=== PATIENT | female | born 1965 | race Caucasian/White ===

== ENCOUNTER 2016-09-03 07:19 | Emergency (ER) | payer MEDICAID ==
[~2016-09-03] VITALS: Ht 157.5 cm; Wt 75.8 kg
[~2016-09-03 07:19] MED LIST: ASPI-664 PO; CYAN500T46 PO; GABA100C PO; GLYB2.5T2 PO; SITA1TAB5 PO; UDROBDM PO
[2016-09-03 07:26] VITALS: Ht 157.5 cm; Wt 75.8 kg
[2016-09-03] MEDS ORDERED: ASPIRIN 325 MG TAB PO STA (07:38)
[2016-09-03] MEDS ORDERED: LIDOCAINE/MYLANTA 40 ML BTL PO ONE (08:00)
--- NOTE | 2016-09-03 08:33 | RADRPT ---
PROCEDURE: CT Brain without contrast. CLINICAL INDICATION: Left arm numbness TECHNIQUE: Routine CT scan of the brain was performed on a high resolution multi detector scanner without intravenous contrast. One or more of the following dose reduction techniques were used: Auto mated exposure control; Adjustment of the mA and/or kV according to patient size; Use of iterative r econstruction technique. CTDI = 43 mGy. DLP = 630 mGy-cm. COMPARISON: MRI brain 08/15/2016, CT brain 08/15/2016 FINDINGS: Hemorrhage: No evidence of intracranial hemorrhage. Acute ischemic changes: No evidence of acute ischemic changes. Mass effect/Midline shift: None. Parenchymal volume: Within normal limits for age. Ventricular system: Concordant with parenchymal volume. Chronic changes: Mild chronic-appearing microvascular ischemic changes of the supratentorial white m atter. Idiopathic appearing calcifications of the bilateral basal ganglia are present, unchanged. A therosclerotic calcifications of the cavernous portions of both internal carotid arteries are presen t. Extracranial soft tissues: Unremarkable. Calvarium: No fractures. Paranasal sinuses: Visualized paranasal sinuses are clear. Mastoid air cells: Visualized mastoid air cells are clear. IMPRESSION: No acute intracranial abnormalities. Mild chronic-appearing microvascular ischemic changes of the supratentorial white matter, unchanged. MRI of the brain may be useful for further evaluation. RPTAT: AADD .Daniel Walden MD, MD Date Time Electronically viewed and signed by .Daniel Walden MD, MD on 09/03/2016 08:32 .B/
--- NOTE | 2016-09-03 08:41 | RADRPT ---
PROCEDURE: XR Chest. CLINICAL INDICATION: chest pain TECHNIQUE: Single AP view of the chest were obtained COMPARISON: 08/15/2016 FINDINGS: The heart and mediastinum are within normal limits. The pulmonary vasculature are unremarkable. The aorta is unremarkable. There is no lung consolidation, pleural effusion or pneumothorax. There i s no acute osseous abnormality. IMPRESSION: No acute disease. RPTAT: AA .Brandie Contreras MD, Date Time Electronically viewed and signed by .Brandie Contreras MD, MD on 09/03/2016 08:40 .J/
--- NOTE | 2016-09-03 08:42 | RADRPT ---
PROCEDURE: CT cervical spine without contrast CLINICAL INDICATION: Left neck and upper back pain radiating to left arm TECHNIQUE: CT scan of the cervical spine was performed on a multidetector CT scanner.. No IV cont rast was administered. Coronal and sagittal reformatted images were obtained from the axial source images. Images were reviewed on a high-resolution PACS workstation. CTDI = 22.24 mGy DLP: 500.09 mGy-cm One or more of the following dose reduction techniques were used: Automated exposure control Adjustment of the mA and / or kV according to patient size Use of iterative reconstruction technique. COMPARISON: None. FINDINGS: There is no CT evidence of acute fracture or subluxation. There is straightening of the usual cervical lordosis. Vertebral body heights and alignment are oth erwise preserved. The intervertebral disk spaces are normal. Small anterior osteophytes are seen at C5-C6 with calcif ication/ossification of the disk. There is mild to moderate facet arthrosis at C7-T1 on the right. There is no evidence of central canal or foraminal stenosis at any level. The prevertebral soft tissues are normal. The lung apices are clear. The paraspinal soft tissues are grossly unremarkable. IMPRESSION: 1. No CT evidence of acute fracture subluxation of the cervical spine. If there is persistent clin ical concern consider MRI. 2. Straightening of the usual cervical lordosis. 3. Mild degenerative changes as above. RPTAT: UU .Jake Read MD, Date Time Electronically viewed and signed by .Jake Read MD, on 09/03/2016 08:41 .K/
[2016-09-03 08:50] LABS: BASOPHIL # 0.1 10^3/ul (0.0-0.1); BASOPHILS % 0.3 % (0.0-2.0); HEMATOCRIT 39.2 % (37.0-47.0); HEMOGLOBIN 13.5 g/dl (12.0-16.0); LYMPHOCYTES # 1.9 10^3/ul (0.8-2.9); LYMPHOCYTES % 11.3 % (15.0-51.0); MEAN CORPUSCULAR HEMOGLOBIN 31.7 pg (29.0-33.0); MEAN CORPUSCULAR HGB CONC 34.4 g/dl (32.0-37.0); MEAN CORPUSCULAR VOLUME 92.2 fl (82.0-101.0); MONOCYTE # 0.9 10^3/ul (0.3-0.9); MONOCYTES % 5.3 % (0.0-11.0); NEUTROPHIL # 13.7 10^3/ul (1.6-7.5); NEUTROPHILS % 83.1 % (39.0-77.0); PLATELET COUNT 443 10^3/UL (140-440); RED BLOOD COUNT 4.25 10^6/ul (4.20-5.40); RED CELL DISTRIBUTION WIDTH 12.8 % (11.5-14.5); UNCORRECTED WBC 16.5 10^3/ul (4.8-10.8); WHITE BLOOD COUNT 16.5 10^3/ul (4.8-10.8)
[2016-09-03] MEDS ORDERED: DICLOFENAC SODIUM 37.5 MG/ML VIAL IV STA (08:54)
[2016-09-03 08:58] LABS: INR 0.86; PARTIAL THROMBOPLASTIN TIME 24.7 Sec (25.0-35.0); PROTIME 11.7 Sec (12.2-14.2); PT RATIO 0.9
[2016-09-03 09:01] LABS: CHLORIDE 102 mmol/L (97-110); POTASSIUM 4.2 mmol/L (3.5-5.1); SODIUM 143 mmol/L (135-144)
[2016-09-03 09:03] LABS: CREATININE 0.58 mg/dl (0.44-1.00)
[2016-09-03 09:04] LABS: ANION GAP 17 (8-16); BLOOD UREA NITROGEN 25 mg/dl (7-20); CARBON DIOXIDE 28 mmol/L (21-31)
[2016-09-03 09:05] LABS: CALCIUM 9.7 mg/dl (8.4-10.2)
[2016-09-03 09:08] LABS: B-TYPE NATRIURETIC PEPTIDE 189 PG/ML (0-125)
[2016-09-03 09:12] LABS: TROPONIN-I < 0.012 ng/ml (0.00-0.12)
[2016-09-03 09:13] LABS: GLUCOSE 461 mg/dl (70-220)
[2016-09-03 09:29] LABS: CONDITION 1
[2016-09-03] MEDS ORDERED: SOD CHLORIDE 0.9% 1,000 ML IV ONE (09:30)
[2016-09-03 10:23] LABS: ADD UMIC NO; URINE BILIRUBIN (Dip) NEGATIVE (NEGATIVE); URINE BLOOD (Dip) NEGATIVE (NEGATIVE); URINE COLOR LT. YELLOW (YELLOW); URINE GLUCOSE (Dip) >=1000 % (NEGATIVE); URINE KETONES (Dip) NEGATIVE (NEGATIVE); URINE LEUKOCYTE ESTERASE (Dip) NEGATIVE (NEGATIVE); URINE NITRITE (Dip) NEGATIVE (NEGATIVE); URINE TOTAL PROTEIN (Dip) NEGATIVE (NEGATIVE); URINE UROBILINOGEN (Dip) 0.2 E.U./dL (0.1-1.0)
[2016-09-03] MEDS ORDERED: RANI150T9 PO (11:40)
[2016-09-03] MEDS ORDERED: ONDA4TAB11 PO (11:40)
[2016-09-03] MEDS ORDERED: NAPR-688 PO (11:40)
--- NOTE | 2016-09-03 12:10 | ERD ---
ER Documentation Chief Complaint Date/Time DATE: 09/03/16 TIME: 11:56 Chief Complaint back,cp, left arm numbness rad chest and back x 2 days HPI This 50-year-old female presents to the ER with midsternal burning chest pain that feels like it's hot that radiates to the back. She's had this for 2 days now. Chest has pain at the bottom of her posterior neck which travels all the way down her left arm to her left fingertips and causes numbness. Is made worse by certain neck movements. She has had nausea as well. ROS All systems reviewed and are negative except as per history of present illness. Medications Home Meds Active Scripts Ondansetron (Zofran Odt) 4 Mg Tab.rapdis, 4 MG PO Q6 for NAUSEA, #10 Prov:ESTHER COULTER DO 09/03/16 Naproxen* (Naproxen*) 500 Mg Tablet, 500 MG PO BID Y for PAIN, #20 TAB Prov:ESTHER COULTER DO 09/03/16 Ranitidine Hcl* (Zantac*) 150 Mg Tablet, 150 MG PO BID Y for EPIGASTRIC PAIN, # 30 TAB Prov:ESTHER COULTER DO 09/03/16 Aspirin* (Aspirin* EC) 81 Mg Tablet., 81 MG PO DAILY for 30 Days, #30 TAB 1 Refill Prov:TRAVON JETER MD 08/16/16 Gabapentin* (Neurontin*) 100 Mg Capsule, 100 MG PO BID, #60 CAP Prov:TRAVON JETER MD 08/16/16 Glyburide* (Glyburide*) 2.5 Mg Tablet, 2.5 MG PO BID, #60 TAB Prov:TRAVON JETER MD 08/16/16 Sitagliptin Phos/Metformin HCl (Janumet 50-1,000 mg Tablet) 1 Each Tablet, 1 EACH PO BID, #60 TAB Prov:TRAVON JETER MD 08/16/16 Cyanocobalamin* (Vitamin B12*) 500 Mcg Tab, 1000 MCG PO DAILY, #30 TAB Prov:TRAVON JETER MD 08/16/16 Discontinued Scripts Guaifenesin-Dextromethorphan* (Robitussin* DM) 100MG/10MG/5ML Syrup, 5 ML PO Q6H Y for COUGH, #100 ML Prov:TRAVON JETER MD 08/16/16 Allergies Allergies: Coded Allergies: No Known Allergy (Unverified , 09/03/16) PMhx/Soc History of Surgery: Yes (see note) Anesthesia Reaction: No Hx Neurological Disorder: No Hx Respiratory Disorders: No Hx Cardiac Disorders: No Hx Psychiatric Problems: No Hx Miscellaneous Medical Probl: Yes (see note) Hx Alcohol Use: No Hx Substance Use: No Hx Tobacco Use: No Smoking Status: Never smoker Physical Exam Vitals Vital Signs Date Time Temp Pulse Resp B/P Pulse Ox O2 Delivery O2 Flow Rate FiO2 09/03/16 11:14 98.1 81 16 142/78 99 Room Air 09/03/16 07:26 97.8 90 18 116/74 99 Physical Exam Const: [] No distress Head: Atraumatic Eyes: Normal Conjunctiva ENT: Normal External Ears, Nose and Mouth. Neck: Full range of motion..~ No meningismus. Resp: Clear to auscultation bilaterally Cardio: Regular rate and rhythm, no murmurs Abd: Soft, mild epigastric pain without guarding or rebound, non distended. Normal bowel sounds Skin: No petechiae or rashes Back: No midline or flank tenderness Ext: No cyanosis, or edema, good motor function of bilateral hands with good 2. sensation Hand. Sensation intact. Distal pulses intact all 4 extremities Neur: Awake and alert and oriented 3, no focal deficits Psych: Normal Mood and Affect Result Diagram: 09/03/16 0820 09/03/16 0820 Results 24 hrs Laboratory Tests Test 09/03/16 08:20 Activated Partial Thromboplast Time 24.7Sec Anion Gap 17 B-Type Natriuretic Peptide 189PG/ML Basophils # 0.110^3/ul Basophils % 0.3% Blood Urea Nitrogen 25mg/dl Calcium Level 9.7mg/dl Carbon Dioxide Level 28mmol/L Chloride Level 102mmol/L Creatinine 0.58mg/dl Eosinophils # 0.010^3/ul Eosinophils % 0.0% Glucose Level 461mg/dl Hematocrit 39.2% Hemoglobin 13.5g/dl INR International Normalized Ratio 0.86 Lymphocytes # 1.910^3/ul Lymphocytes % 11.3% Mean Corpuscular Hemoglobin 31.7pg Mean Corpuscular Hemoglobin Concent 34.4g/dl Mean Corpuscular Volume 92.2fl Mean Platelet Volume 9.0fl Monocytes # 0.910^3/ul Monocytes % 5.3% Neutrophils # 13.710^3/ul Neutrophils % 83.1% Nucleated Red Blood Cells # 0.010^3/ul Nucleated Red Blood Cells % 0.0/100WBC Platelet Count 15650^3/UL Potassium Level 4.2mmol/L Prothrombin Time 11.7Sec Prothrombin Time Ratio 0.9 Red Blood Count 4.2510^6/ul Red Cell Distribution Width 12.8% Sodium Level 143mmol/L Troponin I < 0.012ng/ml Urine Bilirubin NEGATIVE Urine Clarity CLEAR Urine Color LT. YELLOW Urine Glucose >=1000% Urine Hemoglobin NEGATIVE Urine Ketones NEGATIVE Urine Leukocyte Esterase NEGATIVE Urine Nitrite NEGATIVE Urine Specific [place] 1.020 Urine Total Protein NEGATIVE Urine Urobilinogen 0.2 E.U./dL Urine pH 6.0 White Blood Count 16.510^3/ul Current Medications Medications (Trade) Dose Ordered Sig/Tyree Route PRN Reason Start Time Stop Time Status Last Admin Dose Admin Miscellaneous Medication (Gi Cocktail (2)) 40 ml ONCE ONCE PO 09/03/16 08:00 09/03/16 08:01 DC 09/03/16 08:03 Aspirin (Aspirin) 325 mg ONCE STAT PO 09/03/16 07:38 09/03/16 07:46 DC 09/03/16 08:03 Diclofenac Sodium 37.5 mg 37.5 mg ONCE STAT IV 09/03/16 08:54 09/03/16 08:56 DC 09/03/16 09:18 Sodium Chloride (NS) 1,000 ml @ 1,000 mls/hr Q1H ONCE IV 09/03/16 09:30 09/03/16 10:29 DC 09/03/16 09:18 Procedures/MDM Patient with chest pain that is likely represented by GERD and neck pain with radicular symptoms likely radiculopathy, cervical and thoracic vertebrae. Patient does have evidence of osteoarthrosis at the T1 C7 interspace. There is no mass effect from all stenosis this does fit the patient's symptoms well as they increase with neck pain. Very low suspicion for acute cardiac syndrome or aortic dissection. Patient had the pain for 2 days without much resolution after she received a GI cocktail the pain went away completely. His also given Dilaudid just IV which helped with her radicular symptoms and she was feeling much better and very thankful prior to discharge. Vital signs were stable. She did have signs of dehydration with hemoconcentration with high hemoglobin. She also had hyperglycemia she had not been able take her diabetic medications today. She is given a liter of normal saline for these problems to hydrate. I' m discharging with primary care follow-up in the next couple days as well as instructions to obtain an echocardiogram as an outpatient. I'm discharging with Zantac, naproxen, Zofran. EKG interpretation: Normal sinus rhythm rate 86, normal axis, no ST or allergies concerning for acute ischemia, normal intervals. Q waves in anteroseptal leads. lumber salvager interpretation: Normal sinus rhythm without arrhythmia Chest x-ray interpretation: No acute process no any standard pneumothorax no pulmonary edema no fractures Departure Diagnosis: Primary Impression: GERD (gastroesophageal reflux disease) Additional Impressions: Chest pain Hyperglycemia Dehydration Condition: Stable Patient Instructions: Chest Pain, Uncertain Cause, Gerd (Adult) Additional Instructions: Llame al doctor IVA y ashleigh lisa FATOUMATA PARA DENTRO DE 2-3 CACERES.Dgale a la secretaria que nosotros le instruimos hacer esta fatoumata. Consigue un referal para un ECHOCARDIOGRAMA. Avise o llame si rogers condicin se empeora antes de la fatoumata. Regresa aqui si peor o no mejor. ESTHER COULTER DO Sep 03, 2016 12:07
[2016-09-03 12:45] VITALS: BP 136/88; PULSE 67; RESP 16; TEMP 98.5
== END 2016-09-03 12:47 | disposition home or self-care (01) ==
LOC: E/R 07:19
DX: K21.9 Gastro-esophageal reflux disease without esophagitis (principal); R11.0 Nausea; E86.0 Dehydration; R73.9 Hyperglycemia, unspecified; R07.9 Chest pain, unspecified; R20.0 Anesthesia of skin; Z79.82 Long term (current) use of aspirin; Z79.84 Long term (current) use of oral hypoglycemic drugs
CPT/HCPCS: 36415; 70450; 71010; 72125; 80048; 81003; 83880; 84484; 85025; 85610; 85730; 93005; 96374; J7030; Z7502; Z7610

== ENCOUNTER 2016-10-14 18:27 | Emergency (ER) | payer MEDICAID, OTHER ==
[~2016-10-14] VITALS: Ht 157.5 cm; Wt 67.2 kg
[~2016-10-14 18:27] MED LIST changes: +NAPR-688 PO; +ONDA4TAB11 PO; +RANI150T9 PO; -UDROBDM PO
[2016-10-14 18:53] VITALS: Ht 157.5 cm; Wt 67.2 kg
[2016-10-14] MEDS ORDERED: LACTATED RINGER'S 1,000 ML IV STA (19:07)
[2016-10-14] MEDS ORDERED: SOD CHLORIDE 0.9% 2,000 ML IV STA (19:07)
[2016-10-14] MEDS ORDERED: ONDANSETRON 4 MG INJ IV STA (19:17)
[2016-10-14 19:30] LABS: ADD SCAN DIFF NO
[2016-10-14 19:32] LABS: BASOPHIL # 0.1 10^3/ul (0.0-0.1); BASOPHILS % 0.6 % (0.0-2.0); EOSINOPHILS # 0.1 10^3/ul (0.0-0.5); EOSINOPHILS % 0.9 % (0.0-7.0); HEMATOCRIT 41.9 % (37.0-47.0); HEMOGLOBIN 14.4 g/dl (12.0-16.0); LYMPHOCYTES # 1.9 10^3/ul (0.8-2.9); LYMPHOCYTES % 22.1 % (15.0-51.0); MEAN CORPUSCULAR HEMOGLOBIN 31.6 pg (29.0-33.0); MEAN CORPUSCULAR HGB CONC 34.4 g/dl (32.0-37.0); MEAN CORPUSCULAR VOLUME 92.1 fl (82.0-101.0); MEAN PLATELET VOLUME 11.1 fl (7.4-10.4); MONOCYTE # 0.6 10^3/ul (0.3-0.9); MONOCYTES % 7.2 % (0.0-11.0); NEUTROPHILS % 68.9 % (39.0-77.0); PLATELET COUNT 296 10^3/UL (140-415); RED BLOOD COUNT 4.55 10^6/ul (4.20-5.40); WHITE BLOOD COUNT 8.7 10^3/ul (4.8-10.8)
[2016-10-14 19:45] LABS: POTASSIUM 4.5 mmol/L (3.5-5.1)
[2016-10-14 19:47] LABS: CREATININE 0.68 mg/dl (0.44-1.00)
[2016-10-14 19:48] LABS: BILIRUBIN,INDIRECT 0.2 mg/dl (0-1.1); BILIRUBIN,TOTAL 0.2 mg/dl (0.2-1.3); CALCIUM 9.2 mg/dl (8.4-10.2); TOTAL PROTEIN 6.7 g/dl (6.1-8.1)
--- NOTE | 2016-10-14 20:08 | ERD ---
ER Documentation Chief Complaint Date/Time DATE: 10/14/16 TIME: 20:08 Chief Complaint sent by clinic for blood sugar of >400 HPI Patient is a 50-year-old female with diabetes who presents with hyperglycemia. The patient was seen in the clinic and her sugar was over 400 so she was sent to the ER for further evaluation. She felt dizzy. Her blood pressure was low. She is supposed to be taking medications for her diabetes. Upon review of old medical record she has multiple visits to the ER many of which were for hyperglycemia. ROS All systems reviewed and are negative except as per history of present illness. Medications Home Meds Active Scripts Ranitidine Hcl* (Zantac*) 150 Mg Tablet, 150 MG PO BID Y for EPIGASTRIC PAIN, # 30 TAB Prov:ESTHER COULTER DO 09/03/16 Aspirin* (Aspirin* EC) 81 Mg Tablet.dr, 81 MG PO DAILY for 30 Days, #30 TAB 1 Refill Prov:TRAVON JETER MD 08/16/16 Gabapentin* (Neurontin*) 100 Mg Capsule, 100 MG PO BID, #60 CAP Prov:TRAVON JETER MD 08/16/16 Glyburide* (Glyburide*) 2.5 Mg Tablet, 2.5 MG PO BID, #60 TAB Prov:TRAVON JETER MD 08/16/16 Sitagliptin Phos/Metformin HCl (Janumet 50-1,000 mg Tablet) 1 Each Tablet, 1 EACH PO BID, #60 TAB Prov:TRAVON JETER MD 08/16/16 Reported Medications Meclizine Hcl* (Meclizine Hcl*) 25 Mg Tablet, 25 MG PO TID Y for DIZZINESS, TAB 10/14/16 Docusate Sodium* (Docusate Sodium*) 100 Mg Capsule, 100 MG PO TID, #60 CAP 10/14/16 Loratadine* (Loratadine*) 10 Mg Tablet, 10 MG PO DAILY, #30 TAB 10/14/16 Discontinued Scripts Ondansetron (Zofran Odt) 4 Mg Tab.rapdis, 4 MG PO Q6 for NAUSEA, #10 Prov:ESTHER COULTER DO 09/03/16 Naproxen* (Naproxen*) 500 Mg Tablet, 500 MG PO BID Y for PAIN, #20 TAB Prov:ESTHER COULTER DO 09/03/16 Cyanocobalamin* (Vitamin B12*) 500 Mcg Tab, 1000 MCG PO DAILY, #30 TAB Prov:TRAVON JETER MD 08/16/16 Allergies Allergies: Coded Allergies: No Known Allergy (Unverified , 10/14/16) PMhx/Soc History of Surgery: Yes (CS) Anesthesia Reaction: No Hx Neurological Disorder: No Hx Respiratory Disorders: No Hx Cardiac Disorders: No Hx Psychiatric Problems: No Hx Miscellaneous Medical Probl: Yes (DM, neuropathy) Hx Alcohol Use: No Hx Substance Use: No Hx Tobacco Use: No Smoking Status: Never smoker FmHx Family History: diabetes Physical Exam Vitals Vital Signs Date Time Temp Pulse Resp B/P Pulse Ox O2 Delivery O2 Flow Rate FiO2 10/14/16 18:53 98.7 90 20 89/49 98 Physical Exam Const: No acute distress Head: Atraumatic Eyes: Normal Conjunctiva ENT: Normal External Ears, Nose and Mouth. Neck: Full range of motion..~ No meningismus. Resp: Clear to auscultation bilaterally Cardio: Regular rate and rhythm, no murmurs Abd: Soft, non tender, non distended. Normal bowel sounds Skin: No petechiae or rashes Back: No midline or flank tenderness Ext: No cyanosis, or edema Neur: Awake and alert Psych: Normal Mood and Affect Result Diagram: 10/14/16192110/14/161921 Results 24 hrs Laboratory Tests Test 10/14/16 18:59 10/14/16 19:22 10/14/16 19:49 Bedside Glucose 360mg/dL 362mg/dL Alanine Aminotransferase (ALT/SGPT) 24IU/L Albumin 4.0g/dl Alkaline Phosphatase 150IU/L Anion Gap 18 Aspartate Amino Transf (AST/SGOT) 17IU/L Basophils # 0.110^3/ul Basophils % 0.6% Blood Urea Nitrogen 22mg/dl Calcium Level 9.2mg/dl Carbon Dioxide Level 27mmol/L Chloride Level 101mmol/L Creatinine 0.68mg/dl Direct Bilirubin 0.00mg/dl Eosinophils # 0.110^3/ul Eosinophils % 0.9% Glucose Level 388mg/dl Hematocrit 41.9% Hemoglobin 14.4g/dl Indirect Bilirubin 0.2mg/dl Lactic Acid Level 2.0mmol/L Lipase 309U/L Lymphocytes # 1.910^3/ul Lymphocytes % 22.1% Mean Corpuscular Hemoglobin 31.6pg Mean Corpuscular Hemoglobin Concent 34.4g/dl Mean Corpuscular Volume 92.1fl Mean Platelet Volume 11.1fl Monocytes # 0.610^3/ul Monocytes % 7.2% Neutrophils # 6.010^3/ul Neutrophils % 68.9% Nucleated Red Blood Cells # 0.010^3/ul Nucleated Red Blood Cells % 0.0/100WBC Platelet Count 82169^3/UL Potassium Level 4.5mmol/L Red Blood Count 4.5510^6/ul Red Cell Distribution Width 12.0% Sodium Level 141mmol/L Total Bilirubin 0.2mg/dl Total Protein 6.7g/dl White Blood Count 8.710^3/ul Current Medications Medications (Trade) Dose Ordered Sig/Tyree Route PRN Reason Start Time Stop Time Status Last Admin Dose Admin Sodium Chloride 2,000 ml @ 1,000 mls/hr Q2H STAT IV 10/14/16 19:07 10/14/16 21:06 10/14/16 19:33 Lactated Ringer's (Lr) 1,000 ml @ 1,000 mls/hr Q1H STAT IV 10/14/16 19:07 10/14/16 20:06 DC 10/14/16 19:33 Ondansetron HCl (Zofran Inj) 4 mg ONCE STAT IV 10/14/16 19:17 10/14/16 19:18 DC 10/14/16 19:33 Procedures/MDM EKG read by me: Rate/Rhythm: Regular rate and rhythm at a rate of 85 Intervals: Normal Impression: No evidence of ischemia or arrhythmia Patient is a 50-year-old female presents with acute hyperglycemia. She was found to have hyperglycemia but her bicarbonate was normal and at this point I doubt acute diabetic ketoacidosis. She was given 3 L of fluid for fluid resuscitation and feels much better. Her blood pressure is improved. I believe outpatient management is appropriate. The fluids will help to bring down her sugar as well. I will not give any insulin at this time. The patient can follow-up with her primary doctor within 24-48 hours for reevaluation. She will need to discuss with her primary doctor about potentially changing her diabetic regimen. Departure Diagnosis: Primary Impression: Hyperglycemia RAMILA SHEIKH MD Oct 14, 2016 20:08
[2016-10-14] MEDS ORDERED: LORA10TA3 PO (20:21)
[2016-10-14] MEDS ORDERED: DOCU-159 PO (20:22)
[2016-10-14] MEDS ORDERED: MECL-77 PO (20:25)
[2016-10-14 21:06] VITALS: BP 148/97; PULSE 93; RESP 15
== END 2016-10-14 21:06 | disposition home or self-care (01) ==
LOC: E/R 18:27
DX: E11.65 Type 2 diabetes mellitus with hyperglycemia (principal); R42 Dizziness and giddiness; Z79.84 Long term (current) use of oral hypoglycemic drugs; Z79.82 Long term (current) use of aspirin
CPT/HCPCS: 36415; 80048; 80076; 82962; 83605; 83690; 85025; 96374; J2405; J7030; J7120; Z7502; 93005

== ENCOUNTER 2016-11-15 16:55 | Emergency (ER) | payer OTHER ==
[~2016-11-15] VITALS: Ht 160 cm; Wt 68.0 kg
[~2016-11-15 16:55] MED LIST changes: -CYAN500T46 PO; +DOCU-159 PO; +LORA10TA3 PO; +MECL-77 PO; -NAPR-688 PO; -ONDA4TAB11 PO
[2016-11-15 17:02] VITALS: Ht 160 cm; Wt 68.0 kg
[2016-11-15] MEDS ORDERED: HYDROCODONE/APAP (5/325) TAB PO ONE (18:30)
[2016-11-15 18:59] LABS: ADD SCAN DIFF NO
[2016-11-15 19:01] LABS: BASOPHILS % 0.5 % (0.0-2.0); EOSINOPHILS # 0.1 10^3/ul (0.0-0.5); EOSINOPHILS % 1.5 % (0.0-7.0); HEMATOCRIT 44.4 % (37.0-47.0); HEMOGLOBIN 15.1 g/dl (12.0-16.0); LYMPHOCYTES # 2.3 10^3/ul (0.8-2.9); LYMPHOCYTES % 29.7 % (15.0-51.0); MEAN CORPUSCULAR HEMOGLOBIN 31.3 pg (29.0-33.0); MEAN CORPUSCULAR VOLUME 92.1 fl (82.0-101.0); MEAN PLATELET VOLUME 10.7 fl (7.4-10.4); MONOCYTE # 0.6 10^3/ul (0.3-0.9); MONOCYTES % 7.6 % (0.0-11.0); NEUTROPHIL # 4.7 10^3/ul (1.6-7.5); NEUTROPHILS % 60.3 % (39.0-77.0); PLATELET COUNT 286 10^3/UL (140-415); RED BLOOD COUNT 4.82 10^6/ul (4.20-5.40); RED CELL DISTRIBUTION WIDTH 12.2 % (11.5-14.5); WHITE BLOOD COUNT 7.8 10^3/ul (4.8-10.8)
[2016-11-15 19:02] LABS: ADD UMIC NO; URINE BILIRUBIN (Dip) NEGATIVE (NEGATIVE); URINE BLOOD (Dip) NEGATIVE (NEGATIVE); URINE COLOR LT. YELLOW (YELLOW); URINE KETONES (Dip) NEGATIVE (NEGATIVE); URINE LEUKOCYTE ESTERASE (Dip) NEGATIVE (NEGATIVE); URINE NITRITE (Dip) NEGATIVE (NEGATIVE); URINE TOTAL PROTEIN (Dip) NEGATIVE (NEGATIVE); URINE UROBILINOGEN (Dip) 0.2 E.U./dL (0.1-1.0)
--- NOTE | 2016-11-15 19:13 | RADRPT ---
PROCEDURE: CT Abdomen and Pelvis without contrast. CLINICAL INDICATION: Abdominal pain post fall with back pain TECHNIQUE: CT scan of the abdomen and pelvis without contrast was performed without intravenous co ntrast. Coronal and sagittal reformatted images were obtained from the axial source images. Images were reviewed on a high-resolution PACS workstation. CTDI 16 mGy, DLP 861 mGy-cm One or more of the following dose reduction techniques were used: Automated exposure control Adjustment of the mA and/or kV according to patient size. Use of iterative reconstruction technique. COMPARISON: 05/13/2016 FINDINGS: There is minimal scarring within the right middle lobe. The lung bases are otherwise clear. The hea rt size is normal. The aorta and its branches are normal in size and caliber with minimal atherosclerotic calcification s. Again noted is a right pelvic kidney with a few small nonobstructive calculi measuring up to 2 mm. T here is similar appearance of the small obstructive 2-3 mm calculi within the superior and inferior poles of the left kidney. There is no hydronephrosis. The ureters are normal in course and caliber. No perinephric fat stranding is noted. Evaluation of solid organs is limited due to the lack of intravenous contrast. However, the liver, g allbladder, spleen, pancreas, and adrenal glands are unremarkable. The distal esophagus is unremarkable. The stomach is mildly distended and grossly unremarkable. Th e small bowel loops are normal in caliber, without evidence for small bowel obstruction. Stool is n oted throughout the colon. There is no bowel wall thickening or pneumatosis. The appendix is visua lized and is unremarkable. There is no free intraperitoneal fluid or pneumoperitoneum. There is no mesenteric, retroperitoneal, or pelvic lymphadenopathy. The bladder is mildly distended, but grossly unremarkable. The uterus and adnexa are unremarkable. There is no pelvic free fluid. There are no acute fractures. Multilevel degenerative disk disease is present within the thoracolum bar spine more prominent at L5-S1. Mild degenerative changes are also visualized within both hips. RPTAT: ZZ IMPRESSION: 1. No acute intra-abdominal abnormality. 2. Pelvic right kidney with a few small calculi measuring up to 2 mm. 3. Few nonobstructive calculi within the left kidney measuring up to 2-3 mm. 4. No acute fracture. Multilevel degenerative disk disease within the thoracolumbar spine more pro minent at L5-S1. .Brandie Bosch MD, MD Date Time Electronically viewed and signed by .Brandie Bosch MD, MD on 11/15/2016 19:12 .T/
[2016-11-15 19:14] LABS: ALBUMIN 4.4 g/dl (3.3-4.9)
[2016-11-15 19:15] LABS: POTASSIUM 3.9 mmol/L (3.5-5.1)
[2016-11-15 19:17] LABS: BILIRUBIN,INDIRECT 0.4 mg/dl (0-1.1); BILIRUBIN,TOTAL 0.4 mg/dl (0.2-1.3); CREATININE 0.57 mg/dl (0.44-1.00)
[2016-11-15 19:18] LABS: ALBUMIN/GLOBULIN RATIO 1.1; CALCIUM 9.7 mg/dl (8.4-10.2); TOTAL PROTEIN 8.4 g/dl (6.1-8.1)
--- NOTE | 2016-11-15 19:36 | RADRPT ---
PROCEDURE: XR Lumbar Spine. CLINICAL INDICATION: Back pain from trauma from fall TECHNIQUE: Two views of the lumbar spine are available for review COMPARISON: CT abdomen/pelvis from 05/13/2016 FINDINGS: The lumbar vertebral body heights are preserved. There are no acute fractures. There is minimal lo ss of height and anterior wedging of the T11 and T12 vertebral bodies which is unchanged since the p rior CT and may be physiologic. There is severe disk space narrowing at L5-S1. There is minimal di sk space narrowing with anterior endplate osteophytes at L3-L4 and L4-L5. Disk spaces are otherwise intact. Alignment is intact. Facet joints are intact. RPTAT: ZTorsten IMPRESSION: 1. Severe degenerative disk disease at L5-S1. 2. No acute fracture or malalignment of the lumbar spine. .Brandie Bosch MD, MD Date Time Electronically viewed and signed by .Brandie Bosch MD, on 11/15/2016 19:35 .T/
--- NOTE | 2016-11-15 19:38 | RADRPT ---
PROCEDURE: XR sacrum and coccyx CLINICAL INDICATION: Trauma from fall TECHNIQUE: AP and lateral views of the sacrum and coccyx were performed. COMPARISON: CT abdomen/pelvis from 05/13/[address] FINDINGS: There is no acute fracture. The bilateral sacroiliac joints and sacral arcuate lines are intact wit h mild osseous spurring. No erosive changes are visualized. There is a round calcific structure ov erlying the left sacroiliac joint superiorly measuring about 1.2 cm corresponding with an injection granuloma as seen on the same day CT. RPTAT: ZZ IMPRESSION: 1. No acute fracture. 2. Mild degenerative changes of the bilateral sacroiliac joints. .Brandie Bosch MD, MD Date Time Electronically viewed and signed by .Brandie Bosch MD, on 11/15/2016 19:37 .T/
--- NOTE | 2016-11-15 19:38 | ERD ---
ER Documentation Chief Complaint Date/Time DATE: 11/15/16 TIME: 19:35 Chief Complaint TRIPPED ON CURB, LOWER BACK PAIN X 3DAYS HPI This a 50-year-old female who presents to the emergency department today complaining of low back pain after a fall, abdominal pain, "bleeding from her bellybutton".. States she has pain in her liver. States she has taken Tylenol for pain. Denies any fevers or chills, nausea or vomiting. ROS All systems reviewed and are negative except as per history of present illness. Medications Home Meds Active Scripts Acetaminophen* (Tylophen*) 500 Mg Capsule, 1 CAP PO Q6H Y for PAIN AND OR ELEVATED TEMP, #30 CAP Prov:JOSEPH WANG PA-C 11/15/16 Naproxen* (Naprosyn*) 500 Mg Tablet, 500 MG PO BID Y for PAIN AND/OR INFLAMMATION, #30 TAB Prov:JOSEPH WANG PA-C 11/15/16 Tramadol HCl (Tramadol HCl) 50 Mg Tablet, 50 MG PO Q4 Y for PAIN, #20 TAB Prov:JOSEPH WANG PA-C 11/15/16 Ranitidine Hcl* (Zantac*) 150 Mg Tablet, 150 MG PO BID Y for EPIGASTRIC PAIN, # 30 TAB Prov:ESTHER COULTER DO 09/03/16 Aspirin* (Aspirin* EC) 81 Mg Tablet., 81 MG PO DAILY for 30 Days, #30 TAB 1 Refill Prov:TRAVON JETER MD 08/16/16 Gabapentin* (Neurontin*) 100 Mg Capsule, 100 MG PO BID, #60 CAP Prov:TRAVON JETER MD 08/16/16 Glyburide* (Glyburide*) 2.5 Mg Tablet, 2.5 MG PO BID, #60 TAB Prov:TRAVON JETER MD 08/16/16 Sitagliptin Phos/Metformin HCl (Janumet 50-1,000 mg Tablet) 1 Each Tablet, 1 EACH PO BID, #60 TAB Prov:TRAVON JETER MD 08/16/16 Reported Medications Meclizine Hcl* (Meclizine Hcl*) 25 Mg Tablet, 25 MG PO TID Y for DIZZINESS, TAB 10/14/16 Docusate Sodium* (Docusate Sodium*) 100 Mg Capsule, 100 MG PO TID, #60 CAP 10/14/16 Loratadine* (Loratadine*) 10 Mg Tablet, 10 MG PO DAILY, #30 TAB 10/14/16 Allergies Allergies: Coded Allergies: No Known Allergy (Unverified , 10/14/16) PMhx/Soc History of Surgery: Yes (CS) Anesthesia Reaction: No Hx Neurological Disorder: No Hx Respiratory Disorders: No Hx Cardiac Disorders: No Hx Psychiatric Problems: No Hx Miscellaneous Medical Probl: Yes (DM, neuropathy) Hx Alcohol Use: No Hx Substance Use: No Hx Tobacco Use: No Physical Exam Vitals Vital Signs Date Time Temp Pulse Resp B/P Pulse Ox O2 Delivery O2 Flow Rate FiO2 11/15/16 19:50 98.2 88 16 102/54 100 Room Air 11/15/16 17:02 98.3 90 22 109/68 100 Physical Exam Const: No acute distress Head: Atraumatic Eyes: Normal Conjunctiva ENT: Normal External Ears, Nose and Mouth. Neck: Full range of motion..~ No meningismus. Resp: Clear to auscultation bilaterally Cardio: Regular rate and rhythm, no murmurs Abd: Soft, diffuse abdominal pain in all 4 quadrants. non distended. Normal bowel sounds Skin: No petechiae or rashes Back: Lumbar spine and coccyx with midline tenderness. Bilateral paraspinal tenderness. Pulses 2+. Distal neurovascularly intact Ext: No cyanosis, or edema Neur: Awake and alert Psych: Normal Mood and Affect Result Diagram: 11/15/16 1830 11/15/16 1830 Results 24 hrs Laboratory Tests Test 11/15/16 18:30 White Blood Count 7.810^3/ul Red Blood Count 4.8210^6/ul Hemoglobin 15.1g/dl Hematocrit 44.4% Mean Corpuscular Volume 92.1fl Mean Corpuscular Hemoglobin 31.3pg Mean Corpuscular Hemoglobin Concent 34.0g/dl Red Cell Distribution Width 12.2% Platelet Count 22805^3/UL Mean Platelet Volume 10.7fl Neutrophils % 60.3% Lymphocytes % 29.7% Monocytes % 7.6% Eosinophils % 1.5% Basophils % 0.5% Nucleated Red Blood Cells % 0.0/100WBC Neutrophils # 4.710^3/ul Lymphocytes # 2.310^3/ul Monocytes # 0.610^3/ul Eosinophils # 0.110^3/ul Basophils # 0.010^3/ul Nucleated Red Blood Cells # 0.010^3/ul Urine Color LT. YELLOW Urine Clarity CLEAR Urine pH 5.5 Urine Specific [place] >=1.030 Urine Ketones NEGATIVE Urine Nitrite NEGATIVE Urine Bilirubin NEGATIVE Urine Urobilinogen 0.2 E.U./dL Urine Leukocyte Esterase NEGATIVE Urine Hemoglobin NEGATIVE Urine Glucose 0.5%% Urine Total Protein NEGATIVE Sodium Level 140mmol/L Potassium Level 3.9mmol/L Chloride Level 102mmol/L Carbon Dioxide Level 29mmol/L Anion Gap 13 Blood Urea Nitrogen 21mg/dl Creatinine 0.57mg/dl Glucose Level 158mg/dl Calcium Level 9.7mg/dl Total Bilirubin 0.4mg/dl Direct Bilirubin 0.00mg/dl Indirect Bilirubin 0.4mg/dl Aspartate Amino Transf (AST/SGOT) 24IU/L Alanine Aminotransferase (ALT/SGPT) 29IU/L Alkaline Phosphatase 160IU/L Total Protein 8.4g/dl Albumin 4.4g/dl Globulin 4.00g/dl Albumin/Globulin Ratio 1.10 Lipase 258U/L Current Medications Medications (Trade) Dose Ordered Sig/Tyree Route PRN Reason Start Time Stop Time Status Last Admin Dose Admin Acetaminophen/ Hydrocodone Bitart 1 tab 1 tab ONCE ONCE PO 11/15/16 18:30 11/15/16 18:31 DC 11/15/16 18:43 Sodium Chloride (NS) 1,000 ml @ 1,000 mls/hr Q1H ONCE IV 11/15/16 20:00 11/15/16 20:59 11/15/16 19:50 [place] [id number] Radiology Main Line: [phone] DIAGNOSTIC IMAGING REPORT Patient: KARTHIK PIERRE : 1965 Age: 50 Sex: F MR #: [id number] DOS: 11/15/16 1813 Ordering MD: JOSEPH WANG PA-C Location: [facility] Room/Bed: PROCEDURE: CT Abdomen and Pelvis without contrast. CLINICAL INDICATION: Abdominal pain post fall with back pain TECHNIQUE: CT scan of the abdomen and pelvis without contrast was performed without intravenous contrast. Coronal and sagittal reformatted images were obtained from the axial source images. Images were reviewed on a high- resolution PACS workstation. CTDI 16 mGy, DLP 861 mGy-cm One or more of the following dose reduction techniques were used: Automated exposure control Adjustment of the mA and/or kV according to patient size. Use of iterative reconstruction technique. COMPARISON: 05/13/2016 FINDINGS: There is minimal scarring within the right middle lobe. The lung bases are otherwise clear. The heart size is normal. The aorta and its branches are normal in size and caliber with minimal atherosclerotic calcifications. Again noted is a right pelvic kidney with a few small nonobstructive calculi measuring up to 2 mm. There is similar appearance of the small obstructive 2-3 mm calculi within the superior and inferior poles of the left kidney. There is no hydronephrosis. The ureters are normal in course and caliber. No perinephric fat stranding is noted. Evaluation of solid organs is limited due to the lack of intravenous contrast. However, the liver, gallbladder, spleen, pancreas, and adrenal glands are unremarkable. The distal esophagus is unremarkable. The stomach is mildly distended and grossly unremarkable. The small bowel loops are normal in caliber, without evidence for small bowel obstruction. Stool is noted throughout the colon. There is no bowel wall thickening or pneumatosis. The appendix is visualized and is unremarkable. There is no free intraperitoneal fluid or pneumoperitoneum. There is no mesenteric, retroperitoneal, or pelvic lymphadenopathy. The bladder is mildly distended, but grossly unremarkable. The uterus and adnexa are unremarkable. There is no pelvic free fluid. There are no acute fractures. Multilevel degenerative disk disease is present within the thoracolumbar spine more prominent at L5-S1. Mild degenerative changes are also visualized within both hips. RPTAT: ZZ IMPRESSION: 1. No acute intra-abdominal abnormality. 2. Pelvic right kidney with a few small calculi measuring up to 2 mm. 3. Few nonobstructive calculi within the left kidney measuring up to 2-3 mm. 4. No acute fracture. Multilevel degenerative disk disease within the thoracolumbar spine more prominent at L5-S1. .Brandie Bosch MD, MD Date Time Electronically viewed and signed by .Brandie Bosch MD, MD on 11/15/2016 19: 12 .T/ CC: JOSEPH WANG PA-C DIAGNOSTIC IMAGING REPORT Patient: KARTHIK PIERRE : 1965 Age: 50 Sex: F MR #: [id number] DOS: 11/15/16 0000 Ordering MD: JOSEPH WANG PA-C Location: [facility] Room/Bed: PROCEDURE: XR Lumbar Spine. CLINICAL INDICATION: Back pain from trauma from fall TECHNIQUE: Two views of the lumbar spine are available for review COMPARISON: CT abdomen/pelvis from 05/13/2016 FINDINGS: The lumbar vertebral body heights are preserved. There are no acute fractures. There is minimal loss of height and anterior wedging of the T11 and T12 vertebral bodies which is unchanged since the prior CT and may be physiologic. There is severe disk space narrowing at L5-S1. There is minimal disk space narrowing with anterior endplate osteophytes at L3-L4 and L4-L5. Disk spaces are otherwise intact. Alignment is intact. Facet joints are intact. RPTAT: ZZ IMPRESSION: 1. Severe degenerative disk disease at L5-S1. 2. No acute fracture or malalignment of the lumbar spine. .Brandie Bosch MD, MD Date Time Electronically viewed and signed by .Brandie Bosch MD, MD on 11/15/2016 19: 35 .T/ CC: JOSEPH WANG PA-C DIAGNOSTIC IMAGING REPORT Patient: KARTHIK PIERRE : 1965 Age: 50 Sex: F MR #: [id number] DOS: 11/15/16 0000 Ordering MD: JOSEPH WANG PA-C Location: [facility] Room/Bed: PROCEDURE: XR sacrum and coccyx CLINICAL INDICATION: Trauma from fall TECHNIQUE: AP and lateral views of the sacrum and coccyx were performed. COMPARISON: CT abdomen/pelvis from 05/13/[address] FINDINGS: There is no acute fracture. The bilateral sacroiliac joints and sacral arcuate lines are intact with mild osseous spurring. No erosive changes are visualized. There is a round calcific structure overlying the left sacroiliac joint superiorly measuring about 1.2 cm corresponding with an injection granuloma as seen on the same day CT. RPTAT: ZZ IMPRESSION: 1. No acute fracture. 2. Mild degenerative changes of the bilateral sacroiliac joints. .Brandie Bosch MD, Date Time Electronically viewed and signed by .Brandie Bosch MD, on 11/15/2016 19: 37 .T/ CC: JOSEPH WANG PA-C Procedures/MDM This 50-year-old female who presents to the emergency department today with multiple complaints. Patient was complaining of back pain after mechanical fall 3 weeks ago and a reinjury 3 days ago. Given that there is trauma I did obtain images. Furthermore on physical exam patient was complaining of diffuse abdominal pain. Patient has a history of being admitted for hyperglycemia in the past. I did obtain laboratory workup as well as imaging of the patient's abdomen. Laboratory work shows no elevated white blood cell count. She is not anemic. Platelets are within normal limits. Electrolytes are within normal limits. Glucose is within normal limits. Liver functions within normal limits. Lipase is within normal limits. UA is negative for infection. CT abdomen pelvis noncontrast shows no acute intra-abdominal abnormality. There is a right kidney shows a few small calculi measuring up to 2 mm. There are a few nonobstructive calculi within the left kidney measuring up to 2-3 mm per there is no acute fracture. There is multilevel degenerative disc disease within the thoracic lumbar spine more prominent L5-S1. Images of the lumbar spine show no acute fracture. There is minimal loss of height and anterior wedging of the T11 and T12 vertebral bodies which is unchanged since prior CT may be physiologic. There is severe disc space narrowing at L5 and S1. There is minimal disc space narrowing with anterior endplate osteophytes at L3 and 4 and L4 and 5. The spaces are otherwise intact. Images of the lumbar spine show severe degenerative disc disease L5 and S1. Patient symptoms at this time is consistent with acute on chronic back pain secondary to fall. Her abdominal pain may be related to her renal stones. Patient's urine is negative for infection. She is afebrile and otherwise well- appearing. Low suspicion for pyelonephritis. Low suspicion for any acute surgical abdomen. Notified by nursing staff that blood pressure at discharge was 103/54. There is reported that patient was "wobbly" while walking. Patient was given a liter of fluids. She was also given [place] here in the emergency department for pain. Patient was given a prescription for tramadol for home, Naprosyn and Tylenol. Patient was signed out to Shonda Clements NP pending improvement in blood pressure. At this time the patient is stable for discharge and outpatient management. Patient should follow up with their PCP in the next 1-2 days. They may return to the emergency department sooner for any persistent or worsening of symptoms. Patient understood and agreed with the plan. Departure Diagnosis: Primary Impression: Multiple complaints Condition: JOSEPH Valentin PA-C Nov 15, 2016 19:38
[2016-11-15 19:50] VITALS: RESP 16; TEMP 98.2
[2016-11-15] MEDS ORDERED: TRAM50TA2 PO (19:51)
[2016-11-15] MEDS ORDERED: NAPR-260 PO (19:51)
[2016-11-15] MEDS ORDERED: ACET500C5 PO (19:53)
[2016-11-15] MEDS ORDERED: SOD CHLORIDE 0.9% 1,000 ML IV ONE (20:00)
[2016-11-15 20:36] VITALS: BP 113/71; PULSE 79
--- NOTE | 2016-11-15 21:36 | EN ---
Date/Time of Note Date/Time of Note DATE: 11/15/16 TIME: 21:35 ER Progress Note Gosia GUILLEN signed out patients to me, patient was getting 1 L normal saline IV bolus, recheck blood pressure was done, now is better, patient verbalizing much better, patient was discharged according to Gosia Granados instructions the patient is stable upon discharge. AALIYAH CRESPO NP Nov 15, 2016 21:36
== END 2016-11-15 20:49 | disposition home or self-care (01) ==
LOC: FTE 16:55
DX: S39.92XA Unspecified injury of lower back, initial encounter (principal); E11.9 Type 2 diabetes mellitus without complications; W18.39XA Other fall on same level, initial encounter; Y92.9 Unspecified place or not applicable
CPT/HCPCS: 36415; 72100; 72220; 74176; 80053; 81003; 83690; 85025; J7030; Z7502; Z7610

== ENCOUNTER 2016-12-16 00:30 | Inpatient (IN) | payer OTHER ==
[~2016-12-16] VITALS: Ht 157.5 cm; Wt 69.5 kg
[~2016-12-16 00:30] MED LIST changes: +ACET500C5 PO; +NAPR-260 PO; +TRAM50TA2 PO
[2016-12-16 00:37] VITALS: Ht 157.5 cm; Wt 69.5 kg
[2016-12-16] MEDS ORDERED: ONDANSETRON 4 MG INJ IV STA (02:09)
[2016-12-16] MEDS ORDERED: SOD CHLORIDE 0.9% 500 ML IV STA (02:09)
[2016-12-16] MEDS ORDERED: morphine 2 MG INJ IV STA (02:09)
--- NOTE | 2016-12-16 02:39 | ERD ---
ER Documentation Chief Complaint Date/Time DATE: 12/16/16 TIME: 02:38 Chief Complaint painful/burning/blood in urine x 2 days HPI 51-year-old female presents here in emergency department for complaints of lower abdominal pain and bilateral flank pain and hematuria dysuria for 2 days, burning pain is 6/10 scale, accompanied with hematuria. Patient did not take medications to help with symptoms. Patient is diabetic. Patient denies any diarrhea or vomiting, but is complaining of nausea. Patient denies any fever or chills. ROS All systems reviewed and are negative except as per history of present illness. Medications Home Meds Active Scripts Acetaminophen* (Tylophen*) 500 Mg Capsule, 1 CAP PO Q6H Y for PAIN AND OR ELEVATED TEMP, #30 CAP Prov:JSOEPH WANG PA-C 11/15/16 Naproxen* (Naprosyn*) 500 Mg Tablet, 500 MG PO BID Y for PAIN AND/OR INFLAMMATION, #30 TAB Prov:JOSEPH WANG PA-C 11/15/16 Tramadol HCl (Tramadol HCl) 50 Mg Tablet, 50 MG PO Q4 Y for PAIN, #20 TAB Prov:JOSEPH WANG PA-C 11/15/16 Ranitidine Hcl* (Zantac*) 150 Mg Tablet, 150 MG PO BID Y for EPIGASTRIC PAIN, # 30 TAB Prov:ESTHER COULTER DO 09/03/16 Aspirin* (Aspirin* EC) 81 Mg Tablet.dr, 81 MG PO DAILY for 30 Days, #30 TAB 1 Refill Prov:TRAVON JETER MD 08/16/16 Gabapentin* (Neurontin*) 100 Mg Capsule, 100 MG PO BID, #60 CAP Prov:TRAVON JETER MD 08/16/16 Glyburide* (Glyburide*) 2.5 Mg Tablet, 2.5 MG PO BID, #60 TAB Prov:TRAVON JETER MD 08/16/16 Sitagliptin Phos/Metformin HCl (Janumet 50-1,000 mg Tablet) 1 Each Tablet, 1 EACH PO BID, #60 TAB Prov:TRAVON JETER MD 08/16/16 Reported Medications Meclizine Hcl* (Meclizine Hcl*) 25 Mg Tablet, 25 MG PO TID Y for DIZZINESS, TAB 10/14/16 Docusate Sodium* (Docusate Sodium*) 100 Mg Capsule, 100 MG PO TID, #60 CAP 10/14/16 Loratadine* (Loratadine*) 10 Mg Tablet, 10 MG PO DAILY, #30 TAB 10/14/16 Allergies Allergies: Coded Allergies: No Known Drug Allergies (Verified Allergy, Unknown, 12/16/16) PMhx/Soc History of Surgery: Yes (CSx2) Anesthesia Reaction: No Hx Neurological Disorder: No Hx Respiratory Disorders: No Hx Cardiac Disorders: No Hx Psychiatric Problems: No Hx Miscellaneous Medical Probl: Yes (DM, neuropathy, leg swelling, kidney stones) Hx Alcohol Use: No Hx Substance Use: No Hx Tobacco Use: No Smoking Status: Never smoker FmHx Family History: No coronary disease, No diabetes, No other Physical Exam Vitals Vital Signs Date Time Temp Pulse Resp B/P Pulse Ox O2 Delivery O2 Flow Rate FiO2 12/16/16 04:54 97.6 84 16 101/57 98 12/16/16 00:37 99.0 98 20 129/70 97 Physical Exam GENERAL: The patient is well developed and appropriate for usual state of health, in no apparent distress. CHEST: Clear to auscultation bilaterally. There are no rales, wheezes or rhonchi. HEART: Regular rate and rhythm. No murmurs, clicks, rubs or gallops. No S3 or S4. ABDOMEN: Soft, nontender and nondistended. Good bowel sounds. No rebound or guarding. No gross peritonitis. No gross organomegaly or masses. No Flores sign or McBurney point tenderness. BACK: No midline tenderness. Bilateral CVA tenderness noted. EXTREMITIES: Equal pulses bilaterally. There is no peripheral clubbing, cyanosis or edema. No focal swelling or erythema. Full range of motion. Grossly neurovascularly intact. NEURO: Alert and oriented. Cranial nerves 2-12 intact. Motor strength in all 4 extremities with 5/5 strength. Sensation grossly intact. Normal speech and gait. SKIN: There is no apparent rash or petechia. The skin is warm and dry. HEMATOLOGIC AND LYMPHATIC: There is no evidence of excessive bruising or lymphedema. No gross cervical, axillary, or inguinal lymphadenopathy. Result Diagram: 12/16/16 0252 12/16/16 0252 Results 24 hrs Laboratory Tests Test 12/16/16 02:30 12/16/16 02:52 12/16/16 03:27 12/16/16 04:58 Urine Color RED Urine Clarity CLOUDY Urine pH 6.0 Urine Specific [place] 1.015 Urine Ketones NEGATIVE Urine Nitrite NEGATIVE Urine Bilirubin NEGATIVE Urine Urobilinogen 0.2 E.U./dL Urine Leukocyte Esterase TRACE Urine Microscopic RBC >200/HPF Urine Microscopic WBC 25-50/HPF Urine Squamous Epithelial Cells FEW Urine Bacteria FEW Urine Hemoglobin 3+ Urine Glucose >=1000% Urine Total Protein 1+ White Blood Count 18.710^3/ul Red Blood Count 4.4710^6/ul Hemoglobin 13.8g/dl Hematocrit 40.7% Mean Corpuscular Volume 91.1fl Mean Corpuscular Hemoglobin 30.9pg Mean Corpuscular Hemoglobin Concent 33.9g/dl Red Cell Distribution Width 12.4% Platelet Count 40725^3/UL Mean Platelet Volume 11.2fl Neutrophils % 80.9% Lymphocytes % 10.8% Monocytes % 6.4% Eosinophils % 1.1% Basophils % 0.3% Nucleated Red Blood Cells % 0.0/100WBC Neutrophils # 15.110^3/ul Lymphocytes # 2.010^3/ul Monocytes # 1.210^3/ul Eosinophils # 0.210^3/ul Basophils # 0.110^3/ul Nucleated Red Blood Cells # 0.010^3/ul Sodium Level 134mmol/L Potassium Level 4.5mmol/L Chloride Level 98mmol/L Carbon Dioxide Level 25mmol/L Anion Gap 16 Blood Urea Nitrogen 18mg/dl Creatinine 0.56mg/dl Glucose Level 481mg/dl Calcium Level 9.6mg/dl Total Bilirubin 0.5mg/dl Direct Bilirubin 0.00mg/dl Indirect Bilirubin 0.5mg/dl Aspartate Amino Transf (AST/SGOT) 16IU/L Alanine Aminotransferase (ALT/SGPT) 25IU/L Alkaline Phosphatase 218IU/L Total Protein 7.3g/dl Albumin 4.0g/dl Globulin 3.30g/dl Albumin/Globulin Ratio 1.21 Lipase 575U/L Bedside Glucose 398mg/dL 370mg/dL Current Medications Medications (Trade) Dose Ordered Sig/Tyree Route PRN Reason Start Time Stop Time Status Last Admin Dose Admin Sodium Chloride (NS) 500 ml @ 500 mls/hr Q1H STAT IV 12/16/16 02:09 12/16/16 03:08 DC 12/16/16 02:50 Morphine Sulfate (morphine) 2 mg ONCE STAT IV 12/16/16 02:09 12/16/16 02:12 DC 12/16/16 02:49 Ondansetron HCl (Zofran Inj) 4 mg ONCE STAT IV 12/16/16 02:09 12/16/16 02:12 DC 12/16/16 02:49 Insulin Aspart 10 unit 10 unit ONCE ONCE SC 12/16/16 03:30 12/16/16 03:31 DC 12/16/16 03:48 Sodium Chloride 500 ml @ 500 mls/hr Q1H ONCE IV 12/16/16 03:30 12/16/16 04:29 DC 12/16/16 03:32 Sodium Chloride 1,000 ml @ 1,000 mls/hr Q1H ONCE IV 12/16/16 05:30 12/16/16 06:29 Ceftriaxone Sodium (Rocephin) 50 ml @ 100 mls/hr ONCE ONCE IVPB 12/16/16 05:30 12/16/16 05:59 Normal saline IV bolus was given here in emergency department for rehydration, patient tolerated IV fluids.Patient was given medication for pain here in emergency department, after treatment, patient verbalized feeling much better. Patient's pain is improved.Patient was given Zofran here in the emergency department. After treatment, patient was able to tolerate po fluids here in the emergency department without any vomiting. There is no signs and symptoms of dehydration. PROCEDURE: CT ABDOMEN/PELVIS WITHOUT CONTRAST CLINICAL INDICATION: 51-year-old female with flank pain and hematuria. TECHNIQUE: The study was performed utilizing a [employer] VCT 64-slice CT scanner. Direct axial sections were obtained through the abdomen and pelvis without the use of intravenous contrast material. Sagittal and coronal reformations were obtained. One or more of the following dose reduction techniques were utilized: automated exposure control, adjustment of the mA and/ or kV according to patient's size or use of iterative reconstruction technique. The images were reviewed on a PACS workstation. CTD/vol = 14.0 mGy; Total Exam DLP = 815.8 mGy-cm. COMPARISON: CT abdomen/pelvis November 15, 2016. FINDINGS: There is minimal right middle lobe and trace right medial basal scarring without interval change. There is no evidence for significant pleural effusion. The liver has a normal size and contour without focal areas of abnormal density. No intrahepatic nor extrahepatic biliary ductal dilatation is seen. The gallbladder demonstrates no wall thickening nor pericholecystic fluid. No biliary stones are evident. The pancreas is without areas of abnormal attenuation. The spleen is identified and has a normal size without abnormal density. The adrenal glands are unremarkable. There is a ptotic right kidney extending into the right lower quadrant/pelvic region. There are a couple of punctate nonobstructing right upper and mid renal calculi. There are small nonobstructing left upper and lower pole renal ramon calculi with the largest calculus in the right upper pole measuring 3 x 2 mm and in the left lower pole ramon measuring 4 x 3 mm. These are similar to the patient's prior study. The urinary bladder contains a small volume of urine with a thickened wall measuring up to 12 mm There is [id number] retained stool throughout the colon without gross bowel obstruction. The appendix is visualized and is without abnormal thickening or surrounding inflammatory reaction. The uterus is unremarkable. There is no significant free fluid. The aortoiliac vessels are without aneurysmal dilatation. Degenerative changes are present within the spine most prominently within the lower thoracic and lumbar regions. IMPRESSION: 1. Bilateral small nonobstructing renal calculi. 2. Retained stool without gross bowel obstruction. 3. No CT evidence for appendicitis. 4. Thick-walled partially decompressed bladder. A cystitis could have this appearance. Clinical correlation is necessary. 5. Degenerative changes within the spine. .James Rivera MD, MD Date Time Electronically viewed and signed by .James Rivera MD, on 12/16/2016 03:31 .M/ CC: AALIYAH CRESPO [employer] Procedures/MDM Medical Decision Making: She has pyelonephritis with hyperglycemia and elevated lipase consistent with acute pancreatitis, discussed case with my attending physician, Dr. Regalado, agrees with plan of admission to the hospital, to start patient with IV Rocephin, patient was informed about this plan, agrees with the plan at this time, spoke with hospitalist, Dr. Mccabe, will admit patient to the hospital. Departure Diagnosis: Primary Impression: Pyelonephritis Additional Impressions: Pancreatitis Chronicity: acute Pancreatitis type: unspecified pancreatitis type Acute pancreatitis complication: unspecified Qualified Code: K85.90 - Acute pancreatitis, unspecified complication status, unspecified pancreatitis type Hyperglycemia Condition: Fair AALIYAH CRESPO NP Dec 16, 2016 02:39
[2016-12-16 02:59] LABS: ADD SCAN DIFF NO
[2016-12-16 03:10] LABS: POTASSIUM 4.5 mmol/L (3.5-5.1)
[2016-12-16 03:12] LABS: BILIRUBIN,INDIRECT 0.5 mg/dl (0-1.1); BILIRUBIN,TOTAL 0.5 mg/dl (0.2-1.3); CREATININE 0.56 mg/dl (0.44-1.00)
[2016-12-16 03:13] LABS: ALBUMIN/GLOBULIN RATIO 1.21; CALCIUM 9.6 mg/dl (8.4-10.2); TOTAL PROTEIN 7.3 g/dl (6.1-8.1)
[2016-12-16 03:17] LABS: ADD UMIC YES; URINE BILIRUBIN (Dip) NEGATIVE (NEGATIVE); URINE BLOOD (Dip) 3+ (NEGATIVE); URINE COLOR RED (YELLOW); URINE GLUCOSE (Dip) >=1000 % (NEGATIVE); URINE KETONES (Dip) NEGATIVE (NEGATIVE); URINE LEUKOCYTE ESTERASE (Dip) TRACE (NEGATIVE); URINE NITRITE (Dip) NEGATIVE (NEGATIVE); URINE TOTAL PROTEIN (Dip) 1+ (NEGATIVE); URINE UROBILINOGEN (Dip) 0.2 E.U./dL (0.1-1.0)
[2016-12-16 03:25] LABS: URINE RBCS >200 /HPF (0)
[2016-12-16 03:25] LABS: BASOPHIL # 0.1 10^3/ul (0.0-0.1); BASOPHILS % 0.3 % (0.0-2.0); EOSINOPHILS # 0.2 10^3/ul (0.0-0.5); EOSINOPHILS % 1.1 % (0.0-7.0); HEMATOCRIT 40.7 % (37.0-47.0); HEMOGLOBIN 13.8 g/dl (12.0-16.0); LYMPHOCYTES % 10.8 % (15.0-51.0); MEAN CORPUSCULAR HEMOGLOBIN 30.9 pg (29.0-33.0); MEAN CORPUSCULAR HGB CONC 33.9 g/dl (32.0-37.0); MEAN CORPUSCULAR VOLUME 91.1 fl (82.0-101.0); MEAN PLATELET VOLUME 11.2 fl (7.4-10.4); MONOCYTE # 1.2 10^3/ul (0.3-0.9); MONOCYTES % 6.4 % (0.0-11.0); NEUTROPHIL # 15.1 10^3/ul (1.6-7.5); NEUTROPHILS % 80.9 % (39.0-77.0); PLATELET COUNT 281 10^3/UL (140-415); RED BLOOD COUNT 4.47 10^6/ul (4.20-5.40); RED CELL DISTRIBUTION WIDTH 12.4 % (11.5-14.5); WHITE BLOOD COUNT 18.7 10^3/ul (4.8-10.8)
[2016-12-16 03:26] LABS: BACTERIA,URINE FEW; SQUAMOUS EPITHELIAL CELL,UR FEW
[2016-12-16] MEDS ORDERED: INSULIN ASPART [NOVOLOG] 3 ML PEN SC ONE ×2 (03:30→07:30)
[2016-12-16] MEDS ORDERED: SOD CHLORIDE 0.9% 500 ML IV ONE (03:30)
--- NOTE | 2016-12-16 03:31 | RADRPT ---
PROCEDURE: CT ABDOMEN/PELVIS WITHOUT CONTRAST CLINICAL INDICATION: 51-year-old female with flank pain and hematuria. TECHNIQUE: The study was performed utilizing a [employer] VCT 64-slice CT scanner. Direct axia l sections were obtained through the abdomen and pelvis without the use of intravenous contrast mate rial. Sagittal and coronal reformations were obtained. One or more of the following dose reduction t echniques were utilized: automated exposure control, adjustment of the mA and/or kV according to pat ient's size or use of iterative reconstruction technique. The images were reviewed on a PACS workst [email or web address]. CTD/vol = 14.0 mGy; Total Exam DLP = 815.8 mGy-cm. COMPARISON: CT abdomen/pelvis November 15, 2016. FINDINGS: There is minimal right middle lobe and trace right medial basal scarring without interval change. Th ere is no evidence for significant pleural effusion. The liver has a normal size and contour withou t focal areas of abnormal density. No intrahepatic nor extrahepatic biliary ductal dilatation is see n. The gallbladder demonstrates no wall thickening nor pericholecystic fluid. No biliary stones are evident. The pancreas is without areas of abnormal attenuation. The spleen is identified and has a normal size without abnormal density. The adrenal glands are unremarkable. There is a ptotic right k idney extending into the right lower quadrant/pelvic region. There are a couple of punctate nonobst ructing right upper and mid renal calculi. There are small nonobstructing left upper and lower pole renal ramon calculi with the largest calculus in the right upper pole measuring 3 x 2 mm and in the left lower pole ramon measuring 4 x 3 mm. These are similar to the patient's prior study. The urinary bladder contains a small volume of urine with a thickened wall measuring up to 12 mm There i s [id number] retained stool throughout the colon without gross bowel obstruction. The appendi x is visualized and is without abnormal thickening or surrounding inflammatory reaction. The uterus is unremarkable. There is no significant free fluid. The aortoiliac vessels are without aneurysmal dilatation. Degenerative changes are present within the spine most prominently within the lower thor acic and lumbar regions. IMPRESSION: 1. Bilateral small nonobstructing renal calculi. 2. Retained stool without gross bowel obstruction. 3. No CT evidence for appendicitis. 4. Thick-walled partially decompressed bladder. A cystitis could have this appearance. Clinical c orrelation is necessary. 5. Degenerative changes within the spine. .James Rivera MD, Date Time Electronically viewed and signed by .James Rivera MD, on 12/16/2016 03:31 .Norberto/
[2016-12-16 04:54] VITALS: TEMP 97.6
[2016-12-16] MEDS ORDERED: SOD CHLORIDE 0.9% 1,000 ML IV ONE (05:30)
[2016-12-16] MEDS ORDERED: CEFTRIAXONE 1 GM/50 ML (PMX) 50 ML IVPB ONE (05:30)
[2016-12-16] MEDS ORDERED: MECLIZINE 25 MG TAB PO PRN (07:30)
[2016-12-16] MEDS ORDERED: ACETAMINOPHEN 325 MG TAB PO PRN (07:30)
[2016-12-16] MEDS ORDERED: ONDANSETRON 4 MG INJ IV PRN (07:30)
[2016-12-16] MEDS ORDERED: morphine 2 MG INJ IV PRN (07:30)
[2016-12-16] MEDS ORDERED: RANITIDINE 150 MG TAB PO PRN (07:30)
[2016-12-16] MEDS ORDERED: NACL 0.9% 3 ML SYG IV SCH (07:30)
[2016-12-16] MEDS: INSULIN ASPART [NOVOLOG] 3 ML PEN SC SCH ×6 (08:00→23:45)
--- NOTE | 2016-12-16 08:12 | HP ---
Date/Time of Note Date/Time of Note DATE: 12/16/16 TIME: 07:58 Assessment/Plan VTE Prophylaxis VTE Prophylaxis Intervention: SCD's Assessment/Plan Assessment/Plan IMPRESSION 1. Sepsis as evidenced by leukocytosis and tachycardia 2/2 pyelonephritis 2. Gross Hematuria: likely 2/2 cystitis 3. Diabetes with hyperglycemia 4. Acute Pancreatitis 5. Hx of Dyslipidemia 6. Mild Hyponatremia PLAN Will keep NPO with IVF Abx Will f/u Culture results Adjust Insulin for better Glycemic control Pain mgmt Correct Electrolytes as needed HPI/ROS Admit Date/Time Admit Date/Time Hx of Present Illness This is a 51 yo female with history of diabetes and dyslipidemia who presented to ER c/o lower abd pain, bilateral flank pain, and hematuria, which occurs at the end of urination. Symptoms started 2 days ago. she reported weakness and fever as well. ER course: Vitals stable. WBC ~ 19,000, Glu almost 500, lipase ~ 600, UA consistent with UTI. CTa/p shows Bilateral small nonobstructing renal calculi, retained stool without gross bowel obstruction and hick-walled partially decompressed bladder. . PMH/Family/Social Past Surgical History Past Surgical Hx: no surgical history, other Social History Smoking Status: Never smoker Exam/Review of Systems Vital Signs Vitals Vital Signs Date Time Temp Pulse Resp B/P Pulse Ox O2 Delivery O2 Flow Rate FiO2 12/16/16 04:54 97.6 84 16 101/57 98 Exam Constitutional: other (sleepy, in mild distress) Head: atraumatic, normocephalic Eyes: EOMI, PERRL Respiratory: clear to auscultation, normal air movement Cardiovascular: nl pulses, regular rate and rhythm Gastrointestinal: other (tenderness on lower abd region and flank area), soft Extremities: normal pulses Labs Result Diagram: 12/16/16 0252 12/16/16 0252 Medications Medications Current Medications Sodium Chloride (NS) 1,000 ml @ 100 mls/hr Q10H IV ; Start 12/16/16 at 07:11; Status UNV Ondansetron HCl (Zofran Inj) 4 mg Q6H PRN IV NAUSEA AND/OR VOMITING; Start at 07:30; Status UNV Acetaminophen (Tylenol Tab) 650 mg Q6H PRN PO PAIN LEVEL 1-3 OR FEVER; Start at 07:30; Status UNV Morphine Sulfate (morphine) 2 mg Q4H PRN IV SEVERE PAIN LEVEL 7-10; Start 12/16 at 07:30; Status UNV Enoxaparin Sodium (Lovenox) 40 mg DAILY SC ; Start 12/16/16 at 09:00; Status UNV Miscellaneous Information (* Miscellaneous Pharmacy Order) HYPOGLYCEMIA PROTOCOL w... ONCE ONCE XX ; Start 12/16/16 at 07:30; Stop 12/16/16 at 07:31; Status UNV Aspirin (Halfprin) 81 mg DAILY PO ; Start 12/16/16 at 09:00; Status UNV Docusate Sodium (Colace) 100 mg TID PO ; Start 12/16/16 at 09:00; Status UNV Gabapentin (Neurontin) 100 mg BID PO ; Start 12/16/16 at 09:00; Status UNV Loratadine (Claritin) 10 mg DAILY PO ; Start 12/16/16 at 09:00; Status UNV Meclizine HCl (Antivert) 25 mg TID PRN PO DIZZINESS; Start 12/16/16 at 07:30; Status UNV Ranitidine HCl (Zantac) 150 mg BID PRN PO EPIGASTRIC PAIN; Start 12/16/16 at 07 :30; Status UNV Tramadol HCl (Ultram) 50 mg Q4 PRN PO PAIN; Start 12/16/16 at 07:30; Status UNV Miscellaneous Information 1 each BID PO ; Start 12/16/16 at 09:00; Status UNV Insulin Aspart (Novolog Insulin Pen) 12 unit ONCE ONCE SC ; Start 12/16/16 at 07:30; Stop 12/16/16 at 07:31; Status UNV PAULETTE CANNON MD Dec 16, 2016 08:11
[2016-12-16] MEDS: SOD CHLORIDE 0.9% 1,000 ML IV SCH ×2 (08:21→22:36)
[2016-12-16] MEDS ORDERED: GLUCOSE GEL 15 GRAM TUBE PO PRN ×2 (08:30)
[2016-12-16] MEDS ORDERED: GLUCAGON 1 MG INJ IM PRN (08:30)
[2016-12-16] MEDS ORDERED: DEXTROSE 50% 50 ML SYRINGE IV PRN ×2 (08:30)
[2016-12-16] MEDS ORDERED: GLUCOSE GEL 15 GRAM TUBE BUCCAL PRN (08:30)
[2016-12-16] MEDS ORDERED: ENOXAPARIN 40 MG/0.4 ML SYG SC SCH (09:00)
[2016-12-16] MEDS: GABAPENTIN 100 MG CAP PO SCH ×2 (09:25→22:30)
[2016-12-16] MEDS: ASPIRIN (EC) 81 MG TAB PO SCH (09:25)
[2016-12-16] MEDS: DOCUSATE SODIUM 100 MG CAP PO SCH ×3 (09:25→22:30)
[2016-12-16] MEDS: LORATADINE 10 MG TAB PO SCH (09:25)
[2016-12-16] MEDS ORDERED: SODI44SP19 NASAL (16:33)
[2016-12-16] MEDS ORDERED: IBUP-1542 PO (16:45)
[2016-12-16] MEDS ORDERED: ALBU18HF INHALATION (16:47)
[2016-12-16] MEDS ORDERED: INSU100V3 SC (16:53)
[2016-12-16] MEDS ORDERED: NOVO3I SC ×2 (16:56)
[2016-12-16] MEDS: metFORMIN 500 MG TAB PO SCH (18:06)
[2016-12-16 19:12] VITALS: BP 131/68; RESP 18
[2016-12-16] MEDS ORDERED: INSULIN GLARGINE [LANtus] 3 ML PEN SC SCH (20:00)
[2016-12-16] MEDS: traMADol 50 MG TAB PO PRN (22:31)
[2016-12-17] MEDS: SOD CHLORIDE 0.9% 1,000 ML IV SCH ×3 (04:00→22:23)
[2016-12-17 06:11] LABS: ADD SCAN DIFF NO
[2016-12-17 06:33] LABS: BASOPHILS % 0.6 % (0.0-2.0); EOSINOPHILS # 0.4 10^3/ul (0.0-0.5); EOSINOPHILS % 5.5 % (0.0-7.0); HEMATOCRIT 37.2 % (37.0-47.0); HEMOGLOBIN 12.7 g/dl (12.0-16.0); LYMPHOCYTES % 27.9 % (15.0-51.0); MEAN CORPUSCULAR HEMOGLOBIN 31.4 pg (29.0-33.0); MEAN CORPUSCULAR HGB CONC 34.1 g/dl (32.0-37.0); MEAN CORPUSCULAR VOLUME 92.1 fl (82.0-101.0); MEAN PLATELET VOLUME 10.9 fl (7.4-10.4); MONOCYTE # 0.6 10^3/ul (0.3-0.9); MONOCYTES % 8.2 % (0.0-11.0); NEUTROPHIL # 4.1 10^3/ul (1.6-7.5); NEUTROPHILS % 57.2 % (39.0-77.0); PLATELET COUNT 268 10^3/UL (140-415); RED BLOOD COUNT 4.04 10^6/ul (4.20-5.40); RED CELL DISTRIBUTION WIDTH 12.4 % (11.5-14.5); WHITE BLOOD COUNT 7.2 10^3/ul (4.8-10.8)
[2016-12-17 06:46] LABS: POTASSIUM 4.6 mmol/L (3.5-5.1)
[2016-12-17 06:49] LABS: ALBUMIN/GLOBULIN RATIO 0.96; BILIRUBIN,INDIRECT 0.3 mg/dl (0-1.1); BILIRUBIN,TOTAL 0.3 mg/dl (0.2-1.3); CALCIUM 8.8 mg/dl (8.4-10.2); CREATININE 0.48 mg/dl (0.44-1.00); TOTAL PROTEIN 6.1 g/dl (6.1-8.1)
[2016-12-17 07:37] VITALS: BP 134/68; RESP 16
[2016-12-17] MEDS: GABAPENTIN 100 MG CAP PO SCH ×2 (08:24→21:16)
[2016-12-17] MEDS: DOCUSATE SODIUM 100 MG CAP PO SCH ×3 (08:24→21:16)
[2016-12-17] MEDS: metFORMIN 500 MG TAB PO SCH ×2 (08:24→17:19)
[2016-12-17] MEDS: ASPIRIN (EC) 81 MG TAB PO SCH (08:25)
[2016-12-17] MEDS: LINAGLIPTIN 5 MG TABLET PO SCH (08:25)
[2016-12-17] MEDS: LORATADINE 10 MG TAB PO SCH (08:25)
[2016-12-17] MEDS: INSULIN ASPART [NOVOLOG] 3 ML PEN SC SCH ×7 (08:26→21:21)
[2016-12-17] MEDS ORDERED: CEFTRIAXONE 2 GM/50 ML (PMX) 50 ML IVPB SCH (13:30)
--- NOTE | 2016-12-17 13:39 | PN ---
Date/Time of Note Date/Time of Note DATE: 12/17/16 TIME: 13:37 Assessment/Plan VTE Prophylaxis VTE Prophylaxis Intervention: SCD's Lines/Catheters IV Catheter Type (from Nrs): Peripheral IV Urinary Cath still in place: No Assessment/Plan Chief Complaint/Hosp Course Assessment and plan 1. Sepsis secondary to pyelonephritis. Continue antibiotics. Awaiting final cultures. Adjust antibiotics accordingly. Analgesics as needed for pain 2. Reported hematuria likely secondary to #1. No further reports of hematuria. We'll monitor for now. 3. Diabetes. Patient underwent A1c of 13. We'll get certified adapted physical educator to follow. We'll adjust insulin regimen. 4. Acute pancreatitis. Improving at present. Able to tolerate diet. We'll monitor 5. Discontinue. Continue on statin medication Disposition and plan: Follow up with final urine cultures. Continue antibiotics for now. Adjust insulin for better blood glucose control. Discussed plan of care with Dr. Jaramillo Problems: Subjective 24 Hr Interval Summary Free Text/Dictation Still reports having flank pain bilaterally Exam/Review of Systems Vital Signs Vitals Vital Signs Date Time Temp Pulse Resp B/P Pulse Ox O2 Delivery O2 Flow Rate FiO2 12/17/16 07:37 98.2 83 16 134/68 95 12/16/16 16:14 Room Air Intake and Output 12/16/16 12/16/16 12/17/16 14:59 22:59 06:59 Intake Total 1250 ml Balance 1250 ml Exam Constitutional: alert, oriented Psych: nl mood/affect Head: normocephalic Eyes: nl conjunctiva Neck: No jvd Respiratory: clear to auscultation, normal air movement Cardiovascular: regular rate and rhythm Gastrointestinal: soft, tender (tender on bilateral flank) Musculoskeletal: nl extremities to inspection Extremities: normal pulses, No edema Neurological: [employer] FR[employer] COLORER II-XII intact, nl mental status, nl speech Skin: nl turgor Results Result Diagram: 12/17/1633 12/17/1633 Results 24 hrs Laboratory Tests Test 12/16/16 17:40 12/16/16 23:29 12/17/16 05:33 12/17/16 07:53 Bedside Glucose 387 H 278 H 268 H White Blood Count 7.2 # Red Blood Count 4.04 L Hemoglobin 12.7 Hematocrit 37.2 Mean Corpuscular Volume 92.1 Mean Corpuscular Hemoglobin 31.4 Mean Corpuscular Hemoglobin Concent 34.1 Red Cell Distribution Width 12.4 Platelet Count 268 Mean Platelet Volume 10.9 H Neutrophils % 57.2 Lymphocytes % 27.9 Monocytes % 8.2 Eosinophils % 5.5 Basophils % 0.6 Nucleated Red Blood Cells % 0.0 Neutrophils # 4.1 Lymphocytes # 2.0 Monocytes # 0.6 Eosinophils # 0.4 Basophils # 0.0 Nucleated Red Blood Cells # 0.0 Sodium Level 138 Potassium Level 4.6 Chloride Level 104 Carbon Dioxide Level 27 Anion Gap 12 Blood Urea Nitrogen 11 Creatinine 0.48 Glucose Level 327 #H Hemoglobin A1c 13.0 H Calcium Level 8.8 Total Bilirubin 0.3 Direct Bilirubin 0.00 Indirect Bilirubin 0.3 Aspartate Amino Transf (AST/SGOT) 16 Alanine Aminotransferase (ALT/SGPT) 25 Alkaline Phosphatase 117 Total Protein 6.1 # Albumin 3.0 #L Globulin 3.10 Albumin/Globulin Ratio 0.96 Test 12/17/16 11:47 Bedside Glucose 191 Medications Medications Current Medications Sodium Chloride (NS) 1,000 ml @ 100 mls/hr Q10H IV Last administered on 08:29; Admin Dose 100 MLS/HR; Start 12/16/16 at 08:00 Ondansetron HCl (Zofran Inj) 4 mg Q6H PRN IV NAUSEA AND/OR VOMITING; Start at 07:30 Acetaminophen (Tylenol Tab) 650 mg Q6H PRN PO PAIN LEVEL 1-3 OR FEVER Last administered on 12/16/16 17:57; Admin Dose 650 MG; Start 12/16/16 at 07:30 Morphine Sulfate (morphine) 2 mg Q4H PRN IV SEVERE PAIN LEVEL 7-10; Start 12/16 at 07:30 Aspirin (Halfprin) 81 mg DAILY PO Last administered on 12/17/16 08:25; Admin Dose 81 MG; Start 12/16/16 at 09:00 Docusate Sodium (Colace) 100 mg TID PO Last administered on 12/17/16 11:58; Admin Dose 100 MG; Start 12/16/16 at 09:00 Gabapentin (Neurontin) 100 mg BID PO Last administered on 12/17/16 08:24; Admin Dose 100 MG; Start 12/16/16 at 09:00 Loratadine (Claritin) 10 mg DAILY PO Last administered on 12/17/16 08:25; Admin Dose 10 MG; Start 12/16/16 at 09:00 Meclizine HCl (Antivert) 25 mg TID PRN PO DIZZINESS; Start 12/16/16 at 07:30 Ranitidine HCl (Zantac) 150 mg BID PRN PO EPIGASTRIC PAIN; Start 12/16/16 at 07 :30 Tramadol HCl (Ultram) 50 mg Q4H PRN PO PAIN Last administered on 12/16/16 22: 31; Admin Dose 50 MG; Start 12/16/16 at 07:30 Miscellaneous Information 1 ea NOTE XX ; Start 12/16/16 at 08:30 Glucose (Glutose) 15 gm Q15M PRN PO DECREASED GLUCOSE; Start 12/16/16 at 08:30 Glucose (Glutose) 22.5 gm Q15M PRN PO DECREASED GLUCOSE; Start 12/16/16 at 08: 30 Dextrose (D50w Syringe) 25 ml Q15M PRN IV DECREASED GLUCOSE; Start 12/16/16 at 08:30 Dextrose (D50w Syringe) 50 ml Q15M PRN IV DECREASED GLUCOSE; Start 12/16/16 at 08:30 Glucagon (Glucagen) 1 mg Q15M PRN IM DECREASED GLUCOSE; Start 12/16/16 at 08:30 Glucose (Glutose) 15 gm Q15M PRN BUCCAL DECREASED GLUCOSE; Start 12/16/16 at 08 :30 Linagliptin (Tradjenta) 5 mg DAILY PO Last administered on 12/17/16 08:25; Admin Dose 5 MG; Start 12/17/16 at 09:00 Insulin Glargine 20 unit 20 unit DAILY@20 SC ; Start 12/17/16 at 20:00 Ceftriaxone Sodium (Rocephin) 50 ml @ 100 mls/hr Q24H IVPB Last administered on 12/17/16 13:36; Admin Dose 100 MLS/HR; Start 12/17/16 at 13:30 AMINTA MCCLAIN Dec 17, 2016 13:39
[2016-12-17 19:11] VITALS: BP 123/70; RESP 18
[2016-12-17] MEDS: INSULIN GLARGINE [LANtus] 3 ML PEN SC SCH (21:19)
[2016-12-18] MEDS: traMADol 50 MG TAB PO PRN ×2 (00:05→07:54)
[2016-12-18 06:13] LABS: ADD SCAN DIFF NO
[2016-12-18 06:18] LABS: BASOPHILS % 0.4 % (0.0-2.0); EOSINOPHILS # 0.5 10^3/ul (0.0-0.5); HEMATOCRIT 38.5 % (37.0-47.0); HEMOGLOBIN 13.7 g/dl (12.0-16.0); LYMPHOCYTES # 2.1 10^3/ul (0.8-2.9); LYMPHOCYTES % 27.3 % (15.0-51.0); MEAN CORPUSCULAR HEMOGLOBIN 32.3 pg (29.0-33.0); MEAN CORPUSCULAR HGB CONC 35.6 g/dl (32.0-37.0); MEAN CORPUSCULAR VOLUME 90.8 fl (82.0-101.0); MEAN PLATELET VOLUME 11.2 fl (7.4-10.4); MONOCYTE # 0.6 10^3/ul (0.3-0.9); MONOCYTES % 8.3 % (0.0-11.0); NEUTROPHIL # 4.4 10^3/ul (1.6-7.5); NEUTROPHILS % 57.6 % (39.0-77.0); PLATELET COUNT 267 10^3/UL (140-415); RED BLOOD COUNT 4.24 10^6/ul (4.20-5.40); RED CELL DISTRIBUTION WIDTH 12.5 % (11.5-14.5); WHITE BLOOD COUNT 7.6 10^3/ul (4.8-10.8)
[2016-12-18 06:41] LABS: CALCIUM 8.8 mg/dl (8.4-10.2); CREATININE 0.46 mg/dl (0.44-1.00); POTASSIUM 4.3 mmol/L (3.5-5.1)
[2016-12-18 07:49] VITALS: BP 156/88; RESP 18
[2016-12-18] MEDS: GABAPENTIN 100 MG CAP PO SCH ×2 (07:54→20:56)
[2016-12-18] MEDS: LORATADINE 10 MG TAB PO SCH (07:54)
[2016-12-18] MEDS: DOCUSATE SODIUM 100 MG CAP PO SCH ×3 (07:55→20:56)
[2016-12-18] MEDS: LINAGLIPTIN 5 MG TABLET PO SCH (07:55)
[2016-12-18] MEDS: metFORMIN 500 MG TAB PO SCH ×2 (07:55→17:21)
[2016-12-18] MEDS: INSULIN ASPART [NOVOLOG] 3 ML PEN SC SCH ×7 (08:00→20:56)
[2016-12-18] MEDS: SOD CHLORIDE 0.9% 1,000 ML IV SCH ×2 (09:45→21:02)
[2016-12-18] MEDS: ASPIRIN (EC) 81 MG TAB PO SCH (09:45)
[2016-12-18] MEDS: LEVOFLOXACIN 500MG/D5W (PMX) 100 ML IVPB SCH (14:50)
--- NOTE | 2016-12-18 15:09 | PN ---
Date/Time of Note Date/Time of Note DATE: 12/18/16 TIME: 15:07 Assessment/Plan VTE Prophylaxis VTE Prophylaxis Intervention: SCD's Lines/Catheters IV C[facility]ter Type (from [facility]): [place] Urinary Cath still in place: No Assessment/Plan Chief Complaint/Hosp Course Assessment and plan 1. Sepsis secondary to pyelonephritis. Continue antibiotics. Noted with Escherichia coli in urine culture... Analgesics as needed for pain 2. Reported hematuria likely secondary to #1. No further reports of hematuria. We'll monitor for now. 3. Diabetes. Patient underwent A1c of 13. Continue insulin regimen. Stable at present 4. Acute pancreatitis. Improving at present. Able to tolerate diet. We' ll monitor 5. Discontinue. Continue on statin medication Disposition and plan: Continue antibiotics. Await for clinical improvement of pyelonephritis. Discharge him medically stable Discussed plan of care with Dr. Jaramillo Problems: Subjective 24 Hr Interval Summary Free Text/Dictation Still reports having flank pain but low but better today Exam/Review of Systems Vital Signs Vitals Vital Signs Date Time Temp Pulse Resp B/P Pulse Ox O2 Delivery O2 Flow Rate FiO2 12/18/16 07:49 98.3 85 18 156/88 97 12/16/16 16:14 Room Air Intake and Output 12/17/16 12/17/16 12/18/16 14:59 22:59 06:59 Intake Total 350 ml 2675 ml 2090 ml Output Total 700 ml Balance 350 ml 1975 ml 2090 ml Exam Constitutional: alert, oriented Psych: nl mood/affect Head: normocephalic Eyes: nl conjunctiva Neck: non-tender, supple Respiratory: clear to auscultation Cardiovascular: regular rate and rhythm Gastrointestinal: soft, tender (tender on bilateral flank) Musculoskeletal: No swelling Neurological: CUT ORDER HAND II-XII intact, nl mental status, nl speech Skin: nl turgor Results Result Diagram: 12/18/16 0505 12/18/16 0505 Results 24 hrs Laboratory Tests Test 12/17/16 16:10 12/17/16 17:17 12/17/16 21:06 12/18/16 02:00 Bedside Glucose 82 139 290 H 241 H Test 12/18/16 05:05 12/18/16 07:42 12/18/16 12:01 White Blood Count 7.6 Red Blood Count 4.24 Hemoglobin 13.7 Hematocrit 38.5 Mean Corpuscular Volume 90.8 Mean Corpuscular Hemoglobin 32.3 Mean Corpuscular Hemoglobin Concent 35.6 Red Cell Distribution Width 12.5 Platelet Count 267 Mean Platelet Volume 11.2 H Neutrophils % 57.6 Lymphocytes % 27.3 Monocytes % 8.3 Eosinophils % 6.0 Basophils % 0.4 Nucleated Red Blood Cells % 0.0 Neutrophils # 4.4 Lymphocytes # 2.1 Monocytes # 0.6 Eosinophils # 0.5 Basophils # 0.0 Nucleated Red Blood Cells # 0.0 Sodium Level 135 Potassium Level 4.3 Chloride Level 105 Carbon Dioxide Level 26 Anion Gap 8 Blood Urea Nitrogen 10 Creatinine 0.46 Glucose Level 283 H Calcium Level 8.8 Bedside Glucose 269 H 130 Medications Medications Current Medications Sodium Chloride (NS) 1,000 ml @ 100 mls/hr Q10H IV Last administered on 09:45; Admin Dose 100 MLS/HR; Start 12/16/16 at 08:00 Ondansetron HCl (Zofran Inj) 4 mg Q6H PRN IV NAUSEA AND/OR VOMITING; Start at 07:30 Acetaminophen (Tylenol Tab) 650 mg Q6H PRN PO PAIN LEVEL 1-3 OR FEVER Last administered on 12/16/16 17:57; Admin Dose 650 MG; Start 12/16/16 at 07:30 Morphine Sulfate (morphine) 2 mg Q4H PRN IV SEVERE PAIN LEVEL 7-10; Start 12/16 at 07:30 Aspirin (Halfprin) 81 mg DAILY PO Last administered on 12/18/16 09:45; Admin Dose 81 MG; Start 12/16/16 at 09:00 Docusate Sodium (Colace) 100 mg TID PO Last administered on 12/18/16 07:55; Admin Dose 100 MG; Start 12/16/16 at 09:00 Gabapentin (Neurontin) 100 mg BID PO Last administered on 12/18/16 07:54; Admin Dose 100 MG; Start 12/16/16 at 09:00 Loratadine (Claritin) 10 mg DAILY PO Last administered on 12/18/16 07:54; Admin Dose 10 MG; Start 12/16/16 at 09:00 Meclizine HCl (Antivert) 25 mg TID PRN PO DIZZINESS; Start 12/16/16 at 07:30 Ranitidine HCl (Zantac) 150 mg BID PRN PO EPIGASTRIC PAIN Last administered on 12/17/16 21:16; Admin Dose 150 MG; Start 12/16/16 at 07:30 Tramadol HCl (Ultram) 50 mg Q4H PRN PO PAIN Last administered on 12/18/16 07: 54; Admin Dose 50 MG; Start 12/16/16 at 07:30 Miscellaneous Information 1 ea NOTE XX ; Start 12/16/16 at 08:30 Glucose (Glutose) 15 gm Q15M PRN PO DECREASED GLUCOSE; Start 12/16/16 at 08:30 Glucose (Glutose) 22.5 gm Q15M PRN PO DECREASED GLUCOSE; Start 12/16/16 at 08: 30 Dextrose (D50w Syringe) 25 ml Q15M PRN IV DECREASED GLUCOSE; Start 12/16/16 at 08:30 Dextrose (D50w Syringe) 50 ml Q15M PRN IV DECREASED GLUCOSE; Start 12/16/16 at 08:30 Glucagon (Glucagen) 1 mg Q15M PRN IM DECREASED GLUCOSE; Start 12/16/16 at 08:30 Glucose (Glutose) 15 gm Q15M PRN BUCCAL DECREASED GLUCOSE; Start 12/16/16 at 08 :30 Linagliptin (Tradjenta) 5 mg DAILY PO Last administered on 12/18/16 07:55; Admin Dose 5 MG; Start 12/17/16 at 09:00 Insulin Glargine 20 unit 20 unit DAILY@20 SC Last administered on 12/17/16 21: 19; Admin Dose 20 UNIT; Start 12/17/16 at 20:00 Levofloxacin/ Dextrose (Levaquin 500mg/ D5W 100 ml (Pmx)) 100 ml @ 100 mls/hr Q24H IVPB Last administered on 12/18/16 14:50; Admin Dose 100 MLS/HR; Start at 14:30 AMINTA MCCLAIN Dec 18, 2016 15:09
[2016-12-18] MEDS ORDERED: NITROGLYCERIN (SL) 0.4 MG TAB SL PRN (18:00)
[2016-12-18 18:16] VITALS: BP 128/79; PULSE 86; RESP 18
[2016-12-18 19:55] VITALS: BP 109/59; RESP 18
[2016-12-18] MEDS: INSULIN GLARGINE [LANtus] 3 ML PEN SC SCH (21:04)
[2016-12-18] MEDS ORDERED: VITAMIN A & D 5 GM OINT PACKET TOP ONE (21:54)
[2016-12-19] MEDS: SOD CHLORIDE 0.9% 1,000 ML IV SCH ×2 (06:00→08:17)
[2016-12-19 06:05] LABS: ADD SCAN DIFF NO
[2016-12-19 06:08] LABS: BASOPHILS % 0.4 % (0.0-2.0); EOSINOPHILS # 0.4 10^3/ul (0.0-0.5); EOSINOPHILS % 5.7 % (0.0-7.0); HEMATOCRIT 35.7 % (37.0-47.0); HEMOGLOBIN 12.3 g/dl (12.0-16.0); LYMPHOCYTES # 2.1 10^3/ul (0.8-2.9); LYMPHOCYTES % 28.3 % (15.0-51.0); MEAN CORPUSCULAR HEMOGLOBIN 31.6 pg (29.0-33.0); MEAN CORPUSCULAR HGB CONC 34.5 g/dl (32.0-37.0); MEAN CORPUSCULAR VOLUME 91.8 fl (82.0-101.0); MEAN PLATELET VOLUME 10.8 fl (7.4-10.4); MONOCYTE # 0.7 10^3/ul (0.3-0.9); MONOCYTES % 9.4 % (0.0-11.0); NEUTROPHIL # 4.2 10^3/ul (1.6-7.5); NEUTROPHILS % 55.4 % (39.0-77.0); PLATELET COUNT 285 10^3/UL (140-415); RED BLOOD COUNT 3.89 10^6/ul (4.20-5.40); RED CELL DISTRIBUTION WIDTH 12.6 % (11.5-14.5); WHITE BLOOD COUNT 7.5 10^3/ul (4.8-10.8)
[2016-12-19 06:24] LABS: CALCIUM 8.9 mg/dl (8.4-10.2); CREATININE 0.52 mg/dl (0.44-1.00); POTASSIUM 4.3 mmol/L (3.5-5.1)
[2016-12-19 07:52] VITALS: BP 117/62; RESP 20
[2016-12-19] MEDS: GABAPENTIN 100 MG CAP PO SCH (08:14)
[2016-12-19] MEDS: DOCUSATE SODIUM 100 MG CAP PO SCH ×2 (08:14→12:27)
[2016-12-19] MEDS: metFORMIN 500 MG TAB PO SCH (08:14)
[2016-12-19] MEDS: LORATADINE 10 MG TAB PO SCH (08:14)
[2016-12-19] MEDS: ASPIRIN (EC) 81 MG TAB PO SCH (08:14)
[2016-12-19] MEDS: LINAGLIPTIN 5 MG TABLET PO SCH (08:14)
[2016-12-19] MEDS: INSULIN ASPART [NOVOLOG] 3 ML PEN SC SCH ×4 (08:16→12:23)
[2016-12-19] MEDS: traMADol 50 MG TAB PO PRN (12:27)
[2016-12-19] MEDS: LEVOFLOXACIN 500MG/D5W (PMX) 100 ML IVPB SCH (14:30)
--- NOTE | 2016-12-19 14:31 | PDOCDIS ---
Discharge Instructions DIAGNOSIS Discharge Diagnosis: pyelopnephrits CONDITION Patient Condition: Stable HOME CARE INSTRUCTIONS: Special Diet: 1800 donnell 2gm NA ACTIVITY: Activity Restrictions: Slowly Increase Activity Rest between Activity FOLLOW UP/APPOINTMENTS Appointments Followup with your primary doctor within the next 1-2 weeks to ensure complete resolution If you don't have one please let someone know, we can give you resources that may help you pick one. You may call Dr Demarcus Michaels's office. he's accepting new patients Name, Degree: Demarcus Michaels MD Specialty: Internal Medicine Comments: Office Address: [address] [place] [address] [place] [id number] Office Office You may also call your insurance company to assign one to you. Review your medication list with your nurse before leaving and if you need new prescriptions please let your nurse know. I may have made changes to your home medications or given you new prescriptions , please let your primary doctor know as well. Stay compliant with your medications and report any side effects to your PCP or pharmacist. Return to the ER if you have any concerns and cannot reach your doctors or call your insurance company, they usually have a nurse that can help you. REFERRALS Other Referrals Day Care Home Provider refferal for possible endoscopy ÁNGEL ROGERS December 19, 2016 14:31
--- NOTE | 2016-12-19 14:33 | DS ---
Date/Time of Note Date/Time of Note DATE: 12/19/16 TIME: 14:31 Discharge Summary Admission/Discharge Info Admit Date/Time Dec 16, 2016 at 04:37 Discharge Date/Time 12/19/16 Final Diagnosis 1. Sepsis secondary to pyelonephritis. 2. Reported hematuria likely secondary to #1. No further reports of hematuria. 3. Diabetes type 2 with very poor home control, A!C13. 4. Non mobstructing renal stones 5. Dyslipidemia Hx of Present Illness This is a 51 yo female with history of diabetes and dyslipidemia who presented to ER c/o lower abd pain, bilateral flank pain, and hematuria, which occurs at the end of urination. Symptoms started 2 days ago. she reported weakness and fever as well. ER course: Vitals stable. WBC ~ 19,000, Glu almost 500, lipase ~ 600, UA consistent with UTI. CTa/p shows Bilateral small nonobstructing renal calculi, retained stool without gross bowel obstruction and hick-walled partially decompressed bladder. . Home Meds Active Scripts Acetaminophen* (Tylophen*) 500 Mg Capsule, 1 CAP PO Q6H Y for PAIN AND OR ELEVATED TEMP, #30 CAP Prov:JOSEPH WANG PA-C 11/15/16 Tramadol HCl (Tramadol HCl) 50 Mg Tablet, 50 MG PO Q4 Y for PAIN, #20 TAB Prov:JOSEPH WANG PA-C 11/15/16 Ranitidine Hcl* (Zantac*) 150 Mg Tablet, 150 MG PO BID Y for EPIGASTRIC PAIN, # 30 TAB Prov:ESTHER COULTER DO 09/03/16 Aspirin* (Aspirin* EC) 81 Mg Tablet., 81 MG PO DAILY for 30 Days, #30 TAB 1 Refill Prov:TRAVON JETER MD 08/16/16 Gabapentin* (Neurontin*) 100 Mg Capsule, 100 MG PO BID, #60 CAP Prov:TRAVON JETER MD 08/16/16 Sitagliptin Phos/Metformin HCl (Janumet 50-1,000 mg Tablet) 1 Each Tablet, 1 EACH PO BID, #60 TAB Prov:TRAVON JETER MD 08/16/16 Reported Medications Insulin Aspart* (Novolog Insulin Pen*) 100 Unit/Ml Soln, 1 UNIT SC WITH MEALS, EA 12/16/16 Insulin Regular, Human (Humulin R) 100 Unit/1 Ml Vial, 10 UNIT SC INJECT 10UNITS TID, VIAL INJECT 10 UNITS BREAKFAST, LUNCH, DINNER INJECT 15 UNITS AT BEDTIME 12/16/16 Albuterol Sulfate* (Ventolin HFA*) 18 Gm Hfa.aer.ad, 1 PUFF INHALATION INHALE 1 PUFF Q4-Q6 Y for PRN, #1 INHALER 12/16/16 Ibuprofen* (Ibuprofen*) 600 Mg Tablet, 600 MG PO BID Y for PRN, TAB 12/16/16 Saline (Deep Sea) 44 Ml [place], 60 ML NASAL 1 SPRAY IEN Q4 TO 6 , SPRAY 12/16/16 Meclizine Hcl* (Meclizine Hcl*) 25 Mg Tablet, 25 MG PO TID Y for DIZZINESS, TAB 10/14/16 Docusate Sodium* (Docusate Sodium*) 100 Mg Capsule, 100 MG PO TID, #60 CAP 10/14/16 Loratadine* (Loratadine*) 10 Mg Tablet, 10 MG PO DAILY, #30 TAB 10/14/16 Discontinued Reported Medications Insulin Aspart* (Novolog Insulin Pen*) 100 Unit/Ml Soln, 1 UNIT SC WITH BREAKFAST, EA 12/16/16 Discontinued Scripts Naproxen* (Naprosyn*) 500 Mg Tablet, 500 MG PO BID Y for PAIN AND/OR INFLAMMATION, #30 TAB Prov:JOSEPH WANG PA-C 11/15/16 Glyburide* (Glyburide*) 2.5 Mg Tablet, 2.5 MG PO BID, #60 TAB Prov:TRAVON JETER MD 08/16/16 Pending Labs Laboratory Tests Test 12/18/16 16:59 12/18/16 20:55 12/19/16 05:00 12/19/16 08:02 Bedside Glucose 130mg/dL (70-220) 131mg/dL (70-220) 206mg/dL (70-220) White Blood Count 7.510^3/ul (4.8-10.8) Red Blood Count 3.8910^6/ul (4.20-5.40) Hemoglobin 12.3g/dl (12.0-16.0) Hematocrit 35.7% (37.0-47.0) Mean Corpuscular Volume 91.8fl (82.0-101.0) Mean Corpuscular Hemoglobin 31.6pg (29.0-33.0) Mean Corpuscular Hemoglobin Concent 34.5g/dl (32.0-37.0) Red Cell Distribution Width 12.6% (11.5-14.5) Platelet Count 64897^3/UL (140-415) Mean Platelet Volume 10.8fl (7.4-10.4) Neutrophils % 55.4% (39.0-77.0) Lymphocytes % 28.3% (15.0-51.0) Monocytes % 9.4% (0.0-11.0) Eosinophils % 5.7% (0.0-7.0) Basophils % 0.4% (0.0-2.0) Nucleated Red Blood Cells % 0.0/100WBC (0.0-0.0) Neutrophils # 4.210^3/ul (1.6-7.5) Lymphocytes # 2.110^3/ul (0.8-2.9) Monocytes # 0.710^3/ul (0.3-0.9) Eosinophils # 0.410^3/ul (0.0-0.5) Basophils # 0.010^3/ul (0.0-0.1) Nucleated Red Blood Cells # 0.010^3/ul (0.0-0.0) Sodium Level 136mmol/L (135-144) Potassium Level 4.3mmol/L (3.5-5.1) Chloride Level 106mmol/L (97-110) Carbon Dioxide Level 28mmol/L (21-31) Anion Gap 6 (8-16) Blood Urea Nitrogen 9mg/dl (7-20) Creatinine 0.52mg/dl (0.44-1.00) Glucose Level 213mg/dl (70-220) Calcium Level 8.9mg/dl (8.4-10.2) Test 12/19/16 12:02 Bedside Glucose 175mg/dL (70-220) ÁNGEL ROGERS December 19, 2016 14:33
[2016-12-19] MEDS ORDERED: LANT3I SC (15:05)
[2016-12-19] MEDS ORDERED: TRAM50TA2 PO (15:05)
[2016-12-19] MEDS ORDERED: PANT40TA3 PO (15:08)
[2016-12-19] MEDS ORDERED: LEVO750T25 PO (15:08)
[2016-12-19] MEDS ORDERED: LACT1CAP57 PO (16:27)
--- NOTE | 2016-12-21 20:03 | RADRPT ---
Vent Rate: 88 bpm RR Interval: 0 msec PA Interval: 184 msec QRS Duration: 74 msec QT Interval: 378 msec QTC Interval: 457 msec P-R-T [place]: 51 - 41 - 60 degrees Normal sinus rhythm Cannot rule out Anterior infarct , age undetermined Abnormal ECG Electronically Signed By: Edmundo Treadwell [id number]
== END 2016-12-19 17:50 | disposition home or self-care (01) | DRG 871 ==
LOC: FTE 00:30 → MS2 04:37 → UNDODISIN 16:57 → MS2 18:56
PROVIDERS: ADMIT Internal Medicine; ATTEND Internal Medicine
DX: A41.9 Sepsis, unspecified organism (principal); K85.90 Acute pancreatitis without necrosis or infection, unspecified; E11.65 Type 2 diabetes mellitus with hyperglycemia; E87.1 Hypo-osmolality and hyponatremia; N30.01 Acute cystitis with hematuria; N10 Acute pyelonephritis; N20.0 Calculus of kidney; E78.5 Hyperlipidemia, unspecified
CPT/HCPCS: 36415; 74176; 80048; 80053; 81001; 81003; 82962; 83036; 83690; 85025; 87086; 93005; 96372; 96374; 96375; J0696; J1815; J1956; J2270; J2405; J7030; J7040

== ENCOUNTER 2017-02-16 16:44 | Emergency (ER) | payer OTHER ==
[~2017-02-16] VITALS: Ht 157.5 cm; Wt 66.0 kg
[~2017-02-16 16:44] MED LIST changes: +ALBU18HF INHALATION; -GLYB2.5T2 PO; +INSU100V3 SC; +LACT1CAP57 PO; +LANT3I SC; +LEVO750T25 PO; -NAPR-260 PO; +NOVO3I SC; +PANT40TA3 PO; -RANI150T9 PO; +SODI44SP19 NASAL
[2017-02-16 16:53] VITALS: Ht 157.5 cm; Wt 66.0 kg
[2017-02-16] MEDS ORDERED: IBUPROFEN 600 MG TAB PO ONE (17:30)
[2017-02-16] MEDS ORDERED: TETRACAINE 0.5% 4 ML OPH BOTH EYES SCH (17:30)
[2017-02-16] MEDS ORDERED: FLUORESCEIN STRIP BOTH EYES ONE (17:30)
[2017-02-16] MEDS ORDERED: POLY10DR19 BOTH EYES (18:45)
[2017-02-16 18:55] VITALS: BP 113/63; PULSE 77; RESP 18; TEMP 98.3
--- NOTE | 2017-02-16 21:21 | ERD ---
ER Documentation Chief Complaint Date/Time DATE: 02/16/17 TIME: 21:18 Chief Complaint Complains of bilateral eye pain HPI This patient is a 51-year-old female with past medical history of bilateral chronic eye pain presenting to the emergency department with worsening bilateral eye pain, worse on the right side for the past 2 days. She reports mild bilateral vision changes but denies complete blindness, darkness, double vision, or seeing halos. She does wear glasses but not contacts. Symptoms are currently moderate in severity. She did see her school laboratory technician 2 days ago who prescribed her polymyxin ophthalmic ointment. She reports no relief with this. She denies fevers, chills, trauma, or other symptoms currently. ROS All systems reviewed and are negative except as per history of present illness. Medications Home Meds Active Scripts Polymyxin B Sulfate-TMP* (Polymyxin B-TMP Eye Drops*) 10 Ml Drops, 1 DROP BOTH EYES QID for 7 Days, #1 BOTTLE Prov:PAULETTE ORDOÑEZ PA-C 02/16/17 Lactobacillus Rhamnosus* (Culturelle*) 1 Each Cap.obie, 1 CAP PO BID for 10 Days, CAP Prov:KENCHANATITO M. 12/19/16 Levofloxacin* (Levaquin*) 750 Mg Tablet, 750 MG PO DAILY for 8 Days, TAB Prov:KENCHANATITO M. 12/19/16 Pantoprazole* (Protonix*) 40 Mg Tablet., 40 MG PO DAILY for 30 Days, TAB Prov:KENCHANATITO M. 12/19/16 Insulin Glargine* (Lantus*) 100 Unit/Ml Soln, 20 UNIT SC DAILY@20 for 30 Days, 2 Refills Prov:KENCHANATITO M. 12/19/16 Tramadol HCl (Tramadol HCl) 50 Mg Tablet, 50 MG PO Q4 Y for PAIN, #30 TAB Prov:KENCHANATITO M. 12/19/16 Acetaminophen* (Tylophen*) 500 Mg Capsule, 1 CAP PO Q6H Y for PAIN AND OR ELEVATED TEMP, #30 CAP Prov:JOSEPH WANG PA-C 11/15/16 Aspirin* (Aspirin* EC) 81 Mg Tablet., 81 MG PO DAILY for 30 Days, #30 TAB 1 Refill Prov:TRAVON JETER MD 08/16/16 Gabapentin* (Neurontin*) 100 Mg Capsule, 100 MG PO BID, #60 CAP Prov:TRAVON JETER MD 08/16/16 Sitagliptin Phos/Metformin HCl (Janumet 50-1,000 mg Tablet) 1 Each Tablet, 1 EACH PO BID, #60 TAB Prov:TRAVON JETER MD 08/16/16 Reported Medications Insulin Aspart* (Novolog Insulin Pen*) 100 Unit/Ml Soln, 1 UNIT SC WITH MEALS, EA 12/16/16 Insulin Regular, Human (Humulin R) 100 Unit/1 Ml Vial, 10 UNIT SC INJECT 10UNITS TID, VIAL INJECT 10 UNITS BREAKFAST, LUNCH, DINNER INJECT 15 UNITS AT BEDTIME 12/16/16 Albuterol Sulfate* (Ventolin HFA*) 18 Gm Hfa.aer.ad, 1 PUFF INHALATION INHALE 1 PUFF Q4-Q6 Y for PRN, #1 INHALER 12/16/16 Saline (Deep Sea) 44 Ml [place], 60 ML NASAL 1 SPRAY IEN Q4 TO 6 , SPRAY 12/16/16 Meclizine Hcl* (Meclizine Hcl*) 25 Mg Tablet, 25 MG PO TID Y for DIZZINESS, TAB 10/14/16 Docusate Sodium* (Docusate Sodium*) 100 Mg Capsule, 100 MG PO TID, #60 CAP 10/14/16 Loratadine* (Loratadine*) 10 Mg Tablet, 10 MG PO DAILY, #30 TAB 10/14/16 Allergies Allergies: Coded Allergies: No Known Drug Allergies (Verified Allergy, Unknown, 12/16/16) PMhx/Soc History of Surgery: Yes (c-sec 23 years ago) Anesthesia Reaction: No Hx Neurological Disorder: No Hx Respiratory Disorders: No Hx Cardiac Disorders: Yes (dyslipidemia) Hx Psychiatric Problems: No Hx Miscellaneous Medical Probl: No Hx Alcohol Use: No Hx Substance Use: No Hx Tobacco Use: No Physical Exam Vitals Vital Signs Date Time Temp Pulse Resp B/P Pulse Ox O2 Delivery O2 Flow Rate FiO2 02/16/17 18:55 98.3 77 18 113/63 98 Room Air 02/16/17 16:53 98.3 86 20 114/65 98 Physical Exam Const: Nontoxic, well-appearing female in mild distress secondary to pain. Head: Atraumatic Eyes: Bilateral conjunctival injection but no discharge noted. Visual acuity is 20/70 in the left eye, 20/70 in the right eye, and 20/70 bilaterally. ENT: Normal External Ears, Nose and Mouth. Neck: Full range of motion..~ No meningismus. Resp: Clear to auscultation bilaterally Cardio: Regular rate and rhythm, no murmurs Abd: Soft, non tender, non distended. Normal bowel sounds Skin: No petechiae or rashes Back: No midline or flank tenderness Ext: No cyanosis, or edema Neur: Awake and alert Psych: Normal Mood and Affect Results 24 hrs Current Medications Medications (Trade) Dose Ordered Sig/Tyree Route PRN Reason Start Time Stop Time Status Last Admin Dose Admin Fluorescein Sodium (Sblmu-A-Agrde) 1 strip ONCE ONCE BOTH EYES 02/16/17 17:30 02/16/17 17:31 DC Ibuprofen (Motrin) 600 mg ONCE ONCE PO 02/16/17 17:30 02/16/17 17:31 DC 02/16/17 17:28 Tetracaine HCl (Tetracaine 0.5% Steri-Unit Rosibel) 1 drop ONCE BOTH EYES 02/16/17 17:30 02/16/17 18:56 DC Procedures/MDM 51-year-old female presents to the emergency department secondary to complaints of bilateral eye pain. This is a chronic problem however it has been exacerbated recently. On physical examination there is bilateral conjunctival injection. There are no changes in visual acuity. Eye Exam w/ Wood's lamp: Visual Acuity: 20/70 in the left, 20/70 in the right, 20/70 bilaterally Visual Schmid: Intact in all four quadrants bilaterally Lac ducts/glands: No swelling Lids w/ evertion: Normal, no foreign body Conj/[place]: Clear, negative Fluorescein/Dasha's Anterior Chamber: Clear Retina exam: No obvious abnormality The patient has no evidence of corneal ulcerations or other abnormalities on Miranda lamp exam. The patient stable for outpatient management with a prescription for Polytrim ophthalmic drops. She is to have close follow-up with her school laboratory technician and she was also given follow-up information for the [facility]. Her questions and concerns were addressed. I have low suspicion for retinal detachment, acute angle-closure glaucoma, corneal ulceration, or other emergent conditions. The patient agreed with the discharge plan and diagnosis. Strict ER return precautions were discussed. Departure Diagnosis: Primary Impression: Conjunctivitis Conjunctivitis type: unspecified Laterality: bilateral Qualified Code: H10.9 - Conjunctivitis of both eyes, unspecified conjunctivitis type Condition: Fair Patient Instructions: Conjunctivitis Caused by Infection Referrals: [facility] Usted se lo hecho un examen mdico de control que le indica que no est en lisa condicin que requiera tratamiento urgente en el Departamento de Emergencia. Un estudio ms profundo y el tratamiento de rogers condicin pueden esperar sin ningn riesgo hasta que usted sea atendida/o en el consultorio de rogers mdico o lisa cl jose alfredo. Es responsabilidad suya arreglar lisa magno para el seguimiento del laine. MANEJO DE CONDICIONES NO URGENTES EN EL FUTURO 1) Si usted tiene un mdico de atencin primaria: Usted debera llamar a rogers mdico de atencin primaria antes de venir al departamento de emergencia. Despus de las horas de consultorio, rogers doctor o rogers asociado/a est disponible por telfono. El mdico o enfermero de preston en el servicio telefnico puede asesorarle por mohinder medio para atender el problema, o laine contrario se puede programar lisa magno. 2) Si usted no tiene un mdico de atencin primaria: Llame al mdico o clnica de referencia que aparece abajo nathalia las horas de consultorio para hacer lisa magno para que le vean. CLINICAS: [facility] [phone] [facility] [phone] [facility] [phone] [facility] [phone] [place] [id number] [phone] [facility]. [phone] [facility] Hours: Mon - Mon 9:00 AM - 5:00 PM Additional Instructions: No mas mejor en 2-3 turner, regresar. Mas peor en 24 horas, regresear rapidamente. Ir a doctor primario in 5-7 turner. Usar instrucciones cuando pricilla medicamento. PAULETTE ORDOÑEZ PA-C Feb 16, 2017 21:21
== END 2017-02-16 18:56 | disposition home or self-care (01) ==
LOC: FTE 16:44
DX: H10.9 Unspecified conjunctivitis (principal); E11.9 Type 2 diabetes mellitus without complications; Z79.4 Long term (current) use of insulin; Z79.84 Long term (current) use of oral hypoglycemic drugs; Z79.82 Long term (current) use of aspirin
CPT/HCPCS: Z7610 ×3; 99283

== ENCOUNTER 2017-03-01 11:04 | Emergency (ER) | payer OTHER ==
[~2017-03-01] VITALS: Ht 160 cm; Wt 65.5 kg
[~2017-03-01 11:04] MED LIST changes: +POLY10DR19 BOTH EYES
[2017-03-01 11:08] VITALS: Ht 160 cm; Wt 65.5 kg
[2017-03-01] MEDS ORDERED: ONDANSETRON 4 MG INJ IV STA (11:21)
[2017-03-01] MEDS ORDERED: morphine 4 MG/ML VIAL IV STA (11:21)
[2017-03-01] MEDS ORDERED: SOD CHLORIDE 0.9% 1,000 ML IV STA ×2 (11:21→12:45)
[2017-03-01 11:59] LABS: ADD SCAN DIFF NO
[2017-03-01 12:03] LABS: BASOPHIL # 0.1 10^3/ul (0.0-0.1); BASOPHILS % 0.4 % (0.0-2.0); EOSINOPHILS % 0.2 % (0.0-7.0); HEMATOCRIT 42.1 % (37.0-47.0); HEMOGLOBIN 14.3 g/dl (12.0-16.0); LYMPHOCYTES # 1.6 10^3/ul (0.8-2.9); LYMPHOCYTES % 9.2 % (15.0-51.0); MEAN CORPUSCULAR HEMOGLOBIN 30.8 pg (29.0-33.0); MEAN CORPUSCULAR VOLUME 90.5 fl (82.0-101.0); MEAN PLATELET VOLUME 11.5 fl (7.4-10.4); MONOCYTE # 1.2 10^3/ul (0.3-0.9); MONOCYTES % 7.2 % (0.0-11.0); NEUTROPHILS % 82.2 % (39.0-77.0); PLATELET COUNT 251 10^3/UL (140-415); RED BLOOD COUNT 4.65 10^6/ul (4.20-5.40)
[2017-03-01 12:19] LABS: ALBUMIN 4.2 g/dl (3.3-4.9); ALBUMIN/GLOBULIN RATIO 1.31; BILIRUBIN,INDIRECT 0.5 mg/dl (0-1.1); BILIRUBIN,TOTAL 0.5 mg/dl (0.2-1.3); CALCIUM 9.5 mg/dl (8.4-10.2); CREATININE 0.61 mg/dl (0.44-1.00); POTASSIUM 4.5 mmol/L (3.5-5.1); TOTAL PROTEIN 7.4 g/dl (6.1-8.1)
[2017-03-01 12:23] LABS: ADD UMIC YES; UR ASCORBIC ACID NEGATIVE (NEGATIVE); UR BACTERIA FEW /HPF (NONE SEEN); UR BILIRUBIN (Dip) NEGATIVE (NEGATIVE); UR BLOOD (Dip) 2+ mg/dL (NEGATIVE); UR CLARITY TURBID (CLEAR); UR COLOR YELLOW (YELLOW); UR GLUCOSE (Dip) 3+ mg/dL (NEGATIVE); UR KETONES (Dip) NEGATIVE (NEGATIVE); UR LEUKOCYTE ESTERASE (Dip) 3+ Leu/ul (NEGATIVE); UR MUCUS FEW /HPF (NONE SEEN); UR NITRITE (Dip) POSITIVE (NEGATIVE); UR RBC 37 /HPF (0-5); UR SQUAMOUS EPITHELIAL CELL FEW /HPF (FEW); UR TOTAL PROTEIN (Dip) 1+ mg/dl (NEGATIVE); UR UROBILINOGEN (Dip) NEGATIVE (NEGATIVE); UR WBC CLUMPS MANY /HPF (NONE SEEN)
--- NOTE | 2017-03-01 12:23 | RADRPT ---
PROCEDURE: CT Abdomen and pelvis without contrast. CLINICAL INDICATION: Abdominal pain TECHNIQUE: CT scan of the abdomen and pelvis without contrast was performed on a multidetector hig h-resolution CT scan. . Coronal and sagittal reformatted images were obtained from the axial [facility] e images. Standard CT scan of the abdomen pelvis without contrast protocols were performed. The total exam CTDI equals 11.3 mGy and the total exam DLP equals 622.27 mGy-cm. One or more of the following dose reduction techniques were used: - Automated exposure control. - Adjustment of the mA and/or kV according to patient size. Use of iterative reconstruction technique. COMPARISON: CT abdomen pelvis 12/16/2016 FINDINGS: The kidneys are normal in size without hydronephrosis or intra renal masses bilaterally. Again note d are multiple bilateral small nonobstructing calcified renal calculi unchanged. There is no eviden ce of calcified ureteral calculi. Again noted is urinary bladder wall thickening which may relate t o lack of optimal distension however cystitis should be excluded. The appendix is unremarkable. The stomach, small bowel and large bowel are unremarkable. Negative for intra-abdominal free air, free fluid, abscesses or lymphadenopathy. The liver spleen pancreas adrenal glands and gallbladder are unremarkable. No evidence of biliary d uctal dilation. Insulin noted are several accessory spleens along the inferior aspect of the spleen . The aorta is unremarkable. The lower thoracic abdominal pelvic wall is unremarkable. The lung base s are unremarkable. There is degenerative enthesopathy of the lower thoracic and lumbar spine witho ut acute osseous findings or osteoblastic/osteolytic lesions. IMPRESSION: 1. No significant change. 2. Bilateral small nonobstructing renal calcified calculi unchanged. Negative for obstructive urop athy. 3. Diffuse circumferential urinary bladder wall thickening may relate to lack of optimal distension however cystitis should be excluded. 4. No CT evidence of appendicitis or diverticulitis. Negative for intra-abdominal free air fluid a bscesses or lymphadenopathy. RPTAT:AAJJ Physician Matti Date Time Electronically viewed and signed by Physician Matti on 03/01/2017 12:23 BM/
[2017-03-01] MEDS ORDERED: ACETAMINOPHEN 500 MG TAB PO STA (12:25)
[2017-03-01] MEDS ORDERED: CEFTRIAXONE 1 GM/50 ML (PMX) 50 ML IVPB ONE (12:30)
[2017-03-01] MEDS ORDERED: INSULIN LISPRO 100 UNIT/ML VIAL SC STA (12:45)
--- NOTE | 2017-03-01 12:52 | ERD ---
ER Documentation Chief Complaint Date/Time DATE: 03/01/17 TIME: 12:48 Chief Complaint BLOOD IN URINE , LOWER BACK PAIN RADIATING TO PELVIC AREA HPI This patient is a 51-year-old female who has a history of diabetes complaining of right-sided flank pain that began early this morning. She admits to dysuria , hematuria as well as increased urinary frequency. He also states she has had a fever and nausea and vomiting. She has not taken any medications for her pain or fever. Pain is 8 out of 10 in the right flank and is throbbing in nature. Patient uses insulin at home but states she did not use it today and she last used it last night. ROS All systems reviewed and are negative except as per history of present illness. Medications Home Meds Active Scripts Ciprofloxacin Hcl* (Ciprofloxacin Hcl*) 500 Mg Tablet, 500 MG PO BID for 7 Days , TAB Prov:MINDY ROASLES PA-C 03/01/17 Polymyxin B Sulfate-TMP* (Polymyxin B-TMP Eye Drops*) 10 Ml Drops, 1 DROP BOTH EYES QID for 7 Days, #1 BOTTLE Prov:PAULETTE ORDOÑEZ PA-C 02/16/17 Lactobacillus Rhamnosus* (Culturelle*) 1 Each Cap.sprink, 1 CAP PO BID for 10 Days, CAP Prov:ÁNGEL ROGERS. 12/19/16 Levofloxacin* (Levaquin*) 750 Mg Tablet, 750 MG PO DAILY for 8 Days, TAB Prov:ÁNGEL ROGERS. 12/19/16 Pantoprazole* (Protonix*) 40 Mg Tablet.dr, 40 MG PO DAILY for 30 Days, TAB Prov:ÁNGEL ROGERS. 12/19/16 Insulin Glargine* (Lantus*) 100 Unit/Ml Soln, 20 UNIT SC DAILY@20 for 30 Days, 2 Refills Prov:KENÁNGEL Ha. 12/19/16 Tramadol HCl (Tramadol HCl) 50 Mg Tablet, 50 MG PO Q4 Y for PAIN, #30 TAB Prov:ÁNGEL ROGERS. 12/19/16 Acetaminophen* (Tylophen*) 500 Mg Capsule, 1 CAP PO Q6H Y for PAIN AND OR ELEVATED TEMP, #30 CAP Prov:JOSEPH WANG PA-C 11/15/16 Aspirin* (Aspirin* EC) 81 Mg Tablet.dr, 81 MG PO DAILY for 30 Days, #30 TAB 1 Refill Prov:TRAVON JETER MD 08/16/16 Gabapentin* (Neurontin*) 100 Mg Capsule, 100 MG PO BID, #60 CAP Prov:TRAVON JETER MD 08/16/16 Sitagliptin Phos/Metformin HCl (Janumet 50-1,000 mg Tablet) 1 Each Tablet, 1 EACH PO BID, #60 TAB Prov:TRAVON JETER MD 08/16/16 Reported Medications Insulin Aspart* (Novolog Insulin Pen*) 100 Unit/Ml Soln, 1 UNIT SC WITH MEALS, EA 12/16/16 Insulin Regular, Human (Humulin R) 100 Unit/1 Ml Vial, 10 UNIT SC INJECT 10UNITS TID, VIAL INJECT 10 UNITS BREAKFAST, LUNCH, DINNER INJECT 15 UNITS AT BEDTIME 12/16/16 Albuterol Sulfate* (Ventolin HFA*) 18 Gm Hfa.aer.ad, 1 PUFF INHALATION INHALE 1 PUFF Q4-Q6 Y for PRN, #1 INHALER 12/16/16 Saline (Deep Sea) 44 Ml Reagan, 60 ML NASAL 1 SPRAY IEN Q4 TO 6 , SPRAY 12/16/16 Meclizine Hcl* (Meclizine Hcl*) 25 Mg Tablet, 25 MG PO TID Y for DIZZINESS, TAB 10/14/16 Docusate Sodium* (Docusate Sodium*) 100 Mg Capsule, 100 MG PO TID, #60 CAP 10/14/16 Loratadine* (Loratadine*) 10 Mg Tablet, 10 MG PO DAILY, #30 TAB 10/14/16 Allergies Allergies: Coded Allergies: No Known Drug Allergies (Verified Allergy, Unknown, 12/16/16) PMhx/Soc History of Surgery: Yes (c-sec 23 years ago) Anesthesia Reaction: No Hx Neurological Disorder: No Hx Respiratory Disorders: No Hx Cardiac Disorders: Yes (dyslipidemia) Hx Psychiatric Problems: No Hx Miscellaneous Medical Probl: No Hx Alcohol Use: No Hx Substance Use: No Hx Tobacco Use: No FmHx Family History: diabetes Physical Exam Vitals Vital Signs Date Time Temp Pulse Resp B/P Pulse Ox O2 Delivery O2 Flow Rate FiO2 03/01/17 11:08 100.7 89 18 108/65 99 Physical Exam General: well developed, well nourished, alert, nontoxic, no distress Head: normocephalic, atraumatic Neck: Supple, nontender, no lymphadenopathy, no midline tenderness Respiratory: Clear to auscaultation bilaterally, speaks in full sentences, no use of accesory muscles or labored breathing, no rales, ronchi, or wheezing Cardiovascular: RRR, No murmurs GI: soft, non tender, non distended, negative murphys sign, negative mcburneys point tenderness, right-sided CVA tenderness, no rebound or guarding Back: no midline tenderness, no step offs or bony abnormalities, sensation to light touch in tact Result Diagram: 03/01/17 1146 03/01/17 1146 Results 24 hrs Laboratory Tests Test 03/01/17 11:40 03/01/17 11:46 Urine Color YELLOW Urine Clarity TURBID Urine pH 6.0 Urine Specific Marshall 1.020 Urine Ketones NEGATIVEmg/dL Urine Nitrite POSITIVEmg/dL Urine Bilirubin NEGATIVEmg/dL Urine Urobilinogen NEGATIVEmg/dL Urine Leukocyte Esterase 3+Usha/ul Urine Microscopic RBC 37/HPF Urine Microscopic WBC > 182/HPF Urine Squamous Epithelial Cells FEW/HPF Urine Bacteria FEW/HPF Urine Mucus FEW/HPF Urine Hemoglobin 2+mg/dL Urine Glucose 3+mg/dL Urine Total Protein 1+mg/dl White Blood Count 17.010^3/ul Red Blood Count 4.6510^6/ul Hemoglobin 14.3g/dl Hematocrit 42.1% Mean Corpuscular Volume 90.5fl Mean Corpuscular Hemoglobin 30.8pg Mean Corpuscular Hemoglobin Concent 34.0g/dl Red Cell Distribution Width 12.0% Platelet Count 75554^3/UL Mean Platelet Volume 11.5fl Neutrophils % 82.2% Lymphocytes % 9.2% Monocytes % 7.2% Eosinophils % 0.2% Basophils % 0.4% Nucleated Red Blood Cells % 0.0/100WBC Neutrophils # 14.010^3/ul Lymphocytes # 1.610^3/ul Monocytes # 1.210^3/ul Eosinophils # 0.010^3/ul Basophils # 0.110^3/ul Nucleated Red Blood Cells # 0.010^3/ul Sodium Level 127mmol/L Potassium Level 4.5mmol/L Chloride Level 93mmol/L Carbon Dioxide Level 29mmol/L Anion Gap 10 Blood Urea Nitrogen 19mg/dl Creatinine 0.61mg/dl Glucose Level 465mg/dl Calcium Level 9.5mg/dl Total Bilirubin 0.5mg/dl Direct Bilirubin 0.00mg/dl Indirect Bilirubin 0.5mg/dl Aspartate Amino Transf (AST/SGOT) 14IU/L Alanine Aminotransferase (ALT/SGPT) 24IU/L Alkaline Phosphatase 150IU/L Total Protein 7.4g/dl Albumin 4.2g/dl Globulin 3.20g/dl Albumin/Globulin Ratio 1.31 Lipase 115U/L Current Medications Medications (Trade) Dose Ordered Sig/Tyree Route PRN Reason Start Time Stop Time Status Last Admin Dose Admin Sodium Chloride (NS) 1,000 ml @ 1,000 mls/hr Q1H STAT IV 03/01/17 11:21 03/01/17 12:20 DC 03/01/17 11:49 Morphine Sulfate (morphine) 4 mg ONCE STAT IV 03/01/17 11:21 03/01/17 11:23 DC 03/01/17 11:49 Ondansetron HCl (Zofran Inj) 4 mg ONCE STAT IV 03/01/17 11:21 03/01/17 11:23 DC 03/01/17 11:49 Acetaminophen 1000 mg 1,000 mg ONCE STAT PO 03/01/17 12:25 03/01/17 12:26 DC 03/01/17 13:08 Ceftriaxone Sodium (Rocephin) 50 ml @ 100 mls/hr ONCE ONCE IVPB 03/01/17 12:30 03/01/17 12:59 DC 03/01/17 13:09 Insulin Human Lispro 10 unit 10 unit ONCE STAT SC 03/01/17 12:45 03/01/17 12:48 DC 03/01/17 13:11 Sodium Chloride (NS) 1,000 ml @ 1,000 mls/hr Q1H STAT IV 03/01/17 12:45 03/01/17 13:44 DC 03/01/17 13:10 Procedures/MDM This patient has right flank pain and fever 100.7. She was given Tylenol. She was given IV fluids and pain medication. She has an elevated white blood cell count of 17 and her urine shows infection. She has evidence of pyelonephritis. Her blood sugar is also elevated greater than 450 without any evidence of DKA. Her CT scan of the abdomen and pelvis does not show any acute emergent pathology. I reviewed the case with Dr. Regalado my supervising physician who recommended giving the patient Humalog subcu as well as IV fluids. At discharge her blood sugar had improved to 309. She was also given Rocephin here. She will be discharged with Keflex. Recommended this patient follow up with her primary care doctor within 48 hours or return to the emergency room for any worsening of symptoms. However this time I do believe there is suitable for outpatient management. I answered all their questions and they agreed with the plan and were discharged home. Departure Diagnosis: Primary Impression: Type 2 diabetes mellitus with hyperglycemia Additional Impression: Pyelonephritis Condition: Stable MINDY ROSALES PA-C Mar 01, 2017 12:51
[2017-03-01] MEDS ORDERED: CIPR500T4 PO (13:13)
[2017-03-01 14:35] VITALS: BP 125/69; PULSE 77; RESP 18
== END 2017-03-01 14:36 | disposition home or self-care (01) ==
LOC: FTE 11:04
DX: N12 Tubulo-interstitial nephritis, not specified as acute or chronic (principal); E11.65 Type 2 diabetes mellitus with hyperglycemia; Z79.4 Long term (current) use of insulin; Z79.82 Long term (current) use of aspirin
CPT/HCPCS: 74176; 80053; 81001; 82962; 83690; 85025; J0696; J1815; J2270; J2405; J7030; Z7610; 36415; 96372; 96374; 96375

== ENCOUNTER 2017-04-07 18:25 | Inpatient (IN) | payer OTHER ==
[~2017-04-07] VITALS: Ht 157.5 cm; Wt 64.5 kg
[2017-04-07 18:25] VITALS: Ht 157.5 cm; Wt 64.5 kg
[~2017-04-07 18:25] MED LIST changes: +ACET1TAB40 PO; +ACYC400T2 PO; +ACYC400T84 PO; +ACYC800T PO; +CIPR500T4 PO; +CYAN500T46 PO; +ERYT1OIN6 LEFT EYE; +ESOM20CA PO; +ESOM40CA PO; +FAMO-96 PO; +GLIP5TAB13 PO; +GLYB2.5T2 PO; +HYDR-3498 PO; +HYDR-906 PO; +IBUP-1542 PO; +MAG355OR15 PO; +METF1000 PO; +METF500T PO; +NAPR-260 PO; +NAPR-688 PO; +NAPR220C2 PO; +ONDA4TAB11 PO; +ONDA4TAB35 PO; +ONDA4TAB95 PO; +PRED20TA PO; +RANI150T9 PO; +SIMV20TA2 PO; +SITA100T8 PO; +SITA1TBM7 PO; +TRAM-40 PO; +UDROBDM PO
[2017-04-07 20:27] LABS: URINE BLOOD (Dip) POC Trace-intact (NEGATIVE)
[2017-04-07] MEDS ORDERED: SOD CHLORIDE 0.9% 1,000 ML IV STA (20:30)
[2017-04-07] MEDS ORDERED: ONDANSETRON 4 MG INJ IV STA (20:30)
[2017-04-07] MEDS ORDERED: KETOROLAC 30 MG INJ IV STA (20:30)
[2017-04-07 20:41] LABS: BASOPHIL # 0.1 10^3/ul (0.0-0.1); BASOPHILS % 0.8 % (0.0-2.0); EOSINOPHILS # 0.1 10^3/ul (0.0-0.5); EOSINOPHILS % 1.3 % (0.0-7.0); HEMATOCRIT 38.7 % (37.0-47.0); HEMOGLOBIN 13.6 g/dl (12.0-16.0); LYMPHOCYTES # 2.1 10^3/ul (0.8-2.9); LYMPHOCYTES % 27.1 % (15.0-51.0); MEAN CORPUSCULAR HEMOGLOBIN 31.3 pg (29.0-33.0); MEAN CORPUSCULAR HGB CONC 35.1 g/dl (32.0-37.0); MEAN CORPUSCULAR VOLUME 89.2 fl (82.0-101.0); MEAN PLATELET VOLUME 11.7 fl (7.4-10.4); MONOCYTE # 0.5 10^3/ul (0.3-0.9); MONOCYTES % 6.9 % (0.0-11.0); NEUTROPHILS % 63.2 % (39.0-77.0); PLATELET COUNT 277 10^3/UL (140-415); RED BLOOD COUNT 4.34 10^6/ul (4.20-5.40); RED CELL DISTRIBUTION WIDTH 12.2 % (11.5-14.5); WHITE BLOOD COUNT 7.6 10^3/ul (4.8-10.8)
[2017-04-07 20:47] LABS: ADD UMIC YES; UR ASCORBIC ACID NEGATIVE (NEGATIVE); UR BILIRUBIN (Dip) NEGATIVE (NEGATIVE); UR BLOOD (Dip) NEGATIVE (NEGATIVE); UR CLARITY CLEAR (CLEAR); UR COLOR STRAW (YELLOW); UR GLUCOSE (Dip) 3+ mg/dL (NEGATIVE); UR KETONES (Dip) NEGATIVE (NEGATIVE); UR LEUKOCYTE ESTERASE (Dip) 1+ Leu/ul (NEGATIVE); UR NITRITE (Dip) NEGATIVE (NEGATIVE); UR RBC 1 /HPF (0-5); UR SPECIFIC GRAVITY (Dip) 1.029 (1.003-1.030); UR SQUAMOUS EPITHELIAL CELL FEW /HPF (FEW); UR TOTAL PROTEIN (Dip) NEGATIVE (NEGATIVE); UR UROBILINOGEN (Dip) NEGATIVE (NEGATIVE)
[2017-04-07] MEDS ORDERED: GABA300C16 PO (20:51)
[2017-04-07] MEDS ORDERED: LANT3I SC (20:53)
[2017-04-07] MEDS ORDERED: IBUP-1542 PO (20:54)
[2017-04-07 21:04] LABS: ALANINE AMINOTRANSFERASE 32 IU/L (13-69); ALBUMIN 4.1 g/dl (3.3-4.9); ALBUMIN/GLOBULIN RATIO 1.32; ALKALINE PHOSPHATASE 205 IU/L (42-121); ANION GAP 14 (8-16); ASPARTATE AMINO TRANSFERASE 20 IU/L (15-46); BILIRUBIN,INDIRECT 0.3 mg/dl (0-1.1); BILIRUBIN,TOTAL 0.3 mg/dl (0.2-1.3); BLOOD UREA NITROGEN 19 mg/dl (7-20); CALCIUM 9.4 mg/dl (8.4-10.2); CARBON DIOXIDE 28 mmol/L (21-31); CHLORIDE 94 mmol/L (97-110); CREATININE 0.64 mg/dl (0.44-1.00); POTASSIUM 4.8 mmol/L (3.5-5.1); SODIUM 131 mmol/L (135-144); TOTAL PROTEIN 7.2 g/dl (6.1-8.1)
[2017-04-07 21:12] LABS: GLUCOSE 617 mg/dl (70-220)
[2017-04-07 21:18] LABS: TROPONIN-I < 0.012 ng/ml (0.00-0.12)
[2017-04-07] MEDS ORDERED: SOD CHLORIDE 0.9% 1,000 ML IV ONE (21:30)
[2017-04-07] MEDS ORDERED: FENTAnyl 50 MCG/ML VIAL IV ONE (21:30)
--- NOTE | 2017-04-07 21:31 | RADRPT ---
PROCEDURE: CT Abdomen and Pelvis without contrast. CLINICAL INDICATION: Abdominal pain TECHNIQUE: CT scan of the abdomen and pelvis without contrast was performed on a multidetector hig h-resolution CT scanner. The patient was scanned without intravenous contrast. Coronal and sagittal reformatted images were obtained from the axial source images. Images were reviewed on a high-resol [employer] PACS workstation. The total exam CTDI equals 11.41 mGy and the total exam DLP equals 617.32 mG y-cm. One or more the following dose reduction techniques were utilized: Automated exposure control, adjus tment of the mA and / or kV according to patient's size, or use of iterative reconstruction techniqu e. COMPARISON: 03/01/2017 FINDINGS: Scattered linear atelectasis/fibrosis at the right lung base. No pneumoperitoneum is seen. Very sm all umbilical hernia containing fat only. No abnormality is seen in the liver, gallbladder, spleen. Food material/debris and air in the stomach. No abnormality is seen in the pancreas, adrenals or right kidney. Multiple nonobstructing left renal calcifications are again seen the largest 4 mm in the mid left kidney. No hydronephrosis is seen bilaterally. No ureteral stone is seen bilaterally. Small phleboliths in pelvis. No definite abnormality of the bladder is seen. No definite abnorma lity of the uterus or adnexal regions is seen on CT. No ascites is seen. Calcification in bilatera l common iliac arteries. No abdominal aortic aneurysm is seen. No biliary dilatation is seen. Lik keisha calcified injection granulomas in the subcutaneous fat of the gluteal regions bilaterally. Sto ol seen in much of the colon. There is no evidence of acute appendicitis. There is appearance of an unremarkable appendix.. No dilated small bowel loops are seen. No enlarged lymph nodes are seen in the abdomen or pelvis. Mild degenerative changes at sacroiliac joints. Degenerative changes in thoracolumbar spine. IMPRESSION: Multiple nonobstructing left renal calculi again seen. No hydronephrosis or ureteral stone seen bila terally. Please see above. RPTAT: HJES .Yousif Ceja MD, MD Date Time Electronically viewed and signed by .Yousif Ceja MD, MD on 04/07/2017 21:30 .S/
--- NOTE | 2017-04-07 21:41 | RADRPT ---
PROCEDURE: XR Chest. CLINICAL INDICATION: Abdominal pain. TECHNIQUE: Single frontal view of the chest. COMPARISON: 09/03/2016 FINDINGS: The cardiomediastinal silhouette is within normal limits. The lungs are clear. No signs of pleural f luid or pneumothorax are seen. The osseous structures and soft tissues are unremarkable. IMPRESSION: No evidence for active cardiopulmonary disease. RPTAT: UU Physician Anibal Date Time Electronically viewed and signed by Olga Angel Physician on 04/07/2017 21:41 RS/
[2017-04-07] MEDS ORDERED: morphine 4 MG/ML VIAL IV STA (22:59)
[2017-04-07 23:13] VITALS: TEMP 98.3
[2017-04-08] MEDS ORDERED: HYDROmorphONE 1 MG/ML SYG IV STA (00:56)
[2017-04-08] MEDS ORDERED: INSULIN REGULAR, HUMAN 100 UNIT/1 ML 3ML VIAL SC ONE (01:00)
--- NOTE | 2017-04-08 01:20 | ERA ---
ER Documentation Chief Complaint Date/Time DATE: 04/08/17 TIME: 01:01 Chief Complaint upper belly pain radiating to the sides & back x a day 2day,hx of DM HPI This is a 51-year-old female with a history of poorly controlled diabetes, diabetic peripheral neuropathy, diabetic retinopathy, frequent previous admissions for diabetes related to noncompliance who is presenting with full body pains, most significant in the left flank, progressive worsening of her neuropathy and retinopathy. The patient was evaluated and sent in by her primary care doctor with concerns of her uncontrolled diabetes. The patient also has a history of kidney stones, and she is concerned that she could have a recurrence of a kidney stone in the left side as she has severe left-sided flank pain. She has had chills, but no significant fever. She has had a generalized headache. She does endorse blurry but no double vision. She reports that this is been ongoing for several months. She also endorses tingling and numbness to her hands and feet that have been also worsening over the last several weeks to months. The patient does endorse nausea with nonbilious nonbloody vomiting. She does endorse chest pain but no trouble breathing. Her pain is generalized. She endorses general abdominal pain but worse in the suprapubic region. The patient has not noticed any hematuria. She also endorses intermittent constipation. ROS All systems reviewed and are negative except as per history of present illness. Medications Home Meds Active Scripts Aspirin* (Aspirin* EC) 81 Mg Tablet., 81 MG PO DAILY for 30 Days, #30 TAB 1 Refill Prov:TRAVON JETER MD 08/16/16 Sitagliptin Phos/Metformin HCl (Janumet 50-1,000 mg Tablet) 1 Each Tablet, 1 EACH PO BID, #60 TAB Prov:TRAVON JETER MD 08/16/16 Reported Medications Ibuprofen* (Ibuprofen*) 600 Mg Tablet, 600 MG PO Q6H Y for NEEDED, TAB 04/07/17 Insulin Glargine* (Lantus*) 100 Unit/Ml Soln, 30 UNIT SC QHS, #1 VIAL BASAGLAR KWIK PEN-100 UNITS/ML 04/07/17 Gabapentin* (Gabapentin*) 300 Mg Capsule, 300 MG PO TID, #90 CAP 04/07/17 Insulin Regular, Human (Humulin R) 100 Unit/1 Ml Vial, 15 UNIT SC TID, VIAL INJECT 15 UNITS BREAKFAST, LUNCH, DINNER 12/16/16 Docusate Sodium* (Docusate Sodium*) 100 Mg Capsule, 100 MG PO TID, #60 CAP 10/14/16 Loratadine* (Loratadine*) 10 Mg Tablet, 10 MG PO DAILY, #30 TAB 10/14/16 Discontinued Reported Medications Insulin Aspart* (Novolog Insulin Pen*) 100 Unit/Ml Soln, 1 UNIT SC WITH MEALS, EA 12/16/16 Albuterol Sulfate* (Ventolin HFA*) 18 Gm Hfa.aer.ad, 1 PUFF INHALATION INHALE 1 PUFF Q4-Q6 Y for PRN, #1 INHALER 12/16/16 Saline (Deep Sea) 44 Ml [place], 60 ML NASAL 1 SPRAY IEN Q4 TO 6 , SPRAY 12/16/16 Meclizine Hcl* (Meclizine Hcl*) 25 Mg Tablet, 25 MG PO TID Y for DIZZINESS, TAB 10/14/16 Discontinued Scripts Ciprofloxacin Hcl* (Ciprofloxacin Hcl*) 500 Mg Tablet, 500 MG PO BID for 7 Days , TAB Prov:MINDY ROSALES PA-C 03/01/17 Polymyxin B Sulfate-TMP* (Polymyxin B-TMP Eye Drops*) 10 Ml Drops, 1 DROP BOTH EYES QID for 7 Days, #1 BOTTLE Prov:PAULETTE ORDOÑEZ PA-C 02/16/17 Lactobacillus Rhamnosus* (Culturelle*) 1 Each Cap.sprink, 1 CAP PO BID for 10 Days, CAP Prov:ÁNGEL ROGERS. 12/19/16 Levofloxacin* (Levaquin*) 750 Mg Tablet, 750 MG PO DAILY for 8 Days, TAB Prov:ÁNGEL ROGERS. 12/19/16 Pantoprazole* (Protonix*) 40 Mg Tablet.dr, 40 MG PO DAILY for 30 Days, TAB Prov:ÁNGEL ROGERS. 12/19/16 Insulin Glargine* (Lantus*) 100 Unit/Ml Soln, 20 UNIT SC DAILY@20 for 30 Days, 2 Refills Prov:ÁNGEL ROGERS 12/19/16 Tramadol HCl (Tramadol HCl) 50 Mg Tablet, 50 MG PO Q4 Y for PAIN, #30 TAB Prov:KEN,BOLATITO M. 12/19/16 Acetaminophen* (Tylophen*) 500 Mg Capsule, 1 CAP PO Q6H Y for PAIN AND OR ELEVATED TEMP, #30 CAP Prov:JOSEPH WANG PA-C 11/15/16 Gabapentin* (Neurontin*) 100 Mg Capsule, 100 MG PO BID, #60 CAP Prov:TRAVON JETER MD 08/16/16 Allergies Allergies: Coded Allergies: No Known Drug Allergies (Verified Allergy, Unknown, 04/07/17) PMhx/Soc History of Surgery: Yes (c-sec 23 years ago) Anesthesia Reaction: No Hx Neurological Disorder: No Hx Respiratory Disorders: No Hx Cardiac Disorders: Yes (dyslipidemia) Hx Psychiatric Problems: No Hx Miscellaneous Medical Probl: Yes (DM) Hx Alcohol Use: No Hx Substance Use: No Hx Tobacco Use: No Smoking Status: Never smoker FmHx Family History: diabetes Physical Exam Vitals Vital Signs Date Time Temp Pulse Resp B/P Pulse Ox O2 Delivery O2 Flow Rate FiO2 04/07/17 23:13 98.3 89 18 137/68 98 Room Air 04/07/17 18:25 98.9 82 20 123/69 100 Physical Exam Const: Moderate distress related to pain Head: Atraumatic Eyes: Normal Conjunctiva ENT: Normal External Ears, Nose and Mouth. Neck: Full range of motion..~ No meningismus. Resp: Clear to auscultation bilaterally Cardio: Regular rate and rhythm, no murmurs Abd: Soft, non distended, generalized abdominal tenderness, worse in the suprapubic region, Normal bowel sounds Skin: No petechiae or rashes Back: No midline tenderness, bilateral flank tenderness Ext: No cyanosis, or edema Neur: Awake and alert, strength intact in all extremities, sensation diminished in all extremities Psych: Normal Mood and Affect Result Diagram: 04/07/17201904/07/172019 Results 24 hrs Laboratory Tests Test 04/07/17 20:00 04/07/17 20:20 04/07/17 20:33 04/07/17 23:53 Urine Color STRAW Urine Clarity CLEAR Urine pH 7.0 Urine Specific [place] 1.029 Urine Ketones NEGATIVEmg/dL Urine Nitrite NEGATIVEmg/dL Urine Bilirubin NEGATIVEmg/dL Urine Urobilinogen NEGATIVEmg/dL Urine Leukocyte Esterase 1+Usha/ul Urine Microscopic RBC 1/HPF Urine Microscopic WBC 11/HPF Urine Squamous Epithelial Cells FEW/HPF Urine Hemoglobin NEGATIVEmg/dL Urine Glucose 3+mg/dL Urine Total Protein NEGATIVEmg/dl White Blood Count 7.610^3/ul Red Blood Count 4.3410^6/ul Hemoglobin 13.6g/dl Hematocrit 38.7% Mean Corpuscular Volume 89.2fl Mean Corpuscular Hemoglobin 31.3pg Mean Corpuscular Hemoglobin Concent 35.1g/dl Red Cell Distribution Width 12.2% Platelet Count 51071^3/UL Mean Platelet Volume 11.7fl Neutrophils % 63.2% Lymphocytes % 27.1% Monocytes % 6.9% Eosinophils % 1.3% Basophils % 0.8% Nucleated Red Blood Cells % 0.0/100WBC Neutrophils # (Manual) 510^3/ul Lymphocytes # 2.110^3/ul Monocytes # 0.510^3/ul Eosinophils # 0.110^3/ul Basophils # 0.110^3/ul Nucleated Red Blood Cells # 0.010^3/ul Sodium Level 131mmol/L Potassium Level 4.8mmol/L Chloride Level 94mmol/L Carbon Dioxide Level 28mmol/L Anion Gap 14 Blood Urea Nitrogen 19mg/dl Creatinine 0.64mg/dl Glucose Level 617mg/dl Calcium Level 9.4mg/dl Total Bilirubin 0.3mg/dl Direct Bilirubin 0.00mg/dl Indirect Bilirubin 0.3mg/dl Aspartate Amino Transf (AST/SGOT) 20IU/L Alanine Aminotransferase (ALT/SGPT) 32IU/L Alkaline Phosphatase 205IU/L Troponin I < 0.012ng/ml Total Protein 7.2g/dl Albumin 4.1g/dl Globulin 3.10g/dl Albumin/Globulin Ratio 1.32 Lipase 176U/L Serum HCG, Qualitative NEGATIVE Bedside Urine pH (LAB) 6.5 Bedside Urine Protein (LAB) Negative Bedside Urine Glucose (UA) 0.50% Bedside Urine Ketones (LAB) Negative Bedside Urine Blood Trace-intact Bedside Urine Nitrite (LAB) Negative Bedside Urine Leukocyte Esterase (L Negative Bedside Glucose 384mg/dL Current Medications Medications (Trade) Dose Ordered Sig/Tyree Route PRN Reason Start Time Stop Time Status Last Admin Dose Admin Sodium Chloride (NS) 1,000 ml @ 1,000 mls/hr Q1H STAT IV 8/18/17 20:30 04/07/17 21:29 DC 04/07/17 21:11 Ondansetron HCl (Zofran Inj) 4 mg ONCE STAT IV 04/07/17 20:30 04/07/17 20:33 DC 04/07/17 21:11 Ketorolac Tromethamine 30 mg 30 mg ONCE STAT IV 04/07/17 20:30 04/07/17 20:33 DC 04/07/17 21:11 Sodium Chloride (NS) 1,000 ml @ 1,000 mls/hr Q1H ONCE IV 04/07/17 21:30 04/07/17 22:29 DC 04/07/17 21:42 Fentanyl (Sublimaze) 50 mcg ONCE ONCE IV 04/07/17 21:30 04/07/17 21:31 DC 04/07/17 21:42 Morphine Sulfate (morphine) 4 mg ONCE STAT IV 04/07/17 22:59 04/07/17 23:15 DC 04/07/17 23:20 Hydromorphone HCl (Dilaudid) 1 mg ONCE STAT IV 04/08/17 00:56 04/08/17 00:58 DC Insulin Human Regular (Humulin R) 7 unit ONCE ONCE SC 04/08/17 01:00 04/08/17 01:01 Procedures/MDM The patient's presentation warrants further workup. The patient has known history of hypoglycemia, and her symptoms could be related to chronic elevation of her glucose. While she is a type II diabetic, she will need to be evaluated for DKA. The patient has a history of nephrolithiasis, and her flank pain could potentially be associated with a kidney stone. This will be evaluated as well. Patient's blood work was obtained and reviewed. The patient does not have look cytosis or left shift. She is afebrile and I do not suspect a systemic infection. The patient is not anemic at this time. The patient's CMP does show an elevation of her creatinine above her baseline, which could indicate acute kidney injury. The patient does have bilateral flank pain. This could be related to a diabetic nephropathy. Again, nephrolithiasis will be evaluated for. The patient's blood sugar was initially greater than 600. The patient's CT of the abdomen and pelvis did reveal multiple left-sided kidney stones but no signs of obstruction or inflammation or infection. I do not suspect pyelonephritis. There is no obvious evidence of obstruction, but the patient could have had a kidney stone that led to her significant pain that has passed. The patient may require a urology consult in the hospital. The patient was given pain medication to help control her pain in the ER. However, her pain was never adequately controlled. At this time, I feel that the patient requires admission to the hospital for pain management, further treatment of her significant hyperglycemia, further management of her complications of poorly controlled diabetes. The patient's sugar did come down to around 360 after receiving 2 L of normal saline. The patient was also given insulin in the emergency department. The patient's vital signs were stable in the ER. Departure Diagnosis: Primary Impression: Type 2 diabetes mellitus with hyperglycemia Qualified Code: E11.65 - Type 2 diabetes mellitus with hyperglycemia, with long-term current use of insulin Additional Impressions: Flank pain LEESA (acute kidney injury) Diabetic neuropathy Qualified Code: E11.42 - Diabetic polyneuropathy associated with type 2 diabetes mellitus Condition: Serious HUGH HODGES MD Apr 08, 2017 01:12
[2017-04-08] MEDS ORDERED: ONDANSETRON 4 MG INJ IV PRN ×2 (01:30→03:30)
[2017-04-08] MEDS ORDERED: ACETAMINOPHEN 325 MG TAB PO PRN (01:30)
[2017-04-08 03:10] VITALS: BP 120/68; PULSE 75; RESP 18
[2017-04-08] MEDS ORDERED: morphine 2 MG INJ IV PRN (03:30)
[2017-04-08] MEDS ORDERED: DEXTROSE 50% 50 ML SYRINGE IV PRN ×4 (04:00→07:00)
[2017-04-08] MEDS ORDERED: GLUCOSE GEL 15 GRAM TUBE PO PRN ×4 (04:00→07:00)
[2017-04-08] MEDS ORDERED: GLUCOSE GEL 15 GRAM TUBE BUCCAL PRN ×2 (04:00→07:00)
[2017-04-08] MEDS ORDERED: GLUCAGON 1 MG INJ IM PRN ×2 (04:00→07:00)
[2017-04-08] MEDS ORDERED: INSULIN ASPART [NOVOLOG] 3 ML PEN SC SCH (05:00)
--- NOTE | 2017-04-08 05:50 | HP ---
Date/Time of Note Date/Time of Note DATE: 04/08/17 TIME: 05:41 Assessment/Plan VTE Prophylaxis VTE Prophylaxis Intervention: heparin Assessment/Plan Assessment/Plan 1. UTI, with probable left-sided pyelonephritis -Urinalysis is consistent with UTI and given left flank pain and left kidney stones, diagnosis of pyelonephritis is a possibility. Notes that CT scan did not show perinephric stranding or any other sign of pyelonephritis. -will treat with IV antibiotic -Follow-up urine culture results -Continue pain management 2. Diabetes with hyperglycemia -Continue IV fluids and insulin with adjustment as needed 3. Mild hyponatremia, likely pseudohyponatremia from hyperglycemia -Continue IV fluid for hyperglycemia. Will check a.m. lab HPI/ROS Admit Date/Time Admit Date/Time Apr 08, 2017 at 01:21 Hx of Present Illness This is a 51-year-old female with a history of diabetes, dyslipidemia and nonobstructing left kidney stones who was sent by her PMD for evaluation of uncontrolled diabetes. Patient complains of abdominal pain, subjective fever and left flank pain. She was admitted here 3 months ago for flank pain and abdominal pain. At that time she was treated for pyelonephritis. Urine culture was positive for E. coli and strep agalactiae. When she presented to the ER this time, vitals were stable. Labs shows blood glucose greater than 600 and a sodium of 131. CT abdomen/pelvis shows multiple nonobstructing left renal calculi which were seen before. Urinalysis shows UTI. Patient was given antibiotic and IV fluid. . PMH/Family/Social Past Medical History Medical History: diabetes, urinary tract infection, other (Nonobstructing left kidney stones) Past Surgical History Past Surgical Hx: no surgical history, other Social History Alcohol Use: none Smoking Status: Unknown if ever smoked Drug Use: none Exam/Review of Systems Vital Signs Vitals Vital Signs Date Time Temp Pulse Resp B/P Pulse Ox O2 Delivery O2 Flow Rate FiO2 04/08/17 03:10 98.3 75 18 120/68 97 Room Air Exam Constitutional: alert, oriented, well developed Head: atraumatic, normocephalic Eyes: EOMI, PERRL Respiratory: clear to auscultation, normal air movement Cardiovascular: nl pulses, regular rate and rhythm Gastrointestinal: other (Left flank tenderness), soft, tender Extremities: normal pulses Labs Result Diagram: 8/18/17 2020 8/18/17 2020 Medications Medications Current Medications Morphine Sulfate (morphine) 2 mg Q4H PRN IV PAIN; Start 04/08/17 at 03:30 Ondansetron HCl (Zofran Inj) 4 mg Q6H PRN IV NAUSEA AND/OR VOMITING; Start at 03:30 Diagnostic Test (Pha) (Accu-Chek) 1 ea 02 XX ; Start 04/09/17 at 02:00 Miscellaneous Information 1 ea NOTE XX ; Start 04/08/17 at 04:00 Glucose (Glutose) 15 gm Q15M PRN PO DECREASED GLUCOSE; Start 04/08/17 at 04:00 Glucose (Glutose) 22.5 gm Q15M PRN PO DECREASED GLUCOSE; Start 04/08/17 at 04: 00 Dextrose (D50w Syringe) 25 ml Q15M PRN IV DECREASED GLUCOSE; Start 04/08/17 at 04:00 Dextrose (D50w Syringe) 50 ml Q15M PRN IV DECREASED GLUCOSE; Start 04/08/17 at 04:00 Glucagon (Glucagen) 1 mg Q15M PRN IM DECREASED GLUCOSE; Start 04/08/17 at 04:00 Glucose 15 gm 15 gm Q15M PRN BUCCAL DECREASED GLUCOSE; Start 04/08/17 at 04:00 Ceftriaxone Sodium (Rocephin) 50 ml @ 100 mls/hr Q24H IVPB ; Start 04/08/17 at 04:30 Insulin Glargine (Lantus) 30 unit QHS SC ; Start 04/08/17 at 21:00; Status UNV Insulin Human Regular (Humulin R) 15 unit TID SC ; Start 04/08/17 at 09:00; Status UNV Miscellaneous Information 1 each BID PO ; Start 04/08/17 at 09:00; Status UNV Aspirin (Halfprin) 81 mg DAILY PO ; Start 04/08/17 at 09:00; Status UNV Docusate Sodium (Colace) 100 mg BID PO ; Start 04/08/17 at 09:00; Status UNV Gabapentin (Neurontin) 300 mg TID PO ; Start 04/08/17 at 09:00; Status UNV Loratadine (Claritin) 10 mg DAILY PO ; Start 04/08/17 at 09:00; Status UNV PAULETTE CANNON MD Apr 08, 2017 05:50
[2017-04-08] MEDS: CEFTRIAXONE 1 GM/NS 50 ML IVPB SCH (06:25)
[2017-04-08 07:15] LABS: BASOPHILS % 0.6 % (0.0-2.0); EOSINOPHILS # 0.1 10^3/ul (0.0-0.5); EOSINOPHILS % 1.9 % (0.0-7.0); HEMATOCRIT 37.3 % (37.0-47.0); LYMPHOCYTES # 1.9 10^3/ul (0.8-2.9); MEAN CORPUSCULAR HEMOGLOBIN 31.3 pg (29.0-33.0); MEAN CORPUSCULAR HGB CONC 34.9 g/dl (32.0-37.0); MEAN CORPUSCULAR VOLUME 89.9 fl (82.0-101.0); MONOCYTE # 0.5 10^3/ul (0.3-0.9); MONOCYTES % 6.7 % (0.0-11.0); NEUTROPHILS % 61.2 % (39.0-77.0); PLATELET COUNT 282 10^3/UL (140-415); RED BLOOD COUNT 4.15 10^6/ul (4.20-5.40); RED CELL DISTRIBUTION WIDTH 12.2 % (11.5-14.5); WHITE BLOOD COUNT 6.7 10^3/ul (4.8-10.8)
[2017-04-08 07:45] LABS: ALBUMIN 3.2 g/dl (3.3-4.9); ALBUMIN/GLOBULIN RATIO 1.03; BILIRUBIN,INDIRECT 0.4 mg/dl (0-1.1); BILIRUBIN,TOTAL 0.4 mg/dl (0.2-1.3); CALCIUM 8.4 mg/dl (8.4-10.2); CREATININE 0.57 mg/dl (0.44-1.00); MAGNESIUM 2.1 mg/dl (1.7-2.5); PHOSPHORUS 3.2 mg/dl (2.5-4.9); POTASSIUM 4.3 mmol/L (3.5-5.1); TOTAL PROTEIN 6.3 g/dl (6.1-8.1)
[2017-04-08 07:55] VITALS: BP 124/75; RESP 20
[2017-04-08] MEDS: LINAGLIPTIN 5 MG TABLET PO SCH (08:36)
[2017-04-08] MEDS: metFORMIN 500 MG TAB PO SCH ×2 (08:36→17:46)
[2017-04-08] MEDS: LORATADINE 10 MG TAB PO SCH (08:37)
[2017-04-08] MEDS: GABAPENTIN 300 MG CAP PO SCH ×3 (08:38→21:00)
[2017-04-08] MEDS: ASPIRIN (EC) 81 MG TAB PO SCH (08:38)
[2017-04-08] MEDS: DOCUSATE SODIUM 100 MG CAP PO SCH ×2 (08:38→21:00)
[2017-04-08] MEDS: INSULIN ASPART [NOVOLOG] 3 ML PEN SC SCH ×6 (08:53→21:00)
[2017-04-08] MEDS ORDERED: INSULIN GLARGINE [LANtus] 3 ML PEN SC SCH ×2 (09:00→21:00)
[2017-04-08] MEDS ORDERED: NON-FORMULARY/PATIENT OWN MED (Sitagliptin Phos/Metformin HCl (Janumet 50-1,000 mg Tablet) PO SCH (09:00)
[2017-04-08] MEDS ORDERED: CEFTRIAXONE 1 GM INJ IVPB SCH (09:00)
--- NOTE | 2017-04-08 09:35 | PN ---
Date/Time of Note Date/Time of Note DATE: 04/08/17 TIME: 09:31 Assessment/Plan VTE Prophylaxis VTE Prophylaxis Intervention: heparin Assessment/Plan Problems: (1) Abnormal finding on urinalysis Status: Acute Comment: She was admitted to this facility roughly 3 months ago which time she had abnormal culture. Repeat culture is in process right now. She will be treated as if she has infection. I am concerned that she may have infected renal stones even though they are extremely small and therefore may need a urologic intervention in the near future. (2) Nonproliferative diabetic retinopathy associated with type 2 diabetes mellitus Status: Chronic Comment: Noted. Unfortunately the patient has been noncooperative for many years in terms of controlling her diabetes. We will continue to work with this. She does not need ophthalmologic intervention at this moment (3) Hyperlipidemia due to type 2 diabetes mellitus Status: Chronic Comment: Statin therapy. (4) Renal calculus, left Status: Chronic Comment: This is been a long-term problem. If her cultures are again positive then she will need outpatient urologic evaluation for the possibility of intervention to remove these. That would be because we suspect that these are a source of recurring infection. (5) Non-compliance Status: Chronic Comment: Strongly counseled on the rationale treatment risks and benefits of treatment and goals of treatment (6) Type 2 diabetes mellitus with hyperglycemia Status: Chronic Comment: Due to noncompliance she has a history of extremely poor glycemic control over a long period of time. When she is in the hospital on her medications we are able to bring her under control with relative ease. I will continue continue trying to work with her. Please note she has never shown up in my office for outpatient follow-up and evaluation Qualifiers: Diabetes mellitus custodial insulin use: with technician terminal and repeater use Qualified Code : E11.65 - Type 2 diabetes mellitus with hyperglycemia, with long-term current use of insulin (7) Diabetic neuropathy Status: Acute Comment: This is noted. She is not having significant painful neuropathy at this time as such the goal here will be to try and get her under better control. That would be regarding her sugars Qualifiers: Diabetes mellitus type: type 2 Diabetes mellitus complication detail: diabetic polyneuropathy Qualified Code: E11.42 - Diabetic polyneuropathy associated with type 2 diabetes mellitus Subjective 24 Hr Interval Summary Free Text/Dictation Charming female known to me from the last 3 years of admissions. She has a history of poorly controlled diabetes mellitus type 2 having never had an A1c better than 13. She has marginal cooperation with her medications. At this time she reports that she is feeling relatively better than when she came to the emergency room Constitutional: no complaints (Denies fevers chills or sweats) Respiratory: no complaints Cardiovascular: no complaints Exam/Review of Systems Vital Signs Vitals Vital Signs Date Time Temp Pulse Resp B/P Pulse Ox O2 Delivery O2 Flow Rate FiO2 04/08/17 07:55 98.7 74 20 124/75 96 04/08/17 03:10 Room Air Intake and Output 04/07/17 04/07/17 04/08/17 15:00 23:00 07:00 Intake Total 120 ml Balance 120 ml Exam Constitutional: alert, oriented Neck: non-tender, supple Respiratory: clear to auscultation, normal air movement Cardiovascular: nl pulses, regular rate and rhythm Results Result Diagram: 04/08/17 0650 04/08/17 0650 Results 24 hrs Laboratory Tests Test 04/07/17 20:00 04/07/17 20:20 04/07/17 20:33 04/07/17 23:53 Urine Color STRAW Urine Clarity CLEAR Urine pH 7.0 Urine Specific [place] 1.029 Urine Ketones NEGATIVE Urine Nitrite NEGATIVE Urine Bilirubin NEGATIVE Urine Urobilinogen NEGATIVE Urine Leukocyte Esterase 1+ H Urine Microscopic RBC 1 Urine Microscopic WBC 11 H Urine Squamous Epithelial Cells FEW Urine Hemoglobin NEGATIVE Urine Glucose 3+ H Urine Total Protein NEGATIVE White Blood Count 7.6 # Red Blood Count 4.34 Hemoglobin 13.6 Hematocrit 38.7 Mean Corpuscular Volume 89.2 Mean Corpuscular Hemoglobin 31.3 Mean Corpuscular Hemoglobin Concent 35.1 Red Cell Distribution Width 12.2 Platelet Count 277 Mean Platelet Volume 11.7 H Neutrophils % 63.2 Lymphocytes % 27.1 Monocytes % 6.9 Eosinophils % 1.3 Basophils % 0.8 Nucleated Red Blood Cells % 0.0 Neutrophils # (Manual) 5 Lymphocytes # 2.1 Monocytes # 0.5 Eosinophils # 0.1 Basophils # 0.1 Nucleated Red Blood Cells # 0.0 Sodium Level 131 L Potassium Level 4.8 Chloride Level 94 L Carbon Dioxide Level 28 Anion Gap 14 Blood Urea Nitrogen 19 Creatinine 0.64 Glucose Level 617 *H Calcium Level 9.4 Total Bilirubin 0.3 Direct Bilirubin 0.00 Indirect Bilirubin 0.3 Aspartate Amino Transf (AST/SGOT) 20 Alanine Aminotransferase (ALT/SGPT) 32 Alkaline Phosphatase 205 H Troponin I < 0.012 Total Protein 7.2 Albumin 4.1 Globulin 3.10 Albumin/Globulin Ratio 1.32 Lipase 176 Serum HCG, Qualitative NEGATIVE Bedside Urine pH (LAB) 6.5 Bedside Urine Protein (LAB) Negative Bedside Urine Glucose (UA) 0.50% H Bedside Urine Ketones (LAB) Negative Bedside Urine Blood Trace-intact H Bedside Urine Nitrite (LAB) Negative Bedside Urine Leukocyte Esterase (L Negative Bedside Glucose 384 H Test 04/08/17 02:55 04/08/17 06:50 04/08/17 08:34 Bedside Glucose 335 H 254 H White Blood Count 6.7 Red Blood Count 4.15 L Hemoglobin 13.0 Hematocrit 37.3 Mean Corpuscular Volume 89.9 Mean Corpuscular Hemoglobin 31.3 Mean Corpuscular Hemoglobin Concent 34.9 Red Cell Distribution Width 12.2 Platelet Count 282 Mean Platelet Volume 11.0 H Neutrophils % 61.2 Lymphocytes % 29.0 Monocytes % 6.7 Eosinophils % 1.9 Basophils % 0.6 Nucleated Red Blood Cells % 0.0 Neutrophils # (Manual) 4 Lymphocytes # 1.9 Monocytes # 0.5 Eosinophils # 0.1 Basophils # 0.0 Nucleated Red Blood Cells # 0.0 Sodium Level 141 Potassium Level 4.3 Chloride Level 101 Carbon Dioxide Level 28 Anion Gap 16 Blood Urea Nitrogen 18 Creatinine 0.57 Glucose Level 262 #H Hemoglobin A1c 13.8 H Calcium Level 8.4 Phosphorus Level 3.2 Magnesium Level 2.1 Total Bilirubin 0.4 Direct Bilirubin 0.00 Indirect Bilirubin 0.4 Aspartate Amino Transf (AST/SGOT) 19 Alanine Aminotransferase (ALT/SGPT) 28 Alkaline Phosphatase 118 Total Protein 6.3 Albumin 3.2 L Globulin 3.10 Albumin/Globulin Ratio 1.03 Medications Medications Current Medications Morphine Sulfate (morphine) 2 mg Q4H PRN IV PAIN; Start 04/08/17 at 03:30 Ondansetron HCl (Zofran Inj) 4 mg Q6H PRN IV NAUSEA AND/OR VOMITING; Start at 03:30 Diagnostic Test (Pha) (Accu-Chek) 1 ea 02 XX ; Start 04/09/17 at 02:00 Miscellaneous Information 1 ea NOTE XX ; Start 04/08/17 at 04:00 Dextrose (D50w Syringe) 25 ml Q15M PRN IV DECREASED GLUCOSE; Start 04/08/17 at 04:00 Dextrose 50 ml 50 ml Q15M PRN IV DECREASED GLUCOSE; Start 04/08/17 at 04:00 Ceftriaxone Sodium (Rocephin) 50 ml @ 100 mls/hr Q24H IVPB Last administered on 04/08/17 06:25; Admin Dose 100 MLS/HR; Start 04/08/17 at 04:30 Insulin Glargine (Lantus) 30 unit QHS SC ; Start 04/08/17 at 21:00 Aspirin (Halfprin) 81 mg DAILY PO Last administered on 04/08/17 08:38; Admin Dose 81 MG; Start 04/08/17 at 09:00 Docusate Sodium (Colace) 100 mg BID PO Last administered on 04/08/17 08:38; Admin Dose 100 MG; Start 04/08/17 at 09:00 Gabapentin (Neurontin) 300 mg TID PO Last administered on 04/08/17 08:38; Admin Dose 300 MG; Start 04/08/17 at 09:00 Loratadine (Claritin) 10 mg DAILY PO Last administered on 04/08/17 08:37; Admin Dose 10 MG; Start 04/08/17 at 09:00 Miscellaneous Information 1 ea NOTE XX ; Start 04/08/17 at 07:00 Glucose (Glutose) 15 gm Q15M PRN PO DECREASED GLUCOSE; Start 04/08/17 at 07:00 Glucose (Glutose) 22.5 gm Q15M PRN PO DECREASED GLUCOSE; Start 04/08/17 at 07: 00 Dextrose (D50w Syringe) 25 ml Q15M PRN IV DECREASED GLUCOSE; Start 04/08/17 at 07:00 Dextrose (D50w Syringe) 50 ml Q15M PRN IV DECREASED GLUCOSE; Start 04/08/17 at 07:00 Glucagon (Glucagen) 1 mg Q15M PRN IM DECREASED GLUCOSE; Start 04/08/17 at 07:00 Glucose (Glutose) 15 gm Q15M PRN BUCCAL DECREASED GLUCOSE; Start 04/08/17 at 07 :00 Linagliptin (Tradjenta) 5 mg DAILY PO Last administered on 04/08/17 08:36; Admin Dose 5 MG; Start 04/08/17 at 09:00 ESTHER AARON MD Apr 08, 2017 09:35
[2017-04-08 14:00] VITALS: BP 80/46; RESP 18
[2017-04-08 19:56] VITALS: BP 92/59; RESP 20
[2017-04-08] MEDS: ATORVASTATIN 20 MG TAB PO SCH (21:00)
[2017-04-09 01:36] VITALS: BP 111/60; RESP 16
[2017-04-09] MEDS: ACCU-CHEK XX SCH (02:00)
[2017-04-09] MEDS: CEFTRIAXONE 1 GM/NS 50 ML IVPB SCH (04:57)
[2017-04-09 08:36] VITALS: BP 121/71; RESP 18
--- NOTE | 2017-04-09 08:58 | PN ---
Date/Time of Note Date/Time of Note DATE: 04/09/17 TIME: 08:55 Assessment/Plan VTE Prophylaxis VTE Prophylaxis Intervention: heparin Lines/Catheters IV [facility] Saline Lock Assessment/Plan Problems: (1) Abdominal pain Status: Acute Comment: The patient has been admitted for what is believed to be urinary infection. Urine culture is negative and on review of the available data I suspect this is actually obstipation induced pain. Suspect this is happened on more than a single occasion. She will be treated with laxatives and should be able to be discharged tomorrow. In the meantime we need to work on her cooperation see below Qualifiers: Abdominal location: generalized Qualified Code: R10.84 - Generalized abdominal pain (2) Nonproliferative diabetic retinopathy associated with type 2 diabetes mellitus Status: Chronic Comment: As per ophthalmology as an outpatient no inpatient need for intervention (3) Hyperlipidemia due to type 2 diabetes mellitus Status: Chronic Comment: Continue on statin therapy (4) Renal calculus, left Status: Chronic Comment: This is nonobstructing. Given the negative urine culture I do not believe the specific intervention is presently required (5) Non-compliance Status: Chronic Comment: This is a vexing problem with this patient. I am somewhat concerned there may be some secondary gain for her to get attention from outside i.e. family members. This is extremely risky if it is in fact the case as her noncompliance will ultimately lead to target organ damage from her underlying medical problems and not taking care of herself. She has been counseled again (6) Abnormal finding on urinalysis Status: Acute Comment: Urine culture is negative Subjective 24 Hr Interval Summary Free Text/Dictation Patient reports that she has pain in the lower abdomen also in the right flank area. Constitutional: no complaints (Denies fevers chills or sweats) Respiratory: no complaints (No respiratory complaints) Cardiovascular: no complaints Gastrointestinal: pain (Lower abdominal pain and right flank pain that comes and goes in a colicky fashion) Genitourinary: no complaints Exam/Review of Systems Vital Signs Vitals Vital Signs Date Time Temp Pulse Resp B/P Pulse Ox O2 Delivery O2 Flow Rate FiO2 04/09/17 01:36 98.6 86 16 111/60 98 04/08/17 03:10 Room Air Intake and Output 04/08/17 04/08/17 04/09/17 15:00 23:00 07:00 Intake Total 1100 ml 450 ml Output Total 680 ml Balance 420 ml 450 ml Exam Constitutional: alert, oriented Respiratory: clear to auscultation, normal air movement Cardiovascular: nl pulses, regular rate and rhythm Gastrointestinal: nl liver, spleen, non-tender, soft Results Result Diagram: 04/08/17 0650 04/08/17 0650 Results 24 hrs Laboratory Tests Test 04/08/17 12:32 04/08/17 17:33 04/08/17 20:59 Bedside Glucose 198 208 150 Medications Medications Current Medications Morphine Sulfate (morphine) 2 mg Q4H PRN IV PAIN; Start 04/08/17 at 03:30 Ondansetron HCl (Zofran Inj) 4 mg Q6H PRN IV NAUSEA AND/OR VOMITING; Start at 03:30 Diagnostic Test (Pha) (Accu-Chek) 1 ea 02 XX ; Start 04/09/17 at 02:00 Miscellaneous Information 1 ea NOTE XX ; Start 04/08/17 at 04:00 Dextrose (D50w Syringe) 25 ml Q15M PRN IV DECREASED GLUCOSE; Start 04/08/17 at 04:00 Dextrose 50 ml 50 ml Q15M PRN IV DECREASED GLUCOSE; Start 04/08/17 at 04:00 Ceftriaxone Sodium (Rocephin) 50 ml @ 100 mls/hr Q24H IVPB Last administered on 04/09/17 04:57; Admin Dose 100 MLS/HR; Start 04/08/17 at 04:30 Insulin Glargine (Lantus) 30 unit QHS SC Last administered on 04/08/17 21:02; Admin Dose 30 UNIT; Start 04/08/17 at 21:00 Aspirin (Halfprin) 81 mg DAILY PO Last administered on 04/08/17 08:38; Admin Dose 81 MG; Start 04/08/17 at 09:00 Docusate Sodium (Colace) 100 mg BID PO Last administered on 04/08/17 21:00; Admin Dose 100 MG; Start 04/08/17 at 09:00 Gabapentin (Neurontin) 300 mg TID PO Last administered on 04/08/17 21:00; Admin Dose 300 MG; Start 04/08/17 at 09:00 Loratadine (Claritin) 10 mg DAILY PO Last administered on 04/08/17 08:37; Admin Dose 10 MG; Start 04/08/17 at 09:00 Miscellaneous Information 1 ea NOTE XX ; Start 04/08/17 at 07:00 Glucose (Glutose) 15 gm Q15M PRN PO DECREASED GLUCOSE; Start 04/08/17 at 07:00 Glucose (Glutose) 22.5 gm Q15M PRN PO DECREASED GLUCOSE; Start 04/08/17 at 07: 00 Dextrose (D50w Syringe) 25 ml Q15M PRN IV DECREASED GLUCOSE; Start 04/08/17 at 07:00 Dextrose (D50w Syringe) 50 ml Q15M PRN IV DECREASED GLUCOSE; Start 04/08/17 at 07:00 Glucagon (Glucagen) 1 mg Q15M PRN IM DECREASED GLUCOSE; Start 04/08/17 at 07:00 Glucose (Glutose) 15 gm Q15M PRN BUCCAL DECREASED GLUCOSE; Start 04/08/17 at 07 :00 Linagliptin (Tradjenta) 5 mg DAILY PO Last administered on 04/08/17 08:36; Admin Dose 5 MG; Start 04/08/17 at 09:00 Atorvastatin Calcium (Lipitor) 20 mg HS PO Last administered on 04/08/17 21:00 ; Admin Dose 20 MG; Start 04/08/17 at 21:00 ESTHER AARON MD Apr 09, 2017 08:58
[2017-04-09] MEDS: metFORMIN 500 MG TAB PO SCH ×2 (09:01→17:45)
[2017-04-09] MEDS: ASPIRIN (EC) 81 MG TAB PO SCH (09:01)
[2017-04-09] MEDS: LORATADINE 10 MG TAB PO SCH (09:01)
[2017-04-09] MEDS: DOCUSATE SODIUM 100 MG CAP PO SCH ×2 (09:01→21:35)
[2017-04-09] MEDS: GABAPENTIN 300 MG CAP PO SCH ×3 (09:02→21:35)
[2017-04-09] MEDS: LINAGLIPTIN 5 MG TABLET PO SCH (09:02)
[2017-04-09] MEDS: INSULIN ASPART [NOVOLOG] 3 ML PEN SC SCH ×6 (09:13→21:00)
[2017-04-09] MEDS ORDERED: NA PHOSPHATE/BIPHOS 133 ML ENEMA PR ONE (09:15)
[2017-04-09] MEDS ORDERED: MAGNESIUM CITRATE 300 ML BTL PO ONE (10:30)
[2017-04-09] MEDS ORDERED: GUAIFENESIN/CODEINE 5ML CUP PO PRN (13:30)
[2017-04-09] MEDS ORDERED: GUAIFENESIN/DM 5ML CUP PO PRN (13:30)
--- NOTE | 2017-04-09 13:45 | RADRPT ---
Vent Rate: 84 bpm RR Interval: 0 msec KS Interval: 202 msec QRS Duration: 70 msec QT Interval: 378 msec QTC Interval: 446 msec P-R-T Bond: 51 - 51 - 46 degrees Normal sinus rhythm Normal ECG Electronically Signed By: Aleksandr Wu [id number]
[2017-04-09 15:30] VITALS: BP 99/59; RESP 18
[2017-04-09 19:20] VITALS: BP 97/64; RESP 18
[2017-04-09] MEDS ORDERED: INSULIN GLARGINE [LANtus] 3 ML PEN SC SCH (21:00)
[2017-04-09] MEDS: ATORVASTATIN 20 MG TAB PO SCH (21:35)
[2017-04-10] MEDS: ACCU-CHEK XX SCH (01:52)
[2017-04-10] MEDS: CEFTRIAXONE 1 GM/NS 50 ML IVPB SCH (04:29)
[2017-04-10 07:44] VITALS: BP 107/70; RESP 20
[2017-04-10] MEDS: metFORMIN 500 MG TAB PO SCH (09:15)
[2017-04-10] MEDS: DOCUSATE SODIUM 100 MG CAP PO SCH (09:16)
[2017-04-10] MEDS: LORATADINE 10 MG TAB PO SCH (09:16)
[2017-04-10] MEDS: ASPIRIN (EC) 81 MG TAB PO SCH (09:16)
[2017-04-10] MEDS: GABAPENTIN 300 MG CAP PO SCH (09:16)
[2017-04-10] MEDS: LINAGLIPTIN 5 MG TABLET PO SCH (09:17)
[2017-04-10] MEDS: INSULIN ASPART [NOVOLOG] 3 ML PEN SC SCH ×4 (09:22→11:40)
--- NOTE | 2017-04-10 10:05 | PDOCDIS ---
Discharge Instructions CONDITION Patient Condition: Stable HOME CARE INSTRUCTIONS: Special Diet: carb control FOLLOW UP/APPOINTMENTS Follow-up Plan 1.Follow up with primary care physician in 1 week If you don't have one please let someone know, we can give you resources that may help you pick one. You may also call your insurance company to assign one to you. Review your medication list with your nurse before leaving and if you need new prescriptions please let your nurse know. I may have made changes to your home medications or given you new prescriptions, please let your primary doctor know as well. Stay compliant with your medications and report any side effects to your PCP or pharmacist. Return to the ER if you have any concerns and cannot reach your doctors or call your insurance company, they usually have a nurse that can help you. 2. Call 911 or go to the nearest emergency room if experiencing loss of consciousness, dizziness, chest pain, shortness of breath, vomiting/abdominal pain, speech difficulties, motor weakness or any unusual symptoms. CLAUDIA RODRIGUEZ NP Apr 10, 2017 10:04
[2017-04-10] MEDS ORDERED: NOVO3I SC (10:09)
[2017-04-10] MEDS ORDERED: DOCU-144 PO (10:09)
[2017-04-10] MEDS ORDERED: SENN-53 PO (10:09)
[2017-04-10] MEDS ORDERED: LANT3I SC (10:09)
[2017-04-10] MEDS ORDERED: ATOR20TA65 PO (10:09)
--- NOTE | 2017-04-10 14:24 | DS ---
Date/Time of Note Date/Time of Note DATE: 04/10/17 TIME: 14:19 Discharge Summary Admission/Discharge Info Admit Date/Time Apr 08, 2017 at 01:21 Discharge Date/Time Discharge Diagnosis 1. Abdominal pain most likely constipation induced pain. Resolved 2. Uncontrolled type 2 diabetes with noncompliance and diet regimen. 3. Nonproliferative diabetic retinopathy associated with type 2 diabetes mellitus 4. Hyperlipidemia due to type 2 diabetes mellitus 5. Nonobstructing left renal calculi without hydronephrosis. 6. Possible noncompliance. Patient Condition: Stable Procedures 04/07/2017. CT abdomen and pelvis. Multiple nonobstructing left renal calculi again seen. No hydronephrosis or ureteral stone seen bilaterally. Hospital Course This is a 51-year-old female with a past medical history of type 2 diabetes, hyperlipidemia, nonobstructing left kidney stone, who was sent to the emergency room by her PMD for evaluation of uncontrolled hyperglycemia, abdominal pain associated with left-sided flank pain. Apparently, patient was evaluated at [facility] about 3 months ago for similar complaints and she was treated for pyelonephritis at that time. In the emergency room, patient blood glucose was greater than 600. She also had a low sodium 131. CT abdomen/ pelvis shows multiple nonobstructing left renal calculi which were seen before. Otherwise there was no acute intra-abdominal pathologies and CT. Urinalysis is concerning for UTI. Patient was given antibiotic and IV fluid and was admitted for further evaluation. Patient was continued on IV fluids. She was given IV antibiotics and cultures were sent. Patient was given appropriate pain medications. Hyponatremia is resolved with fluid therapy. Patient was noted with severe constipation which was treated with stool softeners and laxatives. Patient felt improvement in her abdominal pain as constipation was relieved. Her urine culture was negative. At this time, there is no need for continuation of antibiotics. In regards to diabetes, insulin regimen was adjusted based on glycemic status. She was also very much noncompliant with diet regimen and In multiple locations , patient was noted with eating home foods which are mostly fruits. Patient was educated on compliance with that regimen as she is taking insulin. She also had diabetic education. Patient verbalized instructions. Patient also had possible diabetic retinopathy associated with type 2 diabetes for which she already has ophthalmology outpatient appointment this week. At present, she is feeling back to her baseline and was tolerating diet and activities. There is no further abdominal pain or other discomfort. Blood glucose has improved. At this time, there is no further inpatient workup indicated and patient is medically stable for discharge with outpatient follow-up. Plan: Patient will be discharged home. She was instructed to follow-up with outpatient ophthalmology and primary care follow-up. Patient verbalized discharge instructions. Approximately 60 minutes was spent in coordinating the discharge on this patient. Case discussed with Dr. Michaels. . Home Meds Active Scripts Sennosides* (Senna Lax*) 8.6 Mg Tablet, 1 TAB PO Q12H Y for CONSTIPATION, #60 TAB Prov:RODRIGUEZ,CLAUDIA V. PROBATION SUPERVISOR 04/10/17 Docusate Sodium* (Colace*) 100 Mg Capsule, 200 MG PO BID, #60 CAP Prov:RODRIGUZE,CLAUDIA V. PROBATION SUPERVISOR 04/10/17 Insulin Aspart* (Novolog Insulin Pen*) 100 Unit/Ml Soln, 17 UNIT SC AC MEALS, # 1 SYR Prov:RODRIGUEZ,CLAUDIA V. PROBATION SUPERVISOR 04/10/17 Insulin Glargine* (Lantus*) 100 Unit/Ml Soln, 32 UNIT SC QHS, #1 SYR Prov:RODRIGUEZ,CLAUDIA V. PROBATION SUPERVISOR 04/10/17 Atorvastatin Calcium (Atorvastatin Calcium) 20 Mg Tablet, 20 MG PO HS, #30 TAB Prov:RODRIGUEZ,CLAUDIA V. PROBATION SUPERVISOR 04/10/17 Aspirin* (Aspirin* EC) 81 Mg Tablet., 81 MG PO DAILY for 30 Days, #30 TAB 1 Refill Prov:TRAVON JETER MD 08/16/16 Sitagliptin Phos/Metformin HCl (Janumet 50-1,000 mg Tablet) 1 Each Tablet, 1 EACH PO BID, #60 TAB Prov:TRAVON JETER MD 08/16/16 Reported Medications Gabapentin* (Gabapentin*) 300 Mg Capsule, 300 MG PO TID, #90 CAP 04/07/17 Loratadine* (Loratadine*) 10 Mg Tablet, 10 MG PO DAILY, #30 TAB 10/14/16 Discontinued Reported Medications Ibuprofen* (Ibuprofen*) 600 Mg Tablet, 600 MG PO Q6H Y for NEEDED, TAB 04/07/17 Insulin Glargine* (Lantus*) 100 Unit/Ml Soln, 30 UNIT SC QHS, #1 VIAL BASAGLAR KWIK PEN-100 UNITS/ML 04/07/17 Insulin Regular, Human (Humulin R) 100 Unit/1 Ml Vial, 15 UNIT SC TID, VIAL INJECT 15 UNITS BREAKFAST, LUNCH, DINNER 12/16/16 Docusate Sodium* (Docusate Sodium*) 100 Mg Capsule, 100 MG PO TID, #60 CAP 10/14/16 Insulin Aspart* (Novolog Insulin Pen*) 100 Unit/Ml Soln, 1 UNIT SC WITH MEALS, EA 12/16/16 Albuterol Sulfate* (Ventolin HFA*) 18 Gm Hfa.aer.ad, 1 PUFF INHALATION INHALE 1 PUFF Q4-Q6 Y for PRN, #1 INHALER 12/16/16 Saline (Deep Sea) 44 Ml Vill[place], 60 ML NASAL 1 SPRAY IEN Q4 TO 6 , SPRAY 12/16/16 Meclizine Hcl* (Meclizine Hcl*) 25 Mg Tablet, 25 MG PO TID Y for DIZZINESS, TAB 10/14/16 Discontinued Scripts Ciprofloxacin Hcl* (Ciprofloxacin Hcl*) 500 Mg Tablet, 500 MG PO BID for 7 Days , TAB Prov:MINDY ROSALES PA-C 03/01/17 Polymyxin B Sulfate-TMP* (Polymyxin B-TMP Eye Drops*) 10 Ml Drops, 1 DROP BOTH EYES QID for 7 Days, #1 BOTTLE Prov:PAULETTE ORDOÑEZ PA-C 02/16/17 Lactobacillus Rhamnosus* (Culturelle*) 1 Each Cap.sprink, 1 CAP PO BID for 10 Days, CAP Prov:ÁNGEL ROGERS. 12/19/16 Levofloxacin* (Levaquin*) 750 Mg Tablet, 750 MG PO DAILY for 8 Days, TAB Prov:ÁNGEL ROGERS. 12/19/16 Pantoprazole* (Protonix*) 40 Mg Tablet.dr, 40 MG PO DAILY for 30 Days, TAB Prov:ÁNGEL ROGERS. 12/19/16 Insulin Glargine* (Lantus*) 100 Unit/Ml Soln, 20 UNIT SC DAILY@20 for 30 Days, 2 Refills Prov:ÁNGEL ROGERS. 12/19/16 Tramadol HCl (Tramadol HCl) 50 Mg Tablet, 50 MG PO Q4 Y for PAIN, #30 TAB Prov:ÁNGEL ROGERSKar 12/19/16 Acetaminophen* (Tylophen*) 500 Mg Capsule, 1 CAP PO Q6H Y for PAIN AND OR ELEVATED TEMP, #30 CAP Prov:JOSEPH WANG PA-C 11/15/16 Gabapentin* (Neurontin*) 100 Mg Capsule, 100 MG PO BID, #60 CAP Prov:TRAVON JETER MD 08/16/16 Follow-up Plan HOME CARE INSTRUCTIONS: Special Diet: carb control FOLLOW UP/APPOINTMENTS Follow-up Plan 1.Follow up with primary care physician in 1 week If you don't have one please let someone know, we can give you resources that may help you pick one. You may also call your insurance company to assign one to you. Review your medication list with your nurse before leaving and if you need new prescriptions please let your nurse know. I may have made changes to your home medications or given you new prescriptions, please let your primary doctor know as well. Stay compliant with your medications and report any side effects to your PCP or pharmacist. Return to the ER if you have any concerns and cannot reach your doctors or call your insurance company, they usually have a nurse that can help you. 2. Call 911 or go to the nearest emergency room if experiencing loss of consciousness, dizziness, chest pain, shortness of breath, vomiting/abdominal pain, speech difficulties, motor weakness or any unusual symptoms. Primary Care Provider Not On Staff Doctor Pending Labs Laboratory Tests Test 04/09/17 17:44 04/09/17 21:34 04/10/17 09:01 04/10/17 12:37 Bedside Glucose 97mg/dL (70-220) 146mg/dL (70-220) 321mg/dL (70-220) 244mg/dL (70-220) CLAUDIA RODRIGUEZ NP Apr 10, 2017 14:24
== END 2017-04-10 12:45 | disposition home or self-care (01) | DRG 638 ==
LOC: E/R 18:25 → MS1 04-08 01:21
PROVIDERS: ADMIT Internal Medicine; ATTEND Internal Medicine
DX: E11.65 Type 2 diabetes mellitus with hyperglycemia (principal); N17.9 Acute kidney failure, unspecified; E11.42 Type 2 diabetes mellitus with diabetic polyneuropathy; E87.1 Hypo-osmolality and hyponatremia; N39.0 Urinary tract infection, site not specified; K59.00 Constipation, unspecified; E11.3299 Type 2 diabetes mellitus with mild nonproliferative diabetic retinopathy without macular edema, unspecified eye; N20.0 Calculus of kidney; Z87.442 Personal history of urinary calculi; Z79.4 Long term (current) use of insulin; Z79.84 Long term (current) use of oral hypoglycemic drugs; Z91.14 Patient's other noncompliance with medication regimen
CPT/HCPCS: 36415; 71010; 74176; 80053; 81001; 81003; 82962; 83036; 83690; 83735; 84100; 84484; 84703; 85025; 87086; 93005; 96372; 96374; 96375; J0696; J1170; J1815; J1885; J2270; J2405; J3010; J7030

== ENCOUNTER 2017-05-27 14:30 | Emergency (ER) | payer OTHER ==
[~2017-05-27] VITALS: Ht 157.5 cm; Wt 72.5 kg
[~2017-05-27 14:30] MED LIST changes: -ACET1TAB40 PO; -ACET500C5 PO; -ACYC400T2 PO; -ACYC400T84 PO; -ACYC800T PO; -ALBU18HF INHALATION; +ATOR20TA65 PO; -CIPR500T4 PO; -CYAN500T46 PO; +DOCU-144 PO; -DOCU-159 PO; -ERYT1OIN6 LEFT EYE; -ESOM20CA PO; -ESOM40CA PO; -FAMO-96 PO; -GABA100C PO; +GABA300C16 PO; -GLIP5TAB13 PO; -GLYB2.5T2 PO; -HYDR-3498 PO; -HYDR-906 PO; -IBUP-1542 PO; -INSU100V3 SC; -LACT1CAP57 PO; -LEVO750T25 PO; -MAG355OR15 PO; -MECL-77 PO; -METF1000 PO; -METF500T PO; -NAPR-260 PO; -NAPR-688 PO; -NAPR220C2 PO; -ONDA4TAB11 PO; -ONDA4TAB35 PO; -ONDA4TAB95 PO; -PANT40TA3 PO; -POLY10DR19 BOTH EYES; -PRED20TA PO; -RANI150T9 PO; +SENN-53 PO; -SIMV20TA2 PO; -SITA100T8 PO; -SITA1TBM7 PO; -SODI44SP19 NASAL; -TRAM-40 PO; -TRAM50TA2 PO; -UDROBDM PO
[2017-05-27 14:34] VITALS: Ht 157.5 cm; Wt 72.5 kg
[2017-05-27] MEDS ORDERED: morphine 4 MG/ML VIAL IV STA (16:21)
[2017-05-27] MEDS ORDERED: SOD CHLORIDE 0.9% 1,000 ML IV ONE (16:30)
[2017-05-27 16:56] LABS: BASOPHIL # 0.1 10^3/ul (0.0-0.1); BASOPHILS % 0.7 % (0.0-2.0); EOSINOPHILS # 0.1 10^3/ul (0.0-0.5); HEMATOCRIT 38.3 % (37.0-47.0); HEMOGLOBIN 12.7 g/dl (12.0-16.0); LYMPHOCYTES # 2.1 10^3/ul (0.8-2.9); LYMPHOCYTES % 29.8 % (15.0-51.0); MEAN CORPUSCULAR HEMOGLOBIN 30.8 pg (29.0-33.0); MEAN CORPUSCULAR HGB CONC 33.2 g/dl (32.0-37.0); MEAN PLATELET VOLUME 10.2 fl (7.4-10.4); MONOCYTE # 0.7 10^3/ul (0.3-0.9); MONOCYTES % 9.2 % (0.0-11.0); NEUTROPHIL # 4.1 10^3/ul (1.6-7.5); NEUTROPHILS % 58.2 % (39.0-77.0); PLATELET COUNT 300 10^3/UL (140-415); RED BLOOD COUNT 4.12 10^6/ul (4.20-5.40); RED CELL DISTRIBUTION WIDTH 12.8 % (11.5-14.5); WHITE BLOOD COUNT 7.1 10^3/ul (4.8-10.8)
[2017-05-27 17:17] LABS: ADD UMIC YES; UR ASCORBIC ACID NEGATIVE (NEGATIVE); UR BILIRUBIN (Dip) NEGATIVE (NEGATIVE); UR BLOOD (Dip) NEGATIVE (NEGATIVE); UR CLARITY CLEAR (CLEAR); UR COLOR YELLOW (YELLOW); UR GLUCOSE (Dip) 2+ mg/dL (NEGATIVE); UR KETONES (Dip) NEGATIVE (NEGATIVE); UR LEUKOCYTE ESTERASE (Dip) TRACE Leu/ul (NEGATIVE); UR NITRITE (Dip) NEGATIVE (NEGATIVE); UR RBC 0 /HPF (0-5); UR SPECIFIC GRAVITY (Dip) 1.016 (1.003-1.030); UR TOTAL PROTEIN (Dip) NEGATIVE (NEGATIVE); UR UROBILINOGEN (Dip) NEGATIVE (NEGATIVE)
[2017-05-27 17:21] LABS: ALBUMIN 3.8 g/dl (3.3-4.9); ALBUMIN/GLOBULIN RATIO 1.02; BILIRUBIN,INDIRECT 0.1 mg/dl (0-1.1); BILIRUBIN,TOTAL 0.1 mg/dl (0.2-1.3); CALCIUM 9.3 mg/dl (8.4-10.2); CREATININE 0.65 mg/dl (0.44-1.00); POTASSIUM 4.4 mmol/L (3.5-5.1); TOTAL PROTEIN 7.5 g/dl (6.1-8.1)
[2017-05-27] MEDS ORDERED: IODIXANOL LOCM 100 ML BTL ONE (18:06)
[2017-05-27] MEDS ORDERED: SOD CHLORIDE 0.9% 100 ML ONE (18:06)
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
--- NOTE | 2017-05-27 18:29 | RADRPT ---
PROCEDURE: XR Bilateral Shoulders. CLINICAL INDICATION: 51-year of age, female. Bilateral shoulder pain. TECHNIQUE: Three views of the right shoulder and three views of the left shoulder. COMPARISON: None available FINDINGS: RIGHT SHOULDER: Negative for evidence of acute fracture or dislocation. There is good range of motion in internal a nd external rotation. Acromioclavicular joint appears normal. Coracoclavicular interval appears normal. There are no periarticular calcifications. The visualized lung is clear. LEFT SHOULDER: Negative for evidence of acute fracture or dislocation. There is good range of motion in internal a nd external rotation. Acromioclavicular joint appears normal. Coracoclavicular interval appears normal. There are no periarticular calcifications. The visualized lung is clear. IMPRESSION: Negative for evidence of acute fracture or dislocation of the right or left shoulder . RPTAT: HCTS Physician Raffi Date Time Electronically viewed and signed by Rickie Magallanes Physician on 05/27/2017 18:29 /
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
[2017-05-27] MEDS ORDERED: TRAM50TA2 PO (18:46)
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
[2017-05-27] MEDS ORDERED: DOCU-144 PO (19:03)
[2017-05-27 19:12] VITALS: BP 130/71; PULSE 82; RESP 20; TEMP 98.7
== END 2017-05-27 20:37 | disposition home or self-care (01) ==
LOC: FTE 14:30
DX: R10.13 Epigastric pain (principal); R07.9 Chest pain, unspecified
CPT/HCPCS: 29125; 36415; 71250; 72040; 73030; 73110; 73130; 74177; 80053; 81001; 83690; 85025; 93005; 96374; J2270; J7030; Q9967; Z7502; Z7610

== ENCOUNTER 2017-08-11 00:03 | Emergency (ER) | payer OTHER ==
[~2017-08-11] VITALS: Ht 162.6 cm; Wt 73.3 kg
[~2017-08-11 00:03] MED LIST changes: +TRAM50TA2 PO
[2017-08-11 00:10] VITALS: Ht 162.6 cm; Wt 73.3 kg
[2017-08-11 04:15] VITALS: BP 121/75; PULSE 88; RESP 20; TEMP 98.3
[2017-08-11] MEDS ORDERED: HYDROCODONE/APAP (5/325) TAB PO STA (04:33)
[2017-08-11] MEDS ORDERED: ACET325T33 PO (04:37)
[2017-08-11] MEDS ORDERED: CLIN-73 PO (04:37)
[2017-08-11] MEDS ORDERED: CLINDAMYCIN 300 MG CAP PO ONE (05:00)
--- NOTE | 2017-08-11 05:55 | ERD ---
ER Documentation Chief Complaint Chief Complaint diabetic right foot HPI 51-year-old female with DM type II presents to the emergency department for evaluation of a diabetic ulcer on her right foot for the past 3 weeks. Patient states that she has been evaluated by her primary care physician today this morning and she was placed on Keflex, her primary care physician has discussed with patient that if pain is not improving for her to go to the ER. Patient presents today complaining of pain and of her right foot ulcer. She denies any fevers, restricted range of motion. She states her blood sugar is controlled ROS All systems reviewed and are negative except as per history of present illness. Medications Home Meds Active Scripts Acetaminophen* (Tylenol*) 325 Mg Tablet, 2 TAB PO Q4 Y for PAIN AND OR ELEVATED TEMP, #30 TAB Prov:JARON FRIEND PA-C 08/11/17 Clindamycin Hcl* (Clindamycin Hcl*) 300 Mg Capsule, 300 MG PO TID for 10 Days, CAP Prov:JARON FRIEND PA-C 08/11/17 Docusate Sodium* (Colace*) 100 Mg Capsule, 100 MG PO TID, #30 CAP Prov:RED PRASAD PA-C 05/27/17 Tramadol HCl (Tramadol HCl) 50 Mg Tablet, 50 MG PO Q6 Y for PAIN, #20 TAB Prov:RED PRASAD PA-C 05/27/17 Sennosides* (Senna Lax*) 8.6 Mg Tablet, 1 TAB PO Q12H Y for CONSTIPATION, #60 TAB Prov:RODRIGUEZ,CLAUDIA V. POWER TOOL REPAIRER 04/10/17 Docusate Sodium* (Colace*) 100 Mg Capsule, 200 MG PO BID, #60 CAP Prov:RODRIGUEZ,CLAUDIA V. POWER TOOL REPAIRER 04/10/17 Insulin Aspart* (Novolog Insulin Pen*) 100 Unit/Ml Soln, 17 UNIT SC AC MEALS, # 1 SYR Prov:RODRIGUEZ,CLAUDIA V. POWER TOOL REPAIRER 04/10/17 Insulin Glargine* (Lantus*) 100 Unit/Ml Soln, 32 UNIT SC QHS, #1 SYR Prov:RODRIGUEZ,CLAUDIA V. POWER TOOL REPAIRER 04/10/17 Atorvastatin Calcium (Atorvastatin Calcium) 20 Mg Tablet, 20 MG PO HS, #30 TAB Prov:RODRIGUEZ,CLAUDIA VKar COUGHLIN 04/10/17 Aspirin* (Aspirin* EC) 81 Mg Tablet., 81 MG PO DAILY for 30 Days, #30 TAB 1 Refill Prov:TRAVON JETER MD 08/16/16 Sitagliptin Phos/Metformin HCl (Janumet 50-1,000 mg Tablet) 1 Each Tablet, 1 EACH PO BID, #60 TAB Prov:TRAVON JETER MD 08/16/16 Reported Medications Gabapentin* (Gabapentin*) 300 Mg Capsule, 300 MG PO TID, #90 CAP 04/07/17 Loratadine* (Loratadine*) 10 Mg Tablet, 10 MG PO DAILY, #30 TAB 10/14/16 Allergies Allergies: Coded Allergies: No Known Drug Allergies (Verified Allergy, Unknown, 05/27/17) PMhx/Soc History of Surgery: Yes (C SECTION, rt corotid artary bipass) Anesthesia Reaction: No Hx Neurological Disorder: No Hx Respiratory Disorders: No Hx Cardiac Disorders: Yes (Dyslipidemia, htn) Hx Psychiatric Problems: No Hx Miscellaneous Medical Probl: Yes (DM) Hx Alcohol Use: No Hx Substance Use: No Hx Tobacco Use: No Smoking Status: Never smoker Physical Exam Vitals Vital Signs Date Time Temp Pulse Resp B/P Pulse Ox O2 Delivery O2 Flow Rate FiO2 08/11/17 04:15 98.3 88 20 121/75 99 Room Air 08/11/17 00:10 98.3 103 20 121/75 99 Physical Exam Const: WDWN. Nontoxic Head: Atraumatic Eyes: Normal Conjunctiva ENT: Normal External Ears, Nose and Mouth. Neck: Full range of motion..~ No meningismus. Resp: Clear to auscultation bilaterally Cardio: Regular rate and rhythm, no murmurs Abd: Soft, non tender, non distended. Normal bowel sounds Skin: ~4cm grade 1 ulcer on right dorsal foot without indurated warm erythema Back: No midline or flank tenderness Ext: No cyanosis, or edema Neur: Awake and alert Psych: Normal Mood and Affect Results 24 hrs Current Medications Medications (Trade) Dose Ordered Sig/Tyree Route PRN Reason Start Time Stop Time Status Last Admin Dose Admin Clindamycin HCl (Cleocin) 300 mg ONCE ONCE PO 08/11/17 05:00 08/11/17 05:01 DC 08/11/17 04:51 Acetaminophen/ Hydrocodone Bitart (Gallagher (5/325)) 2 tab ONCE STAT PO 08/11/17 04:33 08/11/17 04:34 DC 08/11/17 04:51 Procedures/MDM This is a 51-year-old female with a history of diabetes type 2 presenting to the emergency department for evaluation of a right foot ulcer that appears to be grade 1. There was no evidence of cellulitis or abscess. Patient was seen at her primary care physician this morning and was given Keflex. Patient has only taken Keflex for 1 day. Patient is appropriate to be discharged home to follow-up with amputation prevention center. I have consulted my supervising physician Dr. Regalado who suggested to change her antibiotic to clindamycin and says she is appropriate to be discharged. Prescription for clindamycin was provided, return precautions. Patient understands agrees with plan Departure Diagnosis: Primary Impression: Diabetic foot ulcer Condition: Stable Patient Instructions: Diabetic Foot Ulcers Referrals: DOCTOR,NOT ON STAFF [facility] Additional Instructions: Visite a rogers devaughn [place] para un EXAMEN.Regrese a estas instalaciones si no se mejora bobby esperbamos o bobby le dijimos. Horicon toda la medicina sheila y bobby se le indic. Regrese a estas instalaciones si no se mejora bobby esperbamos o bobby le dijimos. JARON FRIEND PA-C Aug 11, 2017 05:55
== END 2017-08-11 05:03 | disposition home or self-care (01) ==
LOC: FTE 00:03
DX: E11.621 Type 2 diabetes mellitus with foot ulcer (principal); L97.519 Non-pressure chronic ulcer of other part of right foot with unspecified severity; I10 Essential (primary) hypertension; Z79.4 Long term (current) use of insulin; Z79.82 Long term (current) use of aspirin
CPT/HCPCS: Z7502; Z7610; 99283

== ENCOUNTER 2017-09-18 13:20 | Emergency (ER) | END 2017-09-18 13:46 | disposition left against medical advice (07) ==

== ENCOUNTER 2017-09-19 10:49 | Inpatient (IN) | END 2017-09-24 16:32 | disposition home health service (06) | DRG 638 ==

== ENCOUNTER 2017-11-24 17:01 | Emergency (ER) | END 2017-11-24 23:26 | disposition home or self-care (01) ==

== ENCOUNTER 2018-04-04 23:55 | Emergency (ER) | END 2018-04-05 03:31 | disposition home or self-care (01) ==

== ENCOUNTER 2018-04-13 14:05 | Emergency (ER) | END 2018-04-13 17:02 | disposition home or self-care (01) ==

== ENCOUNTER 2018-04-16 12:48 | Emergency (ER) | END 2018-04-16 17:08 | disposition home or self-care (01) ==

== ENCOUNTER 2018-06-01 01:12 | Emergency (ER) | END 2018-06-01 03:11 | disposition home or self-care (01) ==

== ENCOUNTER 2018-10-20 07:14 | Emergency (ER) | payer OTHER ==
[~2018-10-20] VITALS: Ht 160 cm; Wt 63.0 kg
[~2018-10-20 07:14] MED LIST changes: -ASPI-664 PO; +ASPI-817 PO; -ATOR20TA65 PO; +BEN25 PO; +CIPR500T4 PO; -DOCU-144 PO; +DOXY100T20 PO; +FLUT16SP17 NASAL; +INSU100I33 SC; -LANT3I SC; -LORA10TA3 PO; -NOVO3I SC; +OMEP20CA16 PO; -SENN-53 PO; -TRAM50TA2 PO
[2018-10-20 07:18] VITALS: Ht 160 cm; Wt 63.0 kg
--- NOTE | 2018-10-20 07:31 | ERD ---
ER Documentation Chief Complaint Chief Complaint Abdominal pain with dak stools HPI 52-year-old woman complaining of diffuse abdominal pain and cramping with dark loose stools. She denies blood per rectum, no vomiting, no chest pain or shortness of breath, no recent antibiotic use or recent travel. Patient denies dizziness or loss of consciousness. ROS All systems reviewed and are negative except as per history of present illness. Medications Home Meds Active Scripts Ibuprofen* (Motrin*) 600 Mg Tab, 600 MG PO Q8 PRN for PAIN AND/OR INFLAMMATION, #30 TAB Prov:BRISEYDA MESSIAN MD 10/20/18 Loperamide Hcl* (Imodium*) 2 Mg Capsule, 2 MG PO .AFTER EA LOOSE BM PRN for DIARRHEA, #10 TAB Prov:BRISEYDA MESSINA MD 10/20/18 Diphenhydramine Hcl* (Benadryl*) 25 Mg Cap, 25 MG PO Q6 PRN for ITCHING/RASH, #30 TAB Prov:JARON FRIEND PA-C 06/01/18 Doxycycline Hyclate* (Doxycycline Hyclate*) 100 Mg Tablet., 100 MG PO BID for 10 Days, TAB Prov:JARON FRIEND PA-C 06/01/18 Ciprofloxacin Hcl* (Ciprofloxacin Hcl*) 500 Mg Tablet, 500 MG PO BID for 7 Days, TAB Prov:OJ BOWLES MD 04/16/18 Reported Medications Fluticasone Propionate* (Fluticasone Propionate* Nasal) 50 Mcg/[place] - 16 Gm [place].susp, 1 SPRAY NASAL BID, #1 BOTTLE TO EACH NOSTRIL 11/24/17 Insulin Glargine,Hum.rec.anlog (Basaglar Kwikpen U-100) 100 Unit/1 Ml Insuln.pe n, 20 UNIT SC QHS, EA 11/24/17 Omeprazole* (Omeprazole*) 20 Mg Capsule., 20 MG PO DAILY, #30 CAP 11/24/17 Sitagliptin Phos/Metformin HCl (Janumet 50-1,000 mg Tablet) 1 Each Tablet, 1 EACH PO BID, TAB 11/24/17 Gabapentin* (Gabapentin*) 300 Mg Capsule, 300 MG PO TID, #90 CAP 11/24/17 Aspirin* (Aspirin* EC) 81 Mg Tablet.dr, 81 MG PO DAILY, TAB 11/24/17 Allergies Allergies: Coded Allergies: No Known Drug Allergies (Verified Allergy, Unknown, 11/24/17) PMhx/Soc Diabetes mellitus, hypertension, dyslipidemia, diabetic retinopathy History of Surgery: Yes (Bilateral Cataract, c section,) Anesthesia Reaction: No Hx Neurological Disorder: No Hx Respiratory Disorders: Yes (chronic sinus problems) Hx Cardiac Disorders: Yes (CAD) Hx Psychiatric Problems: Yes (depression) Hx Miscellaneous Medical Probl: Yes (Diabetes, history of kidney stone many years ago) Hx Alcohol Use: No Hx Substance Use: No Hx Tobacco Use: No FmHx Family History: diabetes Physical Exam Vitals Vital Signs Date Temp Pulse Resp B/P (MAP) Pulse Ox O2 O2 Flow FiO2 Time Delivery Rate 10/20/18 97.9 76 18 131/82 99 Room Air 09:41 (98) 10/20/18 98.1 84 18 155/84 99 07:18 (107) Physical Exam Const: No acute distress, afebrile Head: Atraumatic Eyes: Normal Conjunctiva ENT: Normal External Ears, Nose and Mouth. Neck: Full range of motion. No meningismus. Resp: Clear to auscultation bilaterally Cardio: Regular rate and rhythm, no murmurs Abd: No McBurney's point tenderness, no Flores sign, no rigidity or rebound, belly is soft without guarding. Bowel sounds normoactive Skin: No petechiae or rashes Back: No midline or flank tenderness Ext: No cyanosis, or edema Neur: Awake and alert x3, no focal deficits or facial asymmetry Psych: Normal Mood and Affect Result Diagram: 10/20/18 0759 10/20/18 0759 Results 24 hrs Laboratory Tests Test 10/20/18 07:59 White Blood Count 6.3 10^3/ul Red Blood Count 4.74 10^6/ul Hemoglobin 14.7 g/dl Hematocrit 44.2 % Mean Corpuscular Volume 93.2 fl Mean Corpuscular Hemoglobin 31.0 pg Mean Corpuscular Hemoglobin Concent 33.3 g/dl Red Cell Distribution Width 12.1 % Platelet Count 278 10^3/UL Mean Platelet Volume 11.0 fl Immature Granulocytes % 0.600 % Neutrophils % 60.3 % Lymphocytes % 27.6 % Monocytes % 8.6 % Eosinophils % 2.4 % Basophils % 0.5 % Nucleated Red Blood Cells % 0.0 /100WBC Immature Granulocytes # 0.040 10^3/ul Neutrophils # 3.8 10^3/ul Lymphocytes # 1.7 10^3/ul Monocytes # 0.5 10^3/ul Eosinophils # 0.2 10^3/ul Basophils # 0.0 10^3/ul Nucleated Red Blood Cells # 0.0 10^3/ul Prothrombin Time 10.9 Sec Prothrombin Time Ratio 0.9 INR International Normalized Ratio 0.77 Activated Partial Thromboplast Time 25.8 Sec Urine Color YELLOW Urine Clarity CLEAR Urine pH 7.0 Urine Specific [place] 1.014 Urine Ketones TRACE mg/dL Urine Nitrite NEGATIVE mg/dL Urine Bilirubin NEGATIVE mg/dL Urine Urobilinogen NEGATIVE mg/dL Urine Leukocyte Esterase NEGATIVE Usha/ul Urine Hemoglobin NEGATIVE mg/dL Urine Glucose 3+ mg/dL Urine Total Protein NEGATIVE mg/dl Sodium Level 140 mmol/L Potassium Level 4.8 mmol/L Chloride Level 100 mmol/L Carbon Dioxide Level 29 mmol/L Anion Gap 11 Blood Urea Nitrogen 21 mg/dl Creatinine 0.63 mg/dl Est Glomerular Filtrat Rate mL/min > 60 mL/min Glucose Level 273 mg/dl Calcium Level 9.8 mg/dl Total Bilirubin 0.3 mg/dl Direct Bilirubin 0.00 mg/dl Indirect Bilirubin 0.3 mg/dl Aspartate Amino Transf (AST/SGOT) 21 IU/L Alanine Aminotransferase (ALT/SGPT) 16 IU/L Alkaline Phosphatase 165 IU/L Total Protein 7.9 g/dl Albumin 4.3 g/dl Globulin 3.60 g/dl Albumin/Globulin Ratio 1.19 Lipase 527 U/L Current Medications Medications Dose Sig/Tyree Start Time Status Last (Trade) Ordered Route PRN Stop Time Admin Dose Reason Admin Sodium 1,000 ml @ Q1H STAT 10/20/18 DC 10/20/18 Chloride 1,000 mls/hr IV 07:38 10/20/18 07:55 08:37 Morphine 4 mg ONCE STAT 10/20/18 DC 10/20/18 Sulfate IV 07:38 10/20/18 07:55 (morphine) 07:39 Ondansetron 4 mg ONCE STAT 10/20/18 DC 10/20/18 HCl (Zofran IV 07:38 10/20/18 07:55 Inj) 07:39 40 ml ONCE STAT 10/20/18 DC 10/20/18 Miscellaneous PO 07:38 10/20/18 07:55 Medication 07:39 (Gi Cocktail (2)) [place]/ 2 tab ONCE STAT 10/20/18 DC 10/20/18 Phenobarbital PO 07:38 10/20/18 07:55 () 07:39 Procedures/MDM IV line was established patient was placed on surveillance monitor rhythm strip revealed a sinus rhythm at about 80 bpm with upright P and T waves. Patient was afebrile I administered 1 L normal saline IV, GI cocktail p.o., morphine 4 mg IV, Zofran 4 mg IV with good response. CT scan of the abdomen and pelvis was performed,IMPRESSION: 1. Again noted is a right pelvic kidney a normal variant. Bilateral tiny nonobstructing renal calcified calculi. No obstructive uropathy bilaterally. 2. No gastrointestinal disease. 3. No intra-abdominal free air fluid abscesses or lymphadenopathy. CBC was unremarkable, electrolytes revealed mild dehydration, liver function tests normal, urinalysis negative for infection. I repeated the patient's abdominal examination remains benign, vital signs remain normal, pain has been controlled and she is asymptomatic at this time. She has had no episodes of diarrhea while in the ER. Differential diagnoses considered, included but not limited to acute coronary syndrome, pulmonary embolism, aortic dissection, abdominal aortic aneurysm, sepsis, stroke, meningitis, encephalitis, pneumonia, appendicitis, cholecystitis, bowel obstruction, pyelonephritis, nephrolithiasis, cystitis, as well as metabolic, hematologic, and electrolyte abnormalities. As well as abscess, cellulitis, fractures, and dislocations. Patient feels much better at this time, and vital signs are normal, symptoms have improved. I did give strict instructions to return to the ED if symptoms continue or worsen, patient will otherwise follow-up with primary care physician. Patient understood instructions and agreed to plan. Disclaimer: Inadvertent spelling and grammatical errors are likely due to EHR/dictation software use and do not reflect on the overall quality of patient care. Also, please note that the electronic time recorded on this note does not necessarily reflect the actual time of the patient encounter. Departure Diagnosis: Primary Impression: Abdominal pain Abdominal location: generalized Qualified Codes: R10.84 - Generalized abdominal pain Additional Impression: Diarrhea Diarrhea type: unspecified type Qualified Codes: R19.7 - Diarrhea, unspecified Condition: BRISEYDA Deshpande MD Oct 20, 2018 07:31
[2018-10-20] MEDS ORDERED: ONDANSETRON 4 MG INJ IV STA (07:38)
[2018-10-20] MEDS ORDERED: LIDOCAINE/MYLANTA 40 ML BTL PO STA (07:38)
[2018-10-20] MEDS ORDERED: BELLADONNA/PHENOBARBITAL TAB PO STA (07:38)
[2018-10-20] MEDS ORDERED: morphine 4 MG/ML VIAL IV STA (07:38)
[2018-10-20] MEDS ORDERED: SOD CHLORIDE 0.9% 1,000 ML IV STA (07:38)
[2018-10-20] MEDS ORDERED: IBUP-1542 PO (09:03)
[2018-10-20] MEDS ORDERED: LOPE2CAP PO (09:03)
[2018-10-20 09:41] VITALS: BP 131/82; PULSE 76; RESP 18
== END 2018-10-20 09:41 | disposition home or self-care (01) ==
LOC: E/R 07:14
DX: R10.84 Generalized abdominal pain (principal); R19.7 Diarrhea, unspecified; E11.9 Type 2 diabetes mellitus without complications; I10 Essential (primary) hypertension; I25.10 Atherosclerotic heart disease of native coronary artery without angina pectoris; Z79.4 Long term (current) use of insulin; Z79.82 Long term (current) use of aspirin
CPT/HCPCS: 74176; 80053; 81003; 83690; 85025; 85610; 85730; J2270; J2405; J7030; Z7610; 36415; 96361; 96374; 96375

== ENCOUNTER 2018-11-25 21:35 | Emergency (ER) | payer OTHER ==
[~2018-11-25] VITALS: Ht 157.5 cm; Wt 66.3 kg
[~2018-11-25 21:35] MED LIST changes: +IBUP-1542 PO; +LOPE2CAP PO
[2018-11-25 21:37] VITALS: BP 159/70; PULSE 90; RESP 19; Ht 157.5 cm; Wt 66.3 kg
[2018-11-25] MEDS ORDERED: LORA10TA3 PO (22:23)
--- NOTE | 2018-11-25 22:27 | ERD ---
ER Documentation Chief Complaint Chief Complaint NEEDS A WORK NOTE CLEARANCE FOR SEASONAL ALLERGY HPI 52-year-old female presents due to seasonal allergies. 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 Patient states that she gets allergies every year this time a year and she usually takes loratadine. She requests a refill for this as well. Denies any cough, fevers, headaches, nausea, vomiting, diarrhea, wheezing. ROS All systems reviewed and are negative except as per history of present illness. Medications Home Meds Active Scripts Loratadine* (Loratadine*) 10 Mg Tablet, 10 MG PO DAILY for allergies, #30 TAB Prov:PAULETTE DAVIS 11/25/18 Ibuprofen* (Motrin*) 600 Mg Tab, 600 MG PO Q8 PRN for PAIN AND/OR INFLAMMATION, #30 TAB Prov:BRISEYDA MESSINA MD 10/20/18 Loperamide Hcl* (Imodium*) 2 Mg Capsule, 2 MG PO .AFTER EA LOOSE BM PRN for DIARRHEA, #10 TAB Prov:BRISEYDA MESSINA MD 10/20/18 Diphenhydramine Hcl* (Benadryl*) 25 Mg Cap, 25 MG PO Q6 PRN for ITCHING/RASH, #3 0 TAB Prov:JARON FRIEND PA-C 06/01/18 Doxycycline Hyclate* (Doxycycline Hyclate*) 100 Mg Tablet., 100 MG PO BID for 10 Days, TAB Prov:JARON RFIEND PA-C 06/01/18 Ciprofloxacin Hcl* (Ciprofloxacin Hcl*) 500 Mg Tablet, 500 MG PO BID for 7 Days, TAB Prov:OJ BOWLES MD 04/16/18 Reported Medications Fluticasone Propionate* (Fluticasone Propionate* Nasal) 50 Mcg/[place] - 16 Gm [place].susp, 1 SPRAY NASAL BID, #1 BOTTLE TO EACH NOSTRIL 11/24/17 Insulin Glargine,Hum.rec.anlog (Basaglar Kwikpen U-100) 100 Unit/1 Ml Insuln.pen, 20 UNIT SC QHS, EA 11/24/17 Omeprazole* (Omeprazole*) 20 Mg Capsule.dr, 20 MG PO DAILY, #30 CAP 11/24/17 Sitagliptin Phos/Metformin HCl (Janumet 50-1,000 mg Tablet) 1 Each Tablet, 1 EACH PO BID, TAB 11/24/17 Gabapentin* (Gabapentin*) 300 Mg Capsule, 300 MG PO TID, #90 CAP 11/24/17 Aspirin* (Aspirin* EC) 81 Mg Tablet.dr, 81 MG PO DAILY, TAB 11/24/17 Allergies Allergies: Coded Allergies: No Known Drug Allergies (Verified Allergy, Unknown, 11/24/17) PMhx/Soc History of Surgery: Yes (c/section x3) Anesthesia Reaction: No Hx Neurological Disorder: No Hx Respiratory Disorders: Yes (chronic sinus problems) Hx Cardiac Disorders: Yes (CAD) Hx Psychiatric Problems: Yes (depression) Hx Miscellaneous Medical Probl: Yes (Diabetes, history of kidney stone many years ago) Hx Alcohol Use: No Hx Substance Use: No Hx Tobacco Use: No Smoking Status: Never smoker FmHx Family History: No diabetes, No coronary disease, No other Physical Exam Vitals Vital Signs Date Temp Pulse Resp B/P (MAP) Pulse Ox O2 O2 Flow FiO2 Time Delivery Rate 11/25/18 98.7 90 19 159/70 99 21:37 (99) Physical Exam Const: No acute distress Head: Atraumatic Eyes: Normal Conjunctiva ENT: Normal External Ears, Nose and Mouth. Neck: Full range of motion. No meningismus. Resp: Clear to auscultation bilaterally Cardio: Regular rate and rhythm, no murmurs Abd: Soft, non tender, non distended. Normal bowel sounds Skin: No petechiae or rashes Back: No midline or flank tenderness Ext: No cyanosis, or edema Neur: Awake and alert Psych: Normal Mood and Affect Procedures/MDM Patient's presentation is consistent with seasonal allergies and I think she is for to go back to work. There is no indication the patient has any kind of virus or infection. I have low suspicion for infectious diseases including pneumonia, sinusitis, strep, or any other infectious disease or emergent condition. Patient given prescription for loratadine. Patient discharged with strict ER precautions. Patient advised to follow up with PMD. All questions answered at discharge. Departure Diagnosis: Primary Impression: Seasonal allergies Condition: Stable Patient Instructions: Seasonal Allergy Referrals: COMMUNITY CLINICS YOU HAVE RECEIVED A MEDICAL SCREENING EXAM AND THE RESULTS INDICATE THAT YOU DO NOT HAVE A CONDITION THAT REQUIRES URGENT TREATMENT IN THE EMERGENCY DEPARTMENT. FURTHER EVALUATION AND TREATMENT OF YOUR CONDITION CAN WAIT UNTIL YOU ARE SEEN IN YOUR DOCTORS OFFICE WITHIN THE NEXT 1-2 DAYS. IT IS YOUR RESPONSIBILITY TO MAKE AN APPOINTMENT FOR FOLOW-UP CARE. IF YOU HAVE A PRIMARY DOCTOR --you should call your primary doctor and schedule an appointment IF YOU DO NOT HAVE A PRIMARY DOCTOR YOU CAN CALL OUR PHYSICIAN REFERRAL HOTLINE AT IF YOU CAN NOT AFFORD TO SEE A PHYSICIAN YOU CAN CHOSE FROM THE FOLLOWING [facility] [address] [facility] [address] [address] [facility] [address] [facility]. [facility] [address] [facility] [facility]. [address] Additional Instructions: FOLLOW UP WITH YOUR PRIMARY CARE PHYSICIAN TOMORROW.Return to this facility if you are not improving as expected. PAULETTE DAVIS Nov 25, 2018 22:27
== END 2018-11-25 22:44 | disposition home or self-care (01) ==
LOC: FTE 21:35
DX: J30.1 Allergic rhinitis due to pollen (principal); E11.9 Type 2 diabetes mellitus without complications; I25.10 Atherosclerotic heart disease of native coronary artery without angina pectoris; Z79.4 Long term (current) use of insulin; Z79.82 Long term (current) use of aspirin
CPT/HCPCS: 99282

== ENCOUNTER 2018-12-27 23:28 | Emergency (ER) | payer OTHER ==
[~2018-12-27] VITALS: Ht 154.9 cm; Wt 67.8 kg
[~2018-12-27 23:28] MED LIST changes: +LORA10TA3 PO
[2018-12-27 23:42] VITALS: Ht 154.9 cm; Wt 67.8 kg
[2018-12-28] MEDS ORDERED: SOD CHLORIDE 0.9% 1,000 ML IV STA (00:18)
[2018-12-28] MEDS ORDERED: ONDANSETRON 4 MG INJ IV STA (00:18)
[2018-12-28] MEDS ORDERED: HYDROmorphONE 1 MG/ML SYG IV STA (00:18)
[2018-12-28] MEDS ORDERED: EMPA10TA PO (01:44)
[2018-12-28] MEDS ORDERED: INSULIN LISPRO 100 UNIT/ML VIAL SC ONE (02:00)
[2018-12-28] MEDS ORDERED: CEFTRIAXONE 1 GM/50 ML (PMX) 50 ML IVPB ONE (02:00)
[2018-12-28] MEDS ORDERED: ACCU-CHEK XX ONE (02:00)
--- NOTE | 2018-12-28 02:19 | ERD ---
ER Documentation Chief Complaint Chief Complaint C/O TERRY FLANK AND PELVIC PAIN X3 DAYS, STATES URINE FEELS HOT HPI This is a 53-year-old female complains of dysuria with left-sided flank pain today with subjective fever at home. The patient says she is had kidney infections in the past this feels similar. Denies any chest pain abdominal pain nausea vomiting diarrhea. No hematuria pain in the back is dull and constant ROS All systems reviewed and are negative except as per history of present illness. Medications Home Meds Active Scripts Loratadine* (Loratadine*) 10 Mg Tablet, 10 MG PO DAILY for allergies, #30 TAB Prov:PAULETTE DAVIS 11/25/18 Reported Medications Empagliflozin (Jardiance) Unknown Strength Tablet, PO QAM, TAB 12/28/18 Fluticasone Propionate* (Fluticasone Propionate* Nasal) 50 Mcg/[place] - 16 Gm [place].susp, 1 SPRAY NASAL BID, #1 BOTTLE TO EACH NOSTRIL 11/24/17 Insulin Glargine,Hum.rec.anlog (Basaglar Kwikpen U-100) 100 Unit/1 Ml Insuln.pen, 20 UNIT SC BID, EA INJECT 15 UNITS SQ IN THE MORNING; 30 UNITS AT BEDTIME DAILY 11/24/17 Sitagliptin Phos/Metformin HCl (Janumet 50-1,000 mg Tablet) 1 Each Tablet, 1 EACH PO BID, TAB 11/24/17 Gabapentin* (Gabapentin*) 300 Mg Capsule, 300 MG PO TID, #90 CAP 11/24/17 Aspirin* (Aspirin* EC) 81 Mg Tablet.dr, 81 MG PO DAILY, TAB 11/24/17 Discontinued Reported Medications Omeprazole* (Omeprazole*) 20 Mg Capsule.dr, 20 MG PO DAILY, #30 CAP 11/24/17 Discontinued Scripts Ibuprofen* (Motrin*) 600 Mg Tab, 600 MG PO Q8 PRN for PAIN AND/OR INFLAMMATION, #30 TAB Prov:BRISEYDA MESSINA MD 10/20/18 Loperamide Hcl* (Imodium*) 2 Mg Capsule, 2 MG PO .AFTER EA LOOSE BM PRN for DIARRHEA, #10 TAB Prov:BRISEYDA MESSINA MD 10/20/18 Diphenhydramine Hcl* (Benadryl*) 25 Mg Cap, 25 MG PO Q6 PRN for ITCHING/RASH, #30 TAB Prov:BASHARDOUST,NUSHA N. PA-C 06/01/18 Doxycycline Hyclate* (Doxycycline Hyclate*) 100 Mg Tablet.dr, 100 MG PO BID for 10 Days, TAB Prov:JARON FRIEND PA-C 06/01/18 Ciprofloxacin Hcl* (Ciprofloxacin Hcl*) 500 Mg Tablet, 500 MG PO BID for 7 Days, TAB Prov:OJ BOWLES MD 04/16/18 Allergies Allergies: Coded Allergies: No Known Drug Allergies (Unverified Allergy, Unknown, 12/28/18) PMhx/Soc History of Surgery: Yes (c/section x3) Anesthesia Reaction: No Hx Neurological Disorder: No Hx Respiratory Disorders: Yes (chronic sinus problems) Hx Cardiac Disorders: Yes (CAD) Hx Psychiatric Problems: Yes (depression) Hx Miscellaneous Medical Probl: Yes (Diabetes, history of kidney stone many years ago) Hx Alcohol Use: No Hx Substance Use: No Hx Tobacco Use: No Smoking Status: Never smoker FmHx Family History: No coronary disease Physical Exam Vitals Vital Signs Date Temp Pulse Resp B/P (MAP) Pulse Ox O2 O2 Flow FiO2 Time Delivery Rate 12/28/18 90 18 150/90 98 Room Air 02:39 (110) 12/28/18 98.2 98 16 124/97 99 Room Air 00:19 (106) 12/27/18 98.1 105 19 126/67 99 23:42 (86) Physical Exam Const: Well-developed, well-nourished Head: Atraumatic, normocephalic Eyes: Normal Conjunctiva, PERRLA, EOMI, normal sclera, no nystagmus ENT: Normal External Ears, Nose and Mouth, moist mucus membranes. Neck: Full range of motion. No meningismus, no lymphadenopathy. Resp: Clear to auscultation bilaterally, no wheezing, rhonchi, rales Cardio: Regular rate and rhythm, no murmurs, S1 S2 present Abd: Soft, non tender x 4, non distended. Normal bowel sounds, no guarding or rebound, no pulsitile abdominal masses or bruits Skin: No petechiae or rashes, no ecchymosis , no maculopapular rash Back: Left CVA tenderness Ext: No cyanosis, or edema, FROM x 4, normal inspection, neurovascularly intact x 4 Neur: Awake and alert, STR 5/5 x 4, sensation intact x 4, no focal findings, cerebellum intact Psych: Normal Mood and Affect Result Diagram: 12/28/18 0056 12/28/18 0056 Results 24 hrs Laboratory Tests Test 12/28/18 00:56 12/28/18 02:28 White Blood Count 7.7 10^3/ul Red Blood Count 4.40 10^6/ul Hemoglobin 13.4 g/dl Hematocrit 40.4 % Mean Corpuscular Volume 91.8 fl Mean Corpuscular Hemoglobin 30.5 pg Mean Corpuscular Hemoglobin Concent 33.2 g/dl Red Cell Distribution Width 12.2 % Platelet Count 284 10^3/UL Mean Platelet Volume 11.5 fl Immature Granulocytes % 0.300 % Neutrophils % 61.1 % Lymphocytes % 27.6 % Monocytes % 8.3 % Eosinophils % 2.0 % Basophils % 0.7 % Nucleated Red Blood Cells % 0.0 /100WBC Immature Granulocytes # 0.020 10^3/ul Neutrophils # 4.7 10^3/ul Lymphocytes # 2.1 10^3/ul Monocytes # 0.6 10^3/ul Eosinophils # 0.2 10^3/ul Basophils # 0.1 10^3/ul Nucleated Red Blood Cells # 0.0 10^3/ul Urine Color YELLOW Urine Clarity SLIGHTLY CLOUDY Urine pH 6.0 Urine Specific [place] 1.024 Urine Ketones NEGATIVE mg/dL Urine Nitrite NEGATIVE mg/dL Urine Bilirubin NEGATIVE mg/dL Urine Urobilinogen NEGATIVE mg/dL Urine Leukocyte Esterase 1+ Usha/ul Urine Microscopic RBC 4 /HPF Urine Microscopic WBC 28 /HPF Urine Mucus FEW /HPF Urine Hemoglobin NEGATIVE mg/dL Urine Glucose 3+ mg/dL Urine Total Protein NEGATIVE mg/dl Sodium Level 138 mmol/L Potassium Level 4.9 mmol/L Chloride Level 99 mmol/L Carbon Dioxide Level 31 mmol/L Anion Gap 8 Blood Urea Nitrogen 38 mg/dl Creatinine 0.58 mg/dl Est Glomerular Filtrat Rate mL/min > 60 mL/min Glucose Level 474 mg/dl Calcium Level 9.5 mg/dl Total Bilirubin 0.2 mg/dl Direct Bilirubin 0.00 mg/dl Indirect Bilirubin 0.2 mg/dl Aspartate Amino Transf (AST/SGOT) 23 IU/L Alanine Aminotransferase (ALT/SGPT) 15 IU/L Alkaline Phosphatase 154 IU/L Total Protein 6.7 g/dl Albumin 3.7 g/dl Globulin 3.00 g/dl Albumin/Globulin Ratio 1.23 Bedside Glucose 434 mg/dL Current Medications Medications Dose Sig/Tyree Start Time Status Last (Trade) Ordered Route PRN Stop Time Admin Dose Reason Admin Sodium 1,000 ml @ Q1H STAT 12/28/18 DC 12/28/18 Chloride 1,000 mls/hr IV 00:18 00:58 12/28/18 01:17 1 mg ONCE STAT 12/28/18 DC 12/28/18 Hydromorphone IV 00:18 00:58 HCl 12/28/18 00:21 (Dilaudid) Ondansetron 4 mg ONCE STAT 12/28/18 DC 12/28/18 HCl (Zofran IV 00:18 00:58 Inj) 12/28/18 00:21 Ceftriaxone 50 ml @ ONCE ONCE 12/28/18 DC 12/28/18 Sodium 100 mls/hr IVPB 02:00 02:31 12/28/18 02:29 Insulin 10 unit ONCE ONCE 12/28/18 DC 12/28/18 Human SC 02:00 02:36 Lispro 12/28/18 02:01 (Humalog) Diagnostic 1 ea 2 HRS AFTER 12/28/18 DC Test (Pha) HUMALOG ONCE 02:00 (Accu-Chek) XX 12/28/18 02:01 Procedures/[place] [id number] Radiology Main Line: [phone] DIAGNOSTIC IMAGING REPORT Patient: KARTHIK LEE : 1965 Age: 53 Sex: F MR #: [id number] DOS: 12/28/18 0020 Ordering MD: PIEDAD MCGUIRE DO Location: E/R Room/Bed: PROCEDURE: CT Abdomen and Pelvis without contrast. CLINICAL INDICATION: Left flank pain. TECHNIQUE: Unenhanced CT scan of the abdomen and pelvis was performed on a multi-detector high-resolution CT scanner. Coronal and sagittal reformatted images were obtained from the axial source images. Images were reviewed on a high-resolution PACS workstation. The total exam CTDI equals 12.8 mGy and the total exam DLP equals 742.6 mGy-cm. DICOM images are available. One or more of the following dose reduction techniques were utilized: 1.) Automated exposure control 2.) Adjustment of the mA +/- kV according to patient's size 3.) Use of iterative reconstruction technique. COMPARISON: 10/20/2018. FINDINGS: Evaluation of the soft tissues and viscera is limited in the absence of co ntrast. Partially visualized mild bibasilar pulmonary subsegmental atelectasis. Heart size is normal without identifiable significant pericardial effusion. Coronary artery calcifications. Mild systemic atherosclerotic calcifications without abdominal aortoiliac aneurysmal dilatation. No pathologic lymphadenopathy identified by imaging criteria. Liver demonstrates normal size and contour, without identifiable focal mass lesion in the absence of intravenous contrast. Gallbladder is mildly distended without identifiable pericholecystic inflammatory change or extrahepatic biliary ductal dilatation. Pancreas demonstrates normal contour, without identifiable peripancreatic inflammatory change. Spleen is normal in size. Adrenal glands appear normal. Moderate gastric distension with heterogeneous material may be physiologic related to recent ingestion or could reflect gastric outlet obstruction or gastroparesis. Bowel is unobstructed without free air, free fluid or focal mesenteric inflammatory change. Feculent material in the distal small bowel may reflect poor peristalsis. Appendix appears normal. Few scattered tiny left colonic diverticuli without evidence of acute diverticulitis. Moderate stool burden throughout the colon may reflect constipation. Redemonstrated ectopic right kidney in the right lower quadrant. Redemonstrated scattered punctate 1-2 mm nonobstructive bilateral nephrolithiasis without hydronephrosis. The ureters run unobstructed to an incompletely distended urinary bladder which is suboptimally evaluated on today's exam. The uterus appears age appropriate. No pathologic adnexal mass identified in the absence of contrast. Osseous structures are stable with mild diffuse bony demineralization and mild multilevel spondylotic changes most pronounced at L5-S1. Healed midline laparotomy wound. Tiny fatty umbilical hernia. Calcified injection granulomata in the bilateral buttocks. IMPRESSION: 1. New moderate gastric distension may be physiologic related to recent ingestion or could reflect gastric outlet obstruction or gastroparesis. 2. Moderate stool burden throughout the colon may reflect constipation. Feculent material in the distal small bowel may reflect poor peristalsis. 3. Minimal left colonic diverticulosis without evidence of acute diverticulitis. The bowel is unobstructed without evidence of perforation or abscess, and the appendix appears normal. 4. Stable ectopic right kidney in the right lower quadrant with scattered punctate bilateral nonobstructive nephrolithiasis without hydronephrosis. 5. Atherosclerosis and coronary artery calcifications. RPTAT: HSAN Amy Alvarez Physician Date Time Electronically viewed and signed by Amy Alvarez Physician on 12/28/2018 02:54 xN/ CC: PIEDAD MCGUIRE DO [phone] Patient's is feeling better. She does not have pyelonephritis. She does have constipation and UTI may have some reflux going up the left ureter causing some ureter spasm. Will discharge with antibiotics for her urine, Macrobid. She received a gram of Rocephin here. Will discharge home with MiraLAX as well for constipation Departure Diagnosis: Primary Impression: Upper urinary tract infection Additional Impression: Constipation Constipation type: unspecified constipation type Qualified Codes: K59.00 - Constipation, unspecified Condition: Stable PIEDAD MCGUIRE DO December 28, 2018 02:19
[2018-12-28] MEDS ORDERED: POLY17PO6 PO (03:06)
[2018-12-28] MEDS ORDERED: NITR-58 PO (03:06)
[2018-12-28] MEDS ORDERED: TRAM50TA2 PO (03:06)
[2018-12-28 05:17] VITALS: BP 138/76; PULSE 84; RESP 18
== END 2018-12-28 05:26 | disposition home or self-care (01) ==
LOC: E/R 23:28
DX: N39.0 Urinary tract infection, site not specified (principal); K59.00 Constipation, unspecified; E11.9 Type 2 diabetes mellitus without complications; I25.10 Atherosclerotic heart disease of native coronary artery without angina pectoris; Z79.4 Long term (current) use of insulin; Z79.82 Long term (current) use of aspirin
CPT/HCPCS: 36415; 74176; 80053; 81001; 82962; 85025; 87040; 87086; 96372; 96374; 96375; J0696; J1170; J1815; J2405; J7030; Z7502

== ENCOUNTER 2019-01-23 15:02 | Emergency (ER) | payer OTHER ==
[~2019-01-23] VITALS: Ht 152.4 cm; Wt 67.0 kg
[~2019-01-23 15:02] MED LIST changes: -BEN25 PO; -CIPR500T4 PO; -DOXY100T20 PO; +EMPA10TA PO; -IBUP-1542 PO; -LOPE2CAP PO; +NITR-58 PO; -OMEP20CA16 PO; +POLY17PO6 PO; +TRAM50TA2 PO
[2019-01-23 15:12] VITALS: Ht 152.4 cm; Wt 67.0 kg
[2019-01-23] MEDS ORDERED: KETOROLAC 15 MG INJ IV STA (17:05)
[2019-01-23] MEDS ORDERED: SOD CHLORIDE 0.9% 1,000 ML IV STA (17:05)
[2019-01-23] MEDS ORDERED: CEFTRIAXONE 1 GM/50 ML (PMX) 50 ML IVPB ONE (17:30)
--- NOTE | 2019-01-23 17:35 | ERD ---
ER Documentation Chief Complaint Chief Complaint right flank pain x 3 days HPI 53-year-old woman complaining of suprapubic abdominal pain, dysuria, increased urinary frequency, bilateral flank pain x3 days patient also had a tactile fever today. She has had some dizziness and nausea but denies vomiting or diarrhea, no hematuria, no blood per rectum or melena, no chest pain or shortness of breath. Patient denies surgical history, denies weight loss. ROS All systems reviewed and are negative except as per history of present illness. Medications Home Meds Active Scripts Cephalexin* (Keflex*) 500 Mg Capsule, 500 MG PO TID for 7 Days, CAP Prov:BRISEYDA MESSINA MD 01/23/19 Naproxen* (Naproxen*) 500 Mg Tablet, 500 MG PO BID PRN for PAIN, #60 TAB Prov:BRISEYDA MESSINA MD 01/23/19 Tramadol HCl (Tramadol HCl) 50 Mg Tablet, 50 MG PO Q6, #20 TAB Prov:PIEDAD MCGUIRE DO 12/28/18 Polyethylene Glycol* (Miralax*) 17 Gm Powd.pack, 17 GM PO DAILY, #7 Prov:PIEDAD MCGUIRE DO 12/28/18 Loratadine* (Loratadine*) 10 Mg Tablet, 10 MG PO DAILY for allergies, #30 TAB Prov:PAULETTE DAVIS 11/25/18 Reported Medications Insulin Lispro (Humalog Kwikpen U-100) 100 Unit/1 Ml Insuln.pen, 10 UNIT SQ TID, EA 01/23/19 Loperamide Hcl* (Loperamide Hcl*) 2 Mg Cap, 2 MG PO NEEDED, CAP 01/23/19 Omeprazole* (Omeprazole*) 40 Mg Capsule.dr, 40 MG PO DAILY, #30 CAP 01/23/19 Albuterol Sulfate* (Ventolin HFA*) 18 Gm Hfa.aer.ad, 2 PUFF INHALATION Q4H, #1 INHALER 01/23/19 Gabapentin* (Gabapentin*) 300 Mg Capsule, 300 MG PO BID, #60 CAP 01/23/19 Empagliflozin (Jardiance) 10 Mg Tablet, 10 MG PO QAM, TAB 01/23/19 Insulin Glargine,Hum.rec.anlog (Basaglar Kwikpen U-100) 100 Unit/1 Ml Insuln.pen, UNIT SC BID, EA INJECT 15 UNITS SQ IN THE MORNING; 30 UNITS AT BEDTIME DAILY 11/24/17 Sitagliptin Phos/Metformin HCl (Janumet 50-1,000 mg Tablet) 1 Each Tablet, 1 EACH PO BID, TAB 11/24/17 Discontinued Reported Medications Empagliflozin (Jardiance) Unknown Strength Tablet, PO QAM, TAB 12/28/18 Fluticasone Propionate* (Fluticasone Propionate* Nasal) 50 Mcg/Galien - 16 Gm Galien.susp, 1 SPRAY NASAL BID, #1 BOTTLE TO EACH NOSTRIL 11/24/17 Gabapentin* (Gabapentin*) 300 Mg Capsule, 300 MG PO TID, #90 CAP 11/24/17 Aspirin* (Aspirin* EC) 81 Mg Tablet.dr, 81 MG PO DAILY, TAB 11/24/17 Discontinued Scripts Nitrofurantoin Monohyd Macrocr* (Macrobid*) 100 Mg Capsr, 100 MG PO BID for 10 Days, CAP Prov:PIEDAD MCGUIRE DO 12/28/18 Allergies Allergies: Coded Allergies: No Known Drug Allergies (Unverified Allergy, Unknown, 01/23/19) PMhx/Soc Diabetes mellitus, hypertension History of Surgery: Yes (c/section x3) Anesthesia Reaction: No Hx Neurological Disorder: No Hx Respiratory Disorders: Yes (chronic sinus problems) Hx Cardiac Disorders: Yes (CAD) Hx Psychiatric Problems: Yes (depression) Hx Miscellaneous Medical Probl: Yes (Diabetes, history of kidney stone many years ago) Hx Alcohol Use: No Hx Substance Use: No Hx Tobacco Use: No Smoking Status: Never smoker FmHx Family History: diabetes Physical Exam Vitals Vital Signs Date Temp Pulse Resp B/P (MAP) Pulse Ox O2 O2 Flow FiO2 Time Delivery Rate 01/23/19 97.6 84 20 130/65 98 Room Air 19:07 (86) 01/23/19 88 18 138/70 100 Room Air 18:49 (92) 01/23/19 98.0 84 19 108/71 98 15:12 (83) Physical Exam GENERAL: Well-developed, well-nourished, well-hydrated, in no apparent distress, looks nontoxic in appearance HEENT: Moist mucous membranes, pink conjunctiva, no cervical spine tenderness or step-off deformities, no goiter, no jaundice or icterus, extraocular movements intact without pain. No submandibular induration, and no pharyngeal erythema NEURO: Alert and oriented 3, cranial nerves II through XII intact bilaterally, pupils equal round reactive to light, no focal deficits or facial asymmetry, sensation intact distally Strength 5/5 in upper and lower extremities bilaterally CARDIAC: Regular rate and rhythm, no murmurs rubs or gallops LUNGS: Clear bilaterally no wheezing crackles or stridor ABDOMEN: Soft nontender, no guarding, no rigidity, no rebound, no psoas sign no obturator sign. Normoactive bowel sounds SKIN: Warm and dry to touch, no abrasions, contusions, or hematomas, no lacerations, no ecchymosis, no target lesions, and without ulcers EXTREMITIES: No clubbing cyanosis or edema, calves are bilaterally symmetrical, no Homans sign, no popliteal cord sign. Distal pulses equal and bilateral PSYCH: Normal affect without agitation or irritability Result Diagram: 01/23/19 1729 01/23/19 1729 Results 24 hrs Laboratory Tests Test 01/23/19 17:29 White Blood Count 7.8 10^3/ul Red Blood Count 4.55 10^6/ul Hemoglobin 14.0 g/dl Hematocrit 41.6 % Mean Corpuscular Volume 91.4 fl Mean Corpuscular Hemoglobin 30.8 pg Mean Corpuscular Hemoglobin Concent 33.7 g/dl Red Cell Distribution Width 12.7 % Platelet Count 285 10^3/UL Mean Platelet Volume 10.4 fl Immature Granulocytes % 0.400 % Neutrophils % 66.0 % Lymphocytes % 23.1 % Monocytes % 8.7 % Eosinophils % 1.3 % Basophils % 0.5 % Nucleated Red Blood Cells % 0.0 /100WBC Immature Granulocytes # 0.030 10^3/ul Neutrophils # 5.1 10^3/ul Lymphocytes # 1.8 10^3/ul Monocytes # 0.7 10^3/ul Eosinophils # 0.1 10^3/ul Basophils # 0.0 10^3/ul Nucleated Red Blood Cells # 0.0 10^3/ul Urine Color YELLOW Urine Clarity CLEAR Urine pH 5.0 Urine Specific [place] 1.028 Urine Ketones NEGATIVE mg/dL Urine Nitrite NEGATIVE mg/dL Urine Bilirubin NEGATIVE mg/dL Urine Urobilinogen NEGATIVE mg/dL Urine Leukocyte Esterase NEGATIVE Usha/ul Urine Hemoglobin NEGATIVE mg/dL Urine Glucose 3+ mg/dL Urine Total Protein NEGATIVE mg/dl Sodium Level 137 mmol/L Potassium Level 4.6 mmol/L Chloride Level 101 mmol/L Carbon Dioxide Level 30 mmol/L Anion Gap 6 Blood Urea Nitrogen 27 mg/dl Creatinine 0.72 mg/dl Est Glomerular Filtrat Rate mL/min > 60 mL/min Glucose Level 387 mg/dl Calcium Level 9.0 mg/dl Total Bilirubin 0.5 mg/dl Direct Bilirubin 0.00 mg/dl Indirect Bilirubin 0.5 mg/dl Aspartate Amino Transf (AST/SGOT) 21 IU/L Alanine Aminotransferase (ALT/SGPT) 20 IU/L Alkaline Phosphatase 140 IU/L Total Protein 7.5 g/dl Albumin 4.1 g/dl Globulin 3.40 g/dl Albumin/Globulin Ratio 1.20 Lipase 218 U/L Current Medications Medications Dose Sig/Tyree Start Time Status Last (Trade) Ordered Route PRN Stop Time Admin Dose Reason Admin Sodium 1,000 ml @ Q1H STAT 01/23/19 DC 01/23/19 Chloride 1,000 mls/hr IV 17:05 01/23/19 17:39 18:04 Ketorolac 15 mg ONCE STAT 01/23/19 DC 01/23/19 Tromethamine IV 17:05 01/23/19 17:39 (Toradol) 17:06 Ceftriaxone 50 ml @ ONCE ONCE 01/23/19 DC 01/23/19 Sodium 100 mls/hr IVPB 17:30 01/23/19 17:39 17:59 Procedures/MDM IV line was established patient was placed on glass mechanic rhythm strip revealed a sinus rhythm at about 80 bpm with upright P and T waves. Patient was afebrile I administered 1 L normal saline IV, ceftriaxone 1 g IV, Toradol 15 mg IV for pain. CBC and electrolytes are normal although patient has hyperglycemia, liver function tests were normal, urine analysis reveals glucosuria Patient does have Patient has no signs or symptoms of diabetic ketoacidosis and labs are fairly unremarkable, and she still has to use her nighttime antidiabetic medications. Patient does have symptoms of UTI and will be treated with oral antibiotics as an outpatient Differential diagnoses considered, included but not limited to acute coronary syndrome, pulmonary embolism, aortic dissection, abdominal aortic aneurysm, sepsis, stroke, meningitis, encephalitis, pneumonia, appendicitis, cho lecystitis, bowel obstruction, pyelonephritis, nephrolithiasis, cystitis, as well as metabolic, hematologic, and electrolyte abnormalities. As well as abscess, cellulitis, fractures, and dislocations. Patient feels much better at this time, and vital signs are normal, symptoms have improved. I did give strict instructions to return to the ED if symptoms continue or worsen, patient will otherwise follow-up with primary care physician. Patient understood instructions and agreed to plan. Disclaimer: Inadvertent spelling and grammatical errors are likely due to EHR/dictation software use and do not reflect on the overall quality of patient care. Also, please note that the electronic time recorded on this note does not necessarily reflect the actual time of the patient encounter. Departure Diagnosis: Primary Impression: Flank pain Additional Impressions: Abdominal pain Abdominal location: lower abdomen, unspecified Qualified Codes: R10.30 - Lower abdominal pain, unspecified Acute UTI Condition: Good BRISEYDA MESSINA MD Jan 23, 2019 17:34
[2019-01-23] MEDS ORDERED: EMPA10TA PO (17:46)
[2019-01-23] MEDS ORDERED: GABA300C16 PO (17:47)
[2019-01-23] MEDS ORDERED: ALBU18HF INHALATION (17:48)
[2019-01-23] MEDS ORDERED: OMEP40CA6 PO (17:49)
[2019-01-23] MEDS ORDERED: LOPE-123 PO (17:50)
[2019-01-23] MEDS ORDERED: INSU100I12 SQ (17:50)
[2019-01-23] MEDS ORDERED: NAPR-688 PO (18:41)
[2019-01-23] MEDS ORDERED: CEPH-443 PO (18:43)
[2019-01-23 19:07] VITALS: BP 130/65; PULSE 84; RESP 20
== END 2019-01-23 19:10 | disposition home or self-care (01) ==
LOC: E/R 15:02
DX: N39.0 Urinary tract infection, site not specified (principal); E11.9 Type 2 diabetes mellitus without complications; I25.10 Atherosclerotic heart disease of native coronary artery without angina pectoris; I10 Essential (primary) hypertension; Z79.4 Long term (current) use of insulin; Z79.82 Long term (current) use of aspirin
CPT/HCPCS: 36415; 74176; 80053; 81003; 83690; 85025; 87086; 96374; 96375; J0696; J1885; J7030; Z7502

== ENCOUNTER 2019-03-29 19:22 | Emergency (ER) | payer OTHER ==
[~2019-03-29] VITALS: Ht 157.5 cm; Wt 67.3 kg
[~2019-03-29 19:22] MED LIST changes: +ALBU18HF INHALATION; -ASPI-817 PO; +BENZ-6 PO; +CEPH-443 PO; -FLUT16SP17 NASAL; +GUAI5SYR2 PO; +HYDR-4011 PO; +IBUP-1542 PO; +INSU100I12 SQ; +LOPE-123 PO; +METO10TA92 PO; +NAPR-688 PO; -NITR-58 PO; +OMEP40CA6 PO
[2019-03-29 19:27] VITALS: PULSE 83; Ht 157.5 cm; Wt 67.3 kg
[2019-03-29] MEDS ORDERED: SOD CHLORIDE 0.9% 500 ML IV STA (19:36)
[2019-03-29] MEDS ORDERED: FAMOTIDINE 20 MG INJ IV STA (19:36)
[2019-03-29] MEDS ORDERED: ONDANSETRON 4 MG INJ IV STA (19:36)
--- NOTE | 2019-03-29 19:41 | ERD ---
ER Documentation Chief Complaint Chief Complaint pt c/o n/v/d x 3 days, with fever and mid epigastric pain that rad to back HPI 53-year-old female, with history of diabetes, presents the emergency department, complaining of 3 days with nausea, vomiting and diarrhea after eating a [employer]. The patient describes the diarrhea as watery, greenish, without blood or mucus, approximately 3 episodes per day associated with burning epigastric pain. The patient denies fever, no chills, no cough, no history of recent traveling. ROS All systems reviewed and are negative except as per history of present illness. Medications Home Meds Active Scripts Hydrocodone/Acetaminophen ([place] 5-325 Tablet) 1 Each Tablet, 1 TAB PO QHS PRN for PAIN, #7 TAB Prov:VINH DIXON MD 03/29/19 Metoclopramide* (Reglan*) 10 Mg Tablet, 10 MG PO TID PRN for NAUSEA AND/OR VOMITING, #12 TAB Prov:VINH DIXON MD 03/29/19 Cephalexin* (Keflex*) 500 Mg Capsule, 500 MG PO TID for 7 Days, CAP Prov:BRISEYDA MESSINA MD 01/23/19 Naproxen* (Naproxen*) 500 Mg Tablet, 500 MG PO BID PRN for PAIN, #60 TAB Prov:BRISEYDA MESSINA MD 01/23/19 Tramadol HCl (Tramadol HCl) 50 Mg Tablet, 50 MG PO Q6, #20 TAB Prov:PIEDAD MCGUIRE DO 12/28/18 Polyethylene Glycol* (Miralax*) 17 Gm Powd.pack, 17 GM PO DAILY, #7 Prov:PIEDAD MCGUIRE DO 12/28/18 Loratadine* (Loratadine*) 10 Mg Tablet, 10 MG PO DAILY for allergies, #30 TAB Prov:PAULETTE DAVIS 11/25/18 Reported Medications Insulin Lispro (Humalog Kwikpen U-100) 100 Unit/1 Ml Insuln.pen, 10 UNIT SQ TID, EA 01/23/19 Loperamide Hcl* (Loperamide Hcl*) 2 Mg Cap, 2 MG PO NEEDED, CAP 01/23/19 Omeprazole* (Omeprazole*) 40 Mg Capsule.dr, 40 MG PO DAILY, #30 CAP 01/23/19 Albuterol Sulfate* (Ventolin HFA*) 18 Gm Hfa.aer.ad, 2 PUFF INHALATION Q4H, #1 INHALER 01/23/19 Gabapentin* (Gabapentin*) 300 Mg Capsule, 300 MG PO BID, #60 CAP 01/23/19 Empagliflozin (Jardiance) 10 Mg Tablet, 10 MG PO QAM, TAB 01/23/19 Insulin Glargine,Hum.rec.anlog (Basaglar Kwikpen U-100) 100 Unit/1 Ml Insuln.pen, UNIT SC BID, EA INJECT 15 UNITS SQ IN THE MORNING; 30 UNITS AT BEDTIME DAILY 11/24/17 Sitagliptin Phos/Metformin HCl (Janumet 50-1,000 mg Tablet) 1 Each Tablet, 1 EACH PO BID, TAB 11/24/17 Allergies Allergies: Coded Allergies: No Known Drug Allergies (Unverified Allergy, Unknown, 01/23/19) PMhx/Soc History of Surgery: Yes (c/section x3) Anesthesia Reaction: No Hx Neurological Disorder: No Hx Respiratory Disorders: Yes (chronic sinus problems) Hx Cardiac Disorders: Yes (CAD) Hx Psychiatric Problems: Yes (depression) Hx Miscellaneous Medical Probl: Yes (Diabetes, history of kidney stone many years ago) Hx Alcohol Use: No Hx Substance Use: No Hx Tobacco Use: No FmHx Family History: diabetes; No coronary disease Physical Exam Vitals Vital Signs Date Temp Pulse Resp B/P (MAP) Pulse Ox O2 O2 Flow FiO2 Time Delivery Rate 03/29/19 97.9 17 145/67 97 Room Air 21:51 (93) 03/29/19 98.6 83 16 141/79 97 19:27 (99) Physical Exam Patient alert, oriented, vital signs stable. HEAD: Normocephalic, atraumatic. EYES: PERRLA, EOMI, Sclera and conjunctiva appear normal. NOSE: Clear and patent nostrils. EARS: Canals clear, tympanic membranes WNL. MOUTH: normal lips and tongue, no oral lesions. THROAT: Normal oropharynx, no tonsillar exudates. NECK: Supple, No lymphadenopathy. Full ROM without pain or tenderness. HEART: RRR, no rubs, murmurs, clicks or gallops. LUNGS: Clear to auscultation. ABDOMEN: Soft, mild tenderness to deep palpation in epigastric area, no peritoneal signs, no masses or hepatosplenomegaly. EXTREMITIES: No edema bilaterally. BACK: Full ROM, no deformity, normal back exam NEURO: Cranial nerves grossly intact, no motor or sensory deficit SKIN: No rashes, no petechia. Result Diagram: 03/29/19200103/29/192001 Results 24 hrs Laboratory Tests Test 03/29/19 20:02 White Blood Count 8.1 10^3/ul Red Blood Count 4.36 10^6/ul Hemoglobin 13.6 g/dl Hematocrit 40.1 % Mean Corpuscular Volume 92.0 fl Mean Corpuscular Hemoglobin 31.2 pg Mean Corpuscular Hemoglobin Concent 33.9 g/dl Red Cell Distribution Width 12.3 % Platelet Count 282 10^3/UL Mean Platelet Volume 11.0 fl Immature Granulocytes % 0.500 % Neutrophils % 66.8 % Lymphocytes % 21.8 % Monocytes % 8.2 % Eosinophils % 2.1 % Basophils % 0.6 % Nucleated Red Blood Cells % 0.0 /100WBC Immature Granulocytes # 0.040 10^3/ul Neutrophils # 5.4 10^3/ul Lymphocytes # 1.8 10^3/ul Monocytes # 0.7 10^3/ul Eosinophils # 0.2 10^3/ul Basophils # 0.1 10^3/ul Nucleated Red Blood Cells # 0.0 10^3/ul Urine Color COLORLESS Urine Clarity CLEAR Urine pH 6.0 Urine Specific [place] 1.015 Urine Ketones NEGATIVE mg/dL Urine Nitrite NEGATIVE mg/dL Urine Bilirubin NEGATIVE mg/dL Urine Urobilinogen NEGATIVE mg/dL Urine Leukocyte Esterase NEGATIVE Usha/ul Urine Hemoglobin NEGATIVE mg/dL Urine Glucose 3+ mg/dL Urine Total Protein NEGATIVE mg/dl Sodium Level 135 mmol/L Potassium Level 5.2 mmol/L Chloride Level 99 mmol/L Carbon Dioxide Level 28 mmol/L Anion Gap 8 Blood Urea Nitrogen 33 mg/dl Creatinine 0.81 mg/dl Est Glomerular Filtrat Rate mL/min > 60 mL/min Glucose Level 363 mg/dl Calcium Level 9.4 mg/dl Total Bilirubin 0.4 mg/dl Direct Bilirubin 0.00 mg/dl Indirect Bilirubin 0.4 mg/dl Aspartate Amino Transf (AST/SGOT) 24 IU/L Alanine Aminotransferase (ALT/SGPT) 27 IU/L Alkaline Phosphatase 181 IU/L Total Protein 7.5 g/dl Albumin 4.1 g/dl Globulin 3.40 g/dl Albumin/Globulin Ratio 1.20 Lipase 158 U/L Current Medications Medications Dose Sig/Tyree Start Time Status Last (Trade) Ordered Route PRN Stop Time Admin Dose Reason Admin Sodium 500 ml @ Q1H STAT 03/29/19 DC 03/29/19 Chloride 500 mls/hr IV 19:36 03/29/19 19:57 20:35 Ondansetron 4 mg ONCE STAT 03/29/19 DC 03/29/19 HCl (Zofran IV 19:36 03/29/19 19:59 Inj) 19:42 Famotidine 20 mg ONCE STAT 03/29/19 DC 03/29/19 (Pepcid Iv) IV 19:36 03/29/19 20:00 19:42 Patient: KARTHIK LEE : 1965 Age: 53 Sex: F MR #: [id number] DOS: 03/29/191935 Ordering MD: VINH DIXON MD Location: [facility] Room/Bed: PROCEDURE: CT Abdomen and Pelvis without contrast. CLINICAL INDICATION: Abdominal and pelvic pain. TECHNIQUE: CT scan of the abdomen and pelvis without contrast was performed. Coronal and sagittal reformatted images were obtained from the axial source images. Images were reviewed on a high-resolution PACS workstation. Total exam DLP is 829 mGy-cm. CTDIvol is 15 mGy. One or more of the following dose reduction techniques were used: Automated exposure control, adjustment of the mA and/or kV according to patient size, use of iterative reconstruction technique. DICOM images are available. COMPARISON: None. FINDINGS: The lung bases are normal. There is no pleural effusion. The liver is normal in size and attenuation. There is no focal hepatic lesion. The gallbladder and bile ducts are normal. The spleen is normal in size. There is no focal splenic lesion. Both adrenals are normal with no enlargement or mass. The pancreas is unremarkable with no mass or evidence of pancreatitis. There is no renal mass or hydronephrosis. Stable ectopic right kidney. There are several 1-2 mm nonobstructing calcifications of the bilateral kidneys.. The abdominal aorta is not dilated. There are vascular calcifications. There is no retroperitoneal lymphadenopathy or mass. There is a 2.8 cm left adnexal soft tissue lesion. The bladder and distal ureters are normal. The periappendiceal region is unremarkable with no evidence of appendicitis. Moderate gastric distension with heterogeneous material may be physiologic related to recent ingestion or could reflect gastric outlet obstruction or gastroparesis. There is a distended urinary bladder. There is no free fluid or free gas. Osseous structures are stable with mild diffuse bony demineralization and mild multilevel spondylotic changes most pronounced at L5-S1. Healed midline laparotomy wound. Tiny fatty umbilical hernia. Calcified injection granulomata in the bilateral buttocks. IMPRESSION: 1. Bilateral nonobstructing nephrolithiasis. 2. Moderate gastric distension with heterogeneous material may be physiologic related to recent ingestion or could reflect gastric outlet obstruction or gastroparesis. 3. Healed midline laparotomy wound. Tiny fatty umbilical hernia. 4. 2.8 cm left adnexal soft tissue lesion. Follow-up pelvic ultrasound recommended to exclude neoplasm. 5. Stable ectopic right kidney. Procedures/MDM Vital signs stable. Differential diagnosis include but not limited to: UTI, colitis, gastroenteritis, kidney stones, irritable bowel syndrome, inflammatory bowel syndrome, malabsorption syndrome, cholelithiasis, food intolerance, medication side effect, pancreatitis, diverticulitis, bowel obstruction. Physical examination and clinical presentation consistent most likely with gastroparesis secondary to uncontrolled type 2 diabetes, no evidence of diabetic ketoacidosis. During the ED course the patient remained stable, no new complaints. The patient received treatment with IV fluids and IV medications presenting overall improvement of the symptoms. Results and clinical impression discussed with the patient who agrees with management. The patient is stable to be treated outpatient and will be discharge d home; some side effects of prescribed medications (headache, rash, nausea, vomiting, diarrhea, drowsiness, habituation, bleeding, hypertension, interactions with other medications) were reviewed. The patient was informed that the evaluation in the emergency department has been done to rule out an acute emergency, therefore, chronic conditions like malignancy or other diseases have not been evaluated; therefore, the patient was instructed to follow up with the primary care provider in the next 48h. If symptoms persist, worsen or new symptoms develop, then patient should return to the ED immediately. Instructions explained and given directly by me to the patient with acknowledgment and demonstrated understanding. Disclaimer: Inadvertent spelling and grammatical errors are likely due to EHR/dictation software use and do not reflect on the overall quality of patient care. Also, please note that the electronic time recorded on this note does not necessarily reflect the actual time of the patient encounter. Departure Diagnosis: Primary Impression: Abdominal pain Additional Impression: Diabetic gastroparesis associated with type 2 diabetes mellitus Condition: Stable Additional Instructions: Muchas chelsie por [facility] para rogers servicio. Esperamos que en rogers visita a la rocío de emergencia rogers problema medico haya sido solucionado y que se sienta mucho mejor. Para estar seguros que rogers mejoria sigue en proceso, le pedimos el favor de hacer lisa magno de seguimiento medico con rogers doctor primario en los proximos 2-4 turner. Lleve con usted estos documentos y las medicinas recetadas. Si luigi sintomas empeoran, NO SE ESPERE, por favor regrese a rocío de emergencia INMEDIATAMENTE. En laine que usted no tenga un mdico de atencin primaria: Llame al mdico o clnica comunitaria de referencia que aparece abajo nathalia las horas de consultorio para hacer lisa magno para que le vean. CLINICAS: [facility] [phone] [facility] [phone] [facility] [phone] [facility] [phone] [facility] [phone] [address] [facility]. [phone] VINH ZAYAS MD Mar 29, 2019 19:41
[2019-03-29 21:51] VITALS: BP 145/67; RESP 17
== END 2019-03-29 21:53 | disposition home or self-care (01) ==
LOC: FTE 19:22
DX: E11.43 Type 2 diabetes mellitus with diabetic autonomic (poly)neuropathy (principal); I25.10 Atherosclerotic heart disease of native coronary artery without angina pectoris; Z79.4 Long term (current) use of insulin
CPT/HCPCS: 36415; 74176; 80053; 81003; 83690; 85025; 96374; 96375; J2405; J7040; Z7502; Z7610

== ENCOUNTER 2019-04-01 20:10 | Emergency (ER) | payer OTHER ==
[~2019-04-01] VITALS: Ht 157.5 cm; Wt 66.9 kg
[2019-04-01 20:13] VITALS: Ht 157.5 cm; Wt 66.9 kg
[2019-04-01 23:04] VITALS: BP 120/72; PULSE 86; RESP 18
== END 2019-04-01 23:05 | disposition home or self-care (01) ==
LOC: FTE 20:10
DX: R05 Cough (principal); E11.9 Type 2 diabetes mellitus without complications; Z79.4 Long term (current) use of insulin
CPT/HCPCS: 71046; 80048; 85025; 87880; Z7502